=== PATIENT | female | born 1940 | race Caucasian/White ===

== ENCOUNTER → 2021-12-08 12:06 | Outpatient (CLI) | payer MEDICARE, SELFPAY ==
--- NOTE | ~2021-12-08 | MM_ITS ---
EXAMINATION: MM screening jorge BI w nathan HISTORY: Screening mammogram TECHNIQUE: Craniocaudal and mediolateral oblique 3-D tomosynthesis images were obtained and synthetic 2-D images were generated. CAD analysis was submitted and interpreted. COMPARISON: 03/08/2010 bilateral screening mammogram BREAST PARENCHYMAL COMPOSITION: The breasts are almost entirely fatty. FINDINGS: There is no evidence of suspicious mass, calcification, or architectural distortion to sugg est malignancy in either breast. There has been no suspicious interval change. IMPRESSION: 1. No mammographic evidence of malignancy. 2. Recommend routine screening mammography in one year. BI-RADS Category 1: Negative Reviewed, dictated and finalized at location A.
== END ==
PROVIDERS: PCP Emergency Medicine; Visit Provider Emergency Medicine
DX: Z12.31 Encounter for screening mammogram for malignant neoplasm of breast (principal)
CPT/HCPCS: 77063; 77067

== ENCOUNTER 2022-01-04 10:39 | Outpatient (CLI) | payer MEDICARE, SELFPAY ==
--- NOTE | ~2022-01-04 | XR_ITS ---
EXAM: XR ankle RT 2V DATE: 01/04/2022 10:59 HISTORY: S99.911A - Unspecified injury of right ankle, initial enc... . COMPARISON: None available. FINDINGS: Slightly decreased mineralization. No acute fracture or dislocation. Old avulsion fracture fragment at the tip of the lateral malleolus. No lytic or blastic lesion. Joint spaces are maintaine d. No erosion or periosteal change. Soft tissue swelling over the medial malleolus. IMPRESSION: No acute osseous finding in the right ankle. Reviewed, dictated and finalized at location K.
== END 2022-01-04 10:40 | disposition home or self-care (01) ==
PROVIDERS: PCP Emergency Medicine; Visit Provider Emergency Medicine
DX: S99.911A Unspecified injury of right ankle, initial encounter (principal); S99.921A Unspecified injury of right foot, initial encounter; X58.XXXA Exposure to other specified factors, initial encounter
CPT/HCPCS: 73600

== ENCOUNTER 2022-01-13 08:16 | Outpatient (CLI) | payer MEDICARE, SELFPAY ==
--- NOTE | ~2022-01-13 | US_ITS ---
EXAMINATION: US art doppler w press LE BI DATE: 01/13/2022 09:03 INDICATION: Peripheral vascular disease, unspecified. TECHNIQUE: Segmental pressures and plethysmographic and Doppler waveforms of the brachial and lower e xtremity arteries were obtained. COMPARISON: CT abdomen and pelvis 09/15/2015, 06/30/2013 FINDINGS: Right and left brachial artery pressures of 133 mm Hg and 132 mm Hg, respectively, are concordant (no rmal difference <= 30 mmHg). The right high-thigh pressure index is 1.20 (normal > 1.2). The right ankle-brachial index (DALTON) is 0 .98 (normal >= 0.9-1.0). The right great toe-brachial index (TBI) is 0.77 (normal >= 0.65). Arterial Doppler waveforms are biphasic from common femoral artery to the ankle. The left high-thigh pressure index is 1.28. The left DALTON is 0.98. The left TBI is 1.08. Arterial Dopp ler waveforms are biphasic from common femoral artery to the ankle. IMPRESSION: 1. No significant arterial occlusive disease. Reviewed, dictated and finalized at location A.
== END 2022-01-13 08:17 | disposition home or self-care (01) ==
PROVIDERS: PCP Emergency Medicine; Visit Provider Emergency Medicine
DX: I73.9 Peripheral vascular disease, unspecified (principal)
CPT/HCPCS: 93923

== ENCOUNTER 2022-03-08 13:43 | Emergency (ER) | payer MEDICARE, SELFPAY ==
[2022-03-08 13:55] VITALS: BP 146/91; PULSE 97; RESP 16; TEMP 36.3; O2SAT 93
--- NOTE | 2022-03-08 14:06 | ED.URI ---
HPI - URI/Sore Throat General Chief Complaint: Shortness of Breath/Dyspnea Stated Complaint: SOB Time Seen by Provider: 03/08/22 14:07 Source: patient and RN notes reviewed Mode of arrival: ambulatory Limitations: no limitations History of Present Illness HPI Narrative: 82-year-old female presents to the [facility] with complaints of shortness of breath that started on Monday as, 4 days ago. States it has gradually been getting worse. Patient states that whenever she goes to the ER which she does not want to do they admit her. Has not used her albuterol since yesterday. Smokes at least a pack a day. MD elicited complaint: cough and sinus pain Pertinent past history: pneumonia and COPD Onset (ago): day(s) (4) Consistency: constant and progressively worsening Related Data Home Medications Medication Instructions Recorded Confirmed mecobalamin (vitamin B12) 1,000 1,000 mcg PO DAILY 05/18/20 03/08/22 mcg chewable tablet Allergies Allergy/AdvReac Type Severity Reaction Status Date / Time Penicillins Allergy Unknown unknown Verified 03/08/22 13:49 Review of Systems Review of Systems: All systems reviewed & are unremarkable except as noted in HPI and below Constitutional: Constitutional: Reports no additional constitutional complaints, Denies chills and Denies fever(s) Eyes: Eyes: Reports no additional eye complaints ENT: Reports system reviewed and no additional complaints, except as documented Cardiovascular: Cardiovascular: Reports no additional cardiovascular complaints Respiratory: Respiratory: Reports as per HPI, Reports cough, Reports dyspnea and Reports wheezing Gastrointestinal: Gastrointestinal: Reports no additional gastrointestinal complaints Musculoskeletal: Musculoskeletal: Reports no additional musculoskeletal complaints Integumentary/Breasts: Skin/Breast: Reports system reviewed and no additional complaints, except as docu Neurologic: Reports system reviewed and no additional complaints, except as documented Psychiatric: Psychiatric: Reports no additional psychiatric complaints Allergic/Immunologic: Allergic/Immunologic: Reports no additional allergic/immunologic complaints [facility] Past Medical History Medical History (Updated 03/08/22 @ 14:28 by Anabel Powell APRN) COPD (chronic obstructive pulmonary disease) Depression HLD (hyperlipidemia) Family History Family History Mother Patient's mother is , Onset Age: 92 Social History Social History (Reviewed 03/08/22 @ 14:23 by JUAN Rubalcava Smoking status: Heavy tobacco smoker Alcohol intake: current Comments At the time of my signature, I reviewed and agree with the nursing past medical, surgical, social, and family history. There is no relevant family history pertinent to the patient complaint. Exam Const: General: healthy appearing, no acute distress, alert and well nourished Nutritional Appearance: well nourished Orientation/consciousness: patient oriented x3 Limitations: no limitations HENMT: Head: normal to inspection Ears: external ears normal Face/Nose/Sinus: Normal external nose present Face and sinus: normal facial exam Eyes: General: appearance normal, both eyes and all related structures Pupils: Equal, round and reactive pupils present Neck: Neck: normal visual inspection, no lymphadenopathy and no meningeal signs Chest: Chest palpation & inspection: normal inspection of the chest Resp: Effort & Inspection: labored and uses accessory muscles Auscultation: crackles bilateral throughout, no rales, no rhonchi and wheezes scattered wheezes and throughout Cardio: Rate: regular rate Rhythm: regular rhythm Skin: General skin exam: normal color Rashes: no rashes Wounds: no wounds Neuro: General: patient oriented x3, moves all extremities, no meningeal signs and no focal motor deficits Cranial nerves: Yes Equal, round and r
== END 2022-03-08 14:13 | disposition short-term general hospital (02) ==
PROVIDERS: Emergency Provider Nurse Practitioner; PCP Emergency Medicine
DX: R06.02 Shortness of breath (principal); J44.9 Chronic obstructive pulmonary disease, unspecified; E78.5 Hyperlipidemia, unspecified; F32.A Depression, unspecified
CPT/HCPCS: 99212; G0463

== ENCOUNTER 2022-03-08 15:02 | Emergency (ER) | payer MEDICARE, SELFPAY ==
[2022-03-08] VITALS (10 sets, daily range): BP systolic 108–148; BP diastolic 85–103; PULSE 89–109; RESP 16–26; O2SAT 91–99
--- NOTE | ~2022-03-08 | XR_ITS ---
XR chest 2V 03/08/2022 16:14 Indication: Shortness of breath with wheezing Procedure: 2 view chest Comparison: 05/18/2014 Findings: Cardiomegaly. Focal eventration of the right diaphragm anteriorly. There are interstitial i nfiltrates of the mid and lower lungs, likely mild edema. No significant effusion. No pneumothorax. Impression: 1: Cardiomegaly with probable mild interstitial edema. Reviewed, dictated and finalized at location B. Impression: 1: Cardiomegaly with probable mild interstitial edema.
--- NOTE | 2022-03-08 15:14 | ECG_ITS ---
Measurements Intervals [place] Rate: 99 P: 74 MD: 179 QRS: -8 QRSD: 102 T: 63 QT: 355 QTc: 456 Interpretive Statements SINUS RHYTHM POSSIBLE LEFT ATRIAL ENLARGEMENT [-0.1mV P WAVE IN V1/V2] POSSIBLE ANTERIOR MYOCARDIAL INFARCTION , PROBABLY OLD [30 ms Q WAVE IN V3/V4, OR R < 0.2 mV IN V4] NO PREVIOUS ECG AVAILABLE FOR COMPARISON Electronically Signed On 03-08-2022 16:28:07 CDT by Romulo Shaikh M.D.
[2022-03-08 15:31] LABS: Basophils Percent Auto 0.4 % (0.2-1.2); Eosinophils Absolute Auto 0.1 K/mm3 (0-0.3); Eosinophils Percent Auto 1.7 % (0-4.4); Hematocrit 45.4 % (37.0-47.0); Hemoglobin 15.3 g/dL (12.0-15.0); Immature Granulocyte Absolute 0.06 K/mm3 (0.00-0.031); Immature Granulocyte Percent A 0.9 % (0-0.5); Lymphocytes Absolute Auto 1.83 K/mm3 (0.9-3.2); Lymphocytes Percent Auto 26.1 % (18.3-44.2); Mean Corpuscular HGB Conc 33.7 g/dl (32-36); Mean Corpuscular Hemoglobin 31.4 pg (26-34); Mean Corpuscular Volume 93.2 fl (80-100); Mean Platelet Volume 9.9 fl (7.4-10.4); Monocytes Absolute Auto 0.8 K/mm3 (0.1-0.6); Monocytes Percent Auto 10.7 % (2.6-8.5); Neutrophils Absolute Auto 4.2 K/mm3 (1.3-6.7); Neutrophils Percent Auto 60.2 % (45.5-73.1); Platelet Count Result 187 k/mm3 (150-375); Red Blood Count 4.87 M/mm3 (4.2-5.4); Red Cell Distribution Width 13.4 % (11.5-14.5)
[2022-03-08 15:44] LABS: Alanine Aminotransferase 48 U/L (6-35); Albumin Level 4.4 g/dL (3.5-5.1); Alkaline Phosphatase 91 U/L (38-126); Anion Gap 14 mmol/L (8-16); Aspartate Amino Transferase 46 U/L (14-36); Bilirubin,Total 0.5 mg/dL (0.2-1.3); Blood Urea Nitrogen 15 mg/dL (7-17); Calcium 8.7 mg/dL (8.4-10.2); Carbon Dioxide 26 mmol/L (22-30); Chloride 95 mmol/L (98-107); Estimated CRCL calculation 48 ml/min; Estimated Glomerular Filt Rate > 60; Glucose 106 mg/dL (65-110); Potassium 3.6 mmol/L (3.4-5.0); Sodium 135 mmol/L (137-145)
[2022-03-08] MEDS: ALBUTEROL SULFATE NEB 2.5 MG/3 ML INH 5 MG INHALATION ×2 (15:49→18:48)
--- NOTE | 2022-03-08 15:51 | ED.GENADULT ---
HPI - General Adult General Chief complaint: Shortness of Breath/Dyspnea Stated complaint: sob Time Seen by Provider: 03/08/22 15:09 History of Present Illness HPI narrative: 82-year-old female with history of asthma presented emerged department for evaluation of worsening cough congestion and shortness of breath. Patient states she began having symptoms on during which she started developing cough and felt increasingly achy. Patient states over the course of the last few days her symptoms have continued to worsen. Patient is still a smoker. Patient was vaccinated against flu and COVID. Related Data Home Medications Medication Instructions Recorded Confirmed mecobalamin (vitamin B12) 1,000 1,000 mcg PO DAILY 05/18/20 03/08/22 mcg chewable tablet Allergies Allergy/AdvReac Type Severity Reaction Status Date / Time Penicillins Allergy Unknown unknown Verified 03/08/22 13:49 Review of Systems Review of Systems: CONSTITUTIONAL: Denies fever, chills, or sweats. EYES: Denies visual changes, redness, or discharge. ENT: Denies rhinorrhea, congestion, sore throat, or otalgia. CARDIOVASCULAR: Denies chest pain, palpitations, or edema. RESPIRATORY: Increasing wheeze and cough GASTROINTESTINAL: Denies abdominal pain, nausea, vomiting, or diarrhea. GENITOURINARY: Denies dysuria or hematuria. SKIN: Denies rash or itching. MUSCULOSKELETAL: Denies back pain, joint pain, or myalgia. NEUROLOGIC: Denies headache, numbness, or weakness. [facility] Past Medical History Medical History (Updated 03/09/22 @ 00:01 by Mau Andre) COPD (chronic obstructive pulmonary disease) Depression HLD (hyperlipidemia) Family History Family History Mother Patient's mother is , Onset Age: 92 Social History Social History Smoking status: Heavy tobacco smoker Alcohol intake: current Exam Narrative: APPEARANCE: Well appearing, no pain, no distress, well-nourished. HEAD: normocephalic, atraumatic. EYES: PERRLA/EOMI, conjunctivae clear. NOSE: Normal no drainage NECK: Supple. No adenopathy, no masses. RESPIRATORY: Airway patent, respirations nonlabored. Expiratory wheeze CARDIOVASCULAR: Regular rate and rhythm without murmurs rubs or gallops. ABDOMINAL: Soft, nontender, nondistended, normal bowel sounds MUSCULOSKELETAL: Moves all extremities. Strength/ROM intact, No edema, No calf tenderness. NEURO: Alert. Cranial nerves II through XII intact. Grossly intact SKIN: Warm, dry. Normal Color Course Course Emergency Course: Patient's flu and COVID were negative. Chest x-ray showed no focal pneumonia. Did show some interstitial edema. Patient's BNP is not elevated. Patient has no significant lower extremity swelling. On reexamination patient still has audible expiratory wheeze. Patient states she feels improved and is requesting discharge to home. Patient was educated on reasons to return to the emergency department. All question concerns were addressed. Vital Signs Vital signs: Vital Signs Pulse Rate 103 H 03/08/22 15:08 Respiratory Rate 20 03/08/22 15:08 Blood Pressure 138/103 H 03/08/22 15:08 Pulse Oximetry 94 03/08/22 15:08 Oxygen Delivery Room Air 03/08/22 15:08 Pulse Rate 109 H 03/08/22 19:17 Respiratory Rate 20 03/08/22 19:17 Blood Pressure 148/85 H 03/08/22 19:17 Pulse Oximetry 92 03/08/22 19:17 Oxygen Delivery Nasal Cannula 03/08/22 15:22 Oxygen Flow Rate 2 03/08/22 15:22 Medical Decision Making Vital Signs Vital Signs: Vital Signs Pulse Rate 103 H 03/08/22 15:08 Respiratory Rate 20 03/08/22 15:08 Blood Pressure 138/103 H 03/08/22 15:08 Pulse Oximetry 94 03/08/22 15:08 Oxygen Delivery Room Air 03/08/22 15:08 Pulse Rate 109 H 03/08/22 19:17 Respiratory Rate 20 03/08/22 19:17 Blood Pressure 148/85 H 03/08/22 19:
[2022-03-08 16:18] LABS: Influenza A QL RT-PCR Negative (Negative); Influenza B QL RT-PCR Negative (Negative); SARS-CoV-2 RNA PCR Negative
[2022-03-08 18:03] LABS: NT Pro B Type Natriuretic Pept 470 pg/mL (5-100)
[2022-03-08] MEDS: methylPREDNISolone SOD SUCC 125 MG VIAL IV PUSH (18:40)
[2022-03-08] MEDS: AZITHROMYCIN 250 MG TABLET 500 MG PO (19:13)
== END 2022-03-08 19:17 | disposition home or self-care (01) ==
PROVIDERS: Emergency Provider Emergency Medicine; PCP Emergency Medicine
DX: J44.9 Chronic obstructive pulmonary disease, unspecified (principal); E78.5 Hyperlipidemia, unspecified; F17.200 Nicotine dependence, unspecified, uncomplicated; Z20.822 Contact with and (suspected) exposure to COVID-19; I51.7 Cardiomegaly; R94.31 Abnormal electrocardiogram [ECG] [EKG]
CPT/HCPCS: 36415; 71046; 80053; 83880; 85025; 87502; 93005; 94640; 96374; 99284; A9270; J2930; U0003; U0005

== ENCOUNTER 2022-07-06 08:20 | Outpatient (CLI) | payer MEDICARE, SELFPAY ==
[2022-07-06 09:56] LABS: Alanine Aminotransferase 36 U/L (6-35); Albumin Level 4.4 g/dL (3.5-5.1); Alkaline Phosphatase 81 U/L (38-126); Anion Gap 8 mmol/L (8-16); Aspartate Amino Transferase 29 U/L (14-36); Bilirubin,Total 0.6 mg/dL (0.2-1.3); Blood Urea Nitrogen 14 mg/dL (7-17); Calcium 9.3 mg/dL (8.4-10.2); Carbon Dioxide 29 mmol/L (22-30); Chloride 102 mmol/L (98-107); Cholesterol 202 mg/dL (0-200); Estimated Glomerular Filt Rate > 60; Glucose 91 mg/dL (65-110); HDL Direct 48 mg/dL; Potassium 4.1 mmol/L (3.4-5.0); Sodium 139 mmol/L (137-145); Triglycerides 101 mg/dL (<150)
[2022-07-06 10:07] LABS: LDL Cholesterol Direct 124 mg/dL
== END 2022-07-06 08:21 | disposition home or self-care (01) ==
PROVIDERS: PCP Emergency Medicine; Visit Provider Emergency Medicine
DX: E78.2 Mixed hyperlipidemia (principal)
CPT/HCPCS: 36415; 80053; 80061

== ENCOUNTER → 2023-02-23 12:07 | Outpatient (CLI) | payer MEDICARE, SELFPAY ==
--- NOTE | ~2023-02-23 | DEXA_ITS ---
Bone Density Report Name: JODEE TORRES Age: 83 Sex: Female Ethnicity: White Date of : 1940 Indication: osteopenia; height loss; prior fracture; asthma or emphysema; postmenopausal Referring Provider: IVETTE CERNA Study: Bone densitometry was performed. Exam Date: February 23, 2023 Accession number: [id number] Bone Density: Region BMD T-score Z-score Classification AP Spine (L1, L2) 0.820 -1.4 1.1 Osteopenia Femoral Neck (Left) 0.500 -3.1 -0.8 Osteoporosis Total Hip (Left) 0.696 -2.0 0.2 Osteopenia Femoral Neck (Right) 0.500 -3.1 -0.8 Osteoporosis Total Hip (Right) 0.699 -2.0 0.2 Osteopenia Total Hip Mean 0.698 -2.0 0.2 Osteopenia World Health Organization criteria for BMD impression classify patients as: Normal (T-score at or above -1.0), Osteopenia (T-score between -1.0 and -2.5), or Osteoporosis (T-score at or below -2.5). 10-year Fracture Risk: FRAX not reported because: Some T-score for Spine Total or Hip Total or Femoral Neck at or below -2.5 Previous Exams: Region Exam Age BMD T-score BMD Change BMD Change Date g/cm2 vs Baseline vs Previous AP Spine(L1, L2) 02/23/2023 83 0.820 -1.4 0.012 0.012 09/11/2003 63 0.807 -1.6 Total Hip(Left) 02/23/2023 83 0.696 -2.0 -0.087 -0.087 09/11/2003 63 0.783 -1.3 Total Hip(Right) 02/23/2023 83 0.699 -2.0 -0.070 -0.070 09/11/2003 63 0.768 -1.4 *Denotes significance at 95% confidence level, LSC for AP Spine = 0.022 g/cm2, LSC for Total Hip = 0.027 g/cm2 Clinical Information Provided by Patient: Has had a low trauma fracture Smokes Has the following medical conditions: Asthma or Emphysema Patient maximum height was 64 Menopause Age: 46 No regular weight bearing exercise Does not regularly consume dairy products Drinks caffeinated beverages Onset of menses at age 15 Number of children 2 Impression: The patient has established osteoporosis, based on the Left Femoral Neck T-score and the existence of a prior fracture. The patient has risk factors, including: smoking, previous fracture. No significant bone loss was observed. Discussion: HIGH RISK OF FRACTURE. BONE DENSITY IS UNDESIRABLY LOW AT ONE OR MORE SKELETAL SITES, CONSISTENT WITH POSTMENOPAUSAL OSTEOPOROSIS. This patient's lowest T-score, in a patient who has previously fractured, meets the World Health Organization's (WHO) criteria for severe osteoporosis. In untreate
== END ==
PROVIDERS: PCP Emergency Medicine; Visit Provider Emergency Medicine
DX: Z78.0 Asymptomatic menopausal state (principal); M85.88 Other specified disorders of bone density and structure, other site; M81.0 Age-related osteoporosis without current pathological fracture; M85.852 Other specified disorders of bone density and structure, left thigh; M85.851 Other specified disorders of bone density and structure, right thigh
CPT/HCPCS: 77080

== ENCOUNTER 2023-11-19 09:58 | Inpatient (IN) | payer MEDICARE, SELFPAY ==
[2023-11-19] VITALS (16 sets, daily range): BP systolic 120–160; BP diastolic 62–94; PULSE 98–121; RESP 18–28; TEMP 36.2–36.8; O2SAT 83–99; BMI 28.2
--- NOTE | ~2023-11-19 | CT_ITS ---
EXAMINATION:CT diagnostic chest wo con DATE: 11/19/2023 12:00 INDICATION: Pulmonary nodules. Abnormal chest radiograph. TECHNIQUE: Computed tomography (CT) of the chest was performed without intravenous contrast. Automate d exposure control and iterative reconstruction technique were employed. The dose-length product (DLP ) was 119.03 mGy-cm. COMPARISON: CT abdomen and pelvis 09/15/2015, chest 2 views 11/19/2023 FINDINGS: There are tree-in-bud opacities and centrilobular nodules involving all lobes with a lower lung predominance. Calcified right lung nodules and calcified right hilar lymph nodes are consistent with old granulomatous disease. There are mild airspace opacities in right lower lobe and lingula. No pleural effusion. The heart size is normal. There are coronary artery calcifications. No pericardial effusion. There is mild thoracic spondylosis. IMPRESSION: 1. Diffuse lung disease with a lower lung predominance, consistent with pneumonia. Reviewed, dictated and finalized at location E. IMPRESSION: 1. Diffuse lung disease with a lower lung predominance, consistent with pneumon ia.
--- NOTE | ~2023-11-19 | XR_ITS ---
EXAMINATION: XR chest 2V DATE: 11/19/2023 11:08 INDICATION: Shortness of breath. Cough. TECHNIQUE: Frontal and lateral views of the chest were obtained. COMPARISON: Chest 2 views 03/08/2022 FINDINGS: There is a diffuse interstitial pattern in the lungs. There are nodules in the lower lung z ones. No pleural effusion or pneumothorax. The heart size is normal. IMPRESSION: 1. Mild pulmonary edema. 2. Nodules in the lower lung zones, which may be atelectasis, pneumonia, or metastatic disease. Consi yumiko CT. Reviewed, dictated and finalized at location E. IMPRESSION: 1. Mild pulmonary edema. 2. Nodules in the lower lung zones, which may be atelectasis, pneumonia, or met astatic disease. Consider CT.
--- NOTE | 2023-11-19 10:17 | ECG_ITS ---
Test Date: 2023-11-19 10:21:36 Measurements Intervals [place] Rate: 115 P: 78 DC: 156 QRS: 41 QRSD: 89 T: 60 QT: 328 QTc: 455 Interpretive Statements SINUS TACHYCARDIA POSSIBLE LEFT ATRIAL ENLARGEMENT BASELINE ARTIFACT- II, III, AVR, AVL, AVF, V2 ABNORMAL ECG No previous ECG available for comparison Electronically Signed On 11-19-2023 12:28:12 CDT by Sancho Siddiqui D.O.
--- NOTE | 2023-11-19 10:23 | ED.GENADULT ---
HPI - General Adult General Chief complaint: Upper Respiratory Infection Stated complaint: UPPER RESP INFECTION Time Seen by Provider: 11/19/23 10:12 History of Present Illness HPI narrative: Patient is an 83-year-old female who presents ER with shortness of breath and cough. Ongoing over last week. Subjective fevers and chills. Cough is nonproductive. Dyspnea is worse with exertion. Patient has history of smoking and COPD. No chest pain or chest pressure. She has no abdominal symptoms. No known sick contacts. Related Data Home Medications Medication Instructions Recorded Confirmed mecobalamin (vitamin B12) 1,000 1,000 mcg PO DAILY 05/18/20 11/19/23 mcg chewable tablet Allergies Allergy/AdvReac Type Severity Reaction Status Date / Time Penicillins Allergy Unknown unknown Verified 11/19/23 14:02 venlafaxine [From Effexor] AdvReac Intermediate [place] Verified 11/19/23 14:02 Review of Systems Review of Systems: All systems reviewed & are unremarkable except as noted in HPI and below Constitutional: Constitutional: Reports chills, Reports fatigue and Reports fever(s) ENT: Reports nasal congestion and Reports sore throat Cardiovascular: Cardiovascular: Reports no additional cardiovascular complaints Respiratory: Respiratory: Reports cough, Reports dyspnea and Reports wheezing Gastrointestinal: Gastrointestinal: Reports no additional gastrointestinal complaints Genitourinary: Genitourinary: Reports no additional female genitourinary complaints Integumentary/Breasts: Skin/Breast: Reports system reviewed and no additional complaints, except as docu PMFSH Past Medical History Medical History Benign essential hypertension COPD (chronic obstructive pulmonary disease) Depression History of small bowel obstruction HLD (hyperlipidemia) Incisional hernia, without obstruction or gangrene Intermittent claudication Postmenopausal Tobacco abuse Vitamin D deficiency Surgical History Surgical History History of partial colectomy Family History Family History Mother Patient's mother is , Onset Age: 92 Social History Social History Smoking status: Current every day smoker Tobacco type: cigarettes Second hand tobacco smoke exposure: Yes Alcohol intake: never Substance use: never Other substance usage details: uses CBD gummies Do You Feel Safe in your Home?: Yes Lack of Transportation: No Lack of Food: Never True Current Housing: I Have Housing Concerned About Future Housing: No Difficulty Paying Gas/Electric Bills: No Difficulty Paying for Meds: No Currently Unemployed: No Education: Decline to Answer Difficulty w/ Childcare or Family Care: No Spiritual care concerns: No Exam Narrative: GENERAL: Ill-appearing, well-nourished, and in no acute distress. HEAD: Normocephalic, atraumatic. ENT: Mucous membranes moist. CHEST: Diminished lung sounds bilaterally, faint wheezing, increased respiratory rate. HEART: Tachycardic and regular. Normal peripheral pulses. ABDOMEN: Soft, nontender, nondistended. EXTREMITIES: Normal range of motion. No edema. SKIN: Warm, dry, no rash. NEURO: Alert and oriented x3. PSYCH: Normal mood and affect. Course Course Emergency Course: Patient resting comfortably with oxygen. Informed of results. Discussed admission with IV antibiotics and verbalized understanding. Vital Signs Vital signs: Vital Signs Pulse Rate 121 H 11/19/23 10:19 Respiratory Rate 22 H 11/19/23 10:19 Blood Pressure 160/86 H 11/19/23 10:19 Pulse Oximetry 94 11/19/23 10:19 Temperature 98.3 F 11/19/23 14:09 Pulse Rate 98 11/19/23 14:09 Respiratory Rate 18 11/19/23 14:09 Blood Pressure 120/6
[2023-11-19] MEDS: IPRATROPIUM 0.5 MG/ALBUTEROL SULFATE 2.5 MG AMPUL.NEB 3 ML INHALATION ×3 (10:29→19:33)
[2023-11-19 10:46] LABS: Basophils Absolute Auto 0.1 K/mm3 (0.0-0.1); Basophils Percent Auto 0.5 % (0.2-1.2); Eosinophils Percent Auto 0.1 % (0-4.4); Hematocrit 48.1 % (37.0-47.0); Hemoglobin 15.6 g/dL (12.0-15.0); Immature Granulocyte Absolute 0.15 K/mm3 (0.00-0.031); Immature Granulocyte Percent A 0.8 % (0-0.5); Lymphocytes Percent Auto 4.8 % (18.3-44.2); Mean Corpuscular HGB Conc 32.4 g/dl (32-36); Mean Corpuscular Hemoglobin 30.8 pg (26-34); Mean Corpuscular Volume 94.9 fl (80-100); Monocytes Absolute Auto 1.3 K/mm3 (0.1-0.6); Monocytes Percent Auto 6.7 % (2.6-8.5); Neutrophils Absolute Auto 16.4 K/mm3 (1.3-6.7); Neutrophils Percent Auto 87.1 % (45.5-73.1); Platelet Count Result 306 k/mm3 (150-375); Red Blood Count 5.07 M/mm3 (4.2-5.4); Red Cell Distribution Width 13.3 % (11.5-14.5); White Blood Count 18.9 K/mm3 (4.5-10.0)
[2023-11-19 10:56] LABS: Lactic Acid Reflex 1.5 mmol/L (0.7-2.0)
[2023-11-19 10:57] LABS: Alanine Aminotransferase 20 U/L (6-35); Albumin Level 4.4 g/dL (3.5-5.1); Alkaline Phosphatase 119 U/L (38-126); Anion Gap 12 mmol/L (4-12); Aspartate Amino Transferase 20 U/L (14-36); Bilirubin,Total 0.8 mg/dL (0.2-1.3); Blood Urea Nitrogen 17 mg/dL (7-17); Calcium 9.5 mg/dL (8.4-10.2); Carbon Dioxide 27 mmol/L (22-30); Chloride 99 mmol/L (98-107); Estimated CRCL calculation 53 ml/min; Estimated Glomerular Filt Rate > 60; Glucose 119 mg/dL (65-110); Potassium 3.8 mmol/L (3.4-5.0); Sodium 138 mmol/L (137-145)
[2023-11-19 10:59] LABS: Influenza A QL RT-PCR Negative (Negative); Influenza B QL RT-PCR Negative (Negative); RSV RNA, RT-PCR Negative (Negative); SARS-CoV-2 RNA PCR Negative (Negative)
[2023-11-19 11:53] LABS: NT Pro B Type Natriuretic Pept 1010 pg/mL (19.9-100)
[2023-11-19] MEDS: FUROSEMIDE INJ 40 MG/4 ML VIAL IV PUSH (12:10)
[2023-11-19] MEDS: AZITHROMYCIN 500 MG/NS 250 ML 500 MG/250 ML BAG 250 MG IVPB (12:14)
--- NOTE | 2023-11-19 12:25 | PM.IMHP ---
H&P: HPI History of Present Illness Date/Time: 11/19/23 12:25 Chief Complaint: Cough, Congestion, Fatigue Narrative: 83 y/o F presents here with cough, congestion, and fatigue with PMH of COPD, depression, smoker, and HLD. The patient presents here with cough, congestion, fatigue, chills, body aches, and sore throat. Patient reports onset of symptoms 4 days ago on 11/15. Initially started with shortness of breath. Body aches started shortly after that. Symptoms constituted to progress and developed the cough (productive, green, copious). Endorses congestion and post-nasal drip with subsequent nausea and vomiting without abdominal pain. Fever of 100.2F yesterday afternoon. Endorsing increased sputum production. Denies chest pain, palpitations, syncope, or dizziness. Denying LE swelling or orthopnea. Initial VS at presentation: 97.6? F, HR 115, R 24, 160/86, and 83% on RA. 97% on 2L NC. ED workup showed: WBC 18.9, hemoglobin 15.6, no significant electrolyte derangements, creatinine 0.7 and GFR >60, lactic 1.5, and BNP 1010. Viral PCR negative. CXR showed mild pulmonary edema and lower lung zones. Chest CT showed diffuse lung disease with lower lung predominance consistent with pneumonia. Review of Systems Review of Systems: All systems reviewed & are unremarkable except as noted in HPI and below PMFSH Past Medical History Medical History (Updated 11/19/23 @ 18:11 by Laurie Monzon APRN) COPD (chronic obstructive pulmonary disease) Depression History of small bowel obstruction HLD (hyperlipidemia) HTN (hypertension) Incisional hernia, without obstruction or gangrene Intermittent claudication Postmenopausal Tobacco abuse Vitamin D deficiency Surgical History Surgical History History of partial colectomy Family History Family History Mother Patient's mother is , Onset Age: 92 Social History Social History Smoking status: Current every day smoker Tobacco type: cigarettes Second hand tobacco smoke exposure: Yes Alcohol intake: never Substance use: never Other substance usage details: uses CBD gummies Do You Feel Safe in your Home?: Yes Lack of Transportation: No Lack of Food: Never True Current Housing: I Have Housing Concerned About Future Housing: No Difficulty Paying Gas/Electric Bills: No Difficulty Paying for Meds: No Currently Unemployed: No Education: Decline to Answer Difficulty w/ Childcare or Family Care: No Spiritual care concerns: No Meds Home Medications and Allergies Home Medications Medication Instructions Recorded Confirmed Type mecobalamin (vitamin B12) 1,000 1,000 mcg PO DAILY 05/18/20 11/19/23 History mcg chewable tablet omega-3 fatty acids-fish oil 360 1 cap PO DAILY #90 caps 05/18/20 11/19/23 Rx mg-1,200 mg capsule (Fish Oil) cholecalciferol (vitamin D3) 50 See Rx Instructions .Route 10/12/21 11/19/23 Rx mcg (2,000 unit) tablet .COMPLEX #90 tabs hydroxyzine HCl 10 mg tablet See Rx Instructions .Route 03/16/22 11/19/23 Rx .COMPLEX #90 tabs escitalopram oxalate 20 mg tablet See Rx Instructions .Route 03/15/23 11/19/23 Rx .COMPLEX #90 tabs montelukast 10 mg tablet See Rx Instructions .Route 03/23/23 11/19/23 Rx .COMPLEX #90 tabs albuterol sulfate 90 mcg/actuation See Rx Instructions .Route 06/20/23 11/19/23 Rx aerosol inhaler .COMPLEX #8.5 ea lisinopril 10 See Rx Instructions .Route 06/20/23 11/19/23 Rx mg-hydrochlorothiazide 12.5 mg .COMPLEX #45 tabs tablet fluticasone 250 mcg-salmeterol 50 1 inh inhalation BID #60 ea 08/17/23 11/19/23 Rx mcg/dose blistr powdr for inhalation (Advair Diskus) Allergies Allergy/AdvReac Type Severity Reaction Status Date / Time Penicillins Allergy Unknown unknown Verified 11/19/23 14:02
--- NOTE | 2023-11-19 13:42 | ADMGEN ---
This patient, Mitzy Amos, was admitted to 3 [facility] Surg Room 323-01. Patient/family oriented to hospital policies and general routines including ID bracelet, bed and alarms, visiting hours, pain management, procedures, bathroom and other care routines, personal items, smoking policy, room service/diet, and visiting hours. Information on how to activate the Rapid Response Team has been discussed. Patient/Family are encouraged to report perceived risks to care and to ask questions if they do not understand what they are told or what they should do.
[2023-11-19 15:21] LABS: Appearance Urine Cloudy (Clear); Bacteria Urine None Seen /hpf; Bilirubin Urine Negative (Negative); Blood Urine Negative (Negative); Color Urine Yellow (Yellow); Glucose Urine UA Negative (Negative); Ketones Urine Negative (Negative); Leukocyte Esterase Ur Negative LEU/UL (Negative); Need Manual Microscopic Reviewed; Nitrate Urine Negative (Negative); Protein Urine Negative (Negative); RBC Urine 0-2 /hpf (0-2); Specific Grav Ur 1.009 (1.001-1.035); Squamous Epithelial Cell Urine None Seen /hpf (Few); Urobilinogen Urine 0.2 mg/dL (<2.0); WBC Urine 0-5 /hpf (0-3); pH Urine 5.5 (5.0-9.0)
[2023-11-19 15:22] LABS: Add Urine Microscopic? YES
[2023-11-19] MEDS: guaiFENesin 12 HR 600 MG TABCR PO (20:20)
[2023-11-19] MEDS: SODIUM CHLORIDE 0.9% IV 1,000 ML 100 ML IV CONT (20:21)
[2023-11-20] VITALS (13 sets, daily range): BP systolic 112–149; BP diastolic 62–78; PULSE 86–108; RESP 18–22; TEMP 36.3–36.7; O2SAT 90–95
--- NOTE | 2023-11-20 | ECHO_ITS ---
Patient Info Name: Mitzy Amos Age: 83 years : 1940 Gender: Female Ht: 64 in Wt: 164 lbs BSA: 1.85 m2 HR: 80 bpm BP: 108 / 63 mmHg Heart Rhythm: Sinus Rhythm Technical Quality: Fair Exam Date: 11/20/2023 9:22 AM Exam Location: Echo Lab Patient Status: Inpatient Admit Date: 11/20/2023 Staff Ordering Physician: Laurie Monzon APRN [place]: Olamide Hanley RDCS Attending Provider: Eliseo Pham MD Referring Physician: Na HANKINS; Exam Type: CA echo doppler color flow Study Info Indications - afib Complete two-dimensional, color flow and Doppler transthoracic echocardiogram is performed. Summary 1. Complete two-dimensional, color flow and Doppler transthoracic echocardiogram is performed. 2. Left ventricular chamber dimension is normal. 3. Left ventricular systolic function is hyperdynamic, estimated at >70%. 4. There is mildly increased left ventricular wall thickness. 5. The left ventricular diastolic function is grade I diastolic dysfunction. 6. There is mild mitral valve regurgitation. 7. The mitral valve annulus is mildly calcified. 8. There is mild tricuspid valve regurgitation. 9. Mild pulmonary hypertension, estimated pulmonary arterial systolic pressure is 43 mmHg. Left Ventricle Left ventricular chamber dimension is normal. Left ventricular systolic function is hyperdynamic, estimated at >70%. There is mildly increased left ventricular wall thickness. The left ventricular diastolic function is grade I diastolic dysfunction. Right Ventricle Right ventricular chamber dimension is normal. Right ventricular systolic function is normal. Left Atria Left atrial chamber dimension is normal. Right Atria Right atrial chamber dimension is normal. Atrial Septum Intact interatrial septum visualized by color flow imaging. Aortic Valve The aortic valve is trileaflet. There is mild aortic valve sclerosis. There is no aortic valve stenosis. There is trace aortic valve regurgitation. Pulmonic Valve The pulmonic valve is normal. There is no pulmonic valve stenosis. There is trace pulmonic regurgitation. Mitral Valve There is no mitral valve stenosis. There is mild mitral valve regurgitation. The mitral valve annulus is mildly calcified. Tricuspid Valve The tricuspid valve leaflets are normal. There is no significant tricuspid valve stenosis. There is mild tricuspid valve regurgitation. Mild pulmonary hypertension, estimated pulmonary arterial systolic pressure is 43 mmHg. Pericardium/Pleural The pericardium appears increased echogenicity of the pericardium. There is trivial pericardial effusion. Inferior Vena Cava Normal inferior vena cava with >50% collapse upon inspiration consistent with normal right atrial pressure, 10 mmHg. Aorta The aortic root size at the sinus of Valsalva is normal. Left Ventricular Outflow Tract Name Value Normal LVOT 2D LVOT Diameter 2.0 cm LVOT Doppler LVOT Peak Gradient 9 mmHg LVOT Mean Gradient 5 mmHg LVOT VTI 26 cm LVOT VTI/AV VTI Ratio 0.7 LVOT Stroke Volume 79 ml
[2023-11-20] MEDS: IPRATROPIUM 0.5 MG/ALBUTEROL SULFATE 2.5 MG AMPUL.NEB 3 ML INHALATION ×4 (02:11→20:00)
[2023-11-20] MEDS: guaiFENesin 12 HR 600 MG TABCR PO ×2 (08:25→20:43)
[2023-11-20] MEDS: ESCITALOPRAM OXALATE 10 MG TABLET 20 MG PO (08:25)
[2023-11-20] MEDS: predniSONE 20 MG TABLET 40 MG PO (08:25)
[2023-11-20] MEDS: OMEGA 3 POLYUNSAT FATTY ACIDS 1 GM CAP PO (08:25)
[2023-11-20] MEDS: MONTELUKAST SODIUM 10 MG TABLET PO (08:25)
[2023-11-20] MEDS: CHOLECALCIFEROL 1,000 UNITS TABLET 2000 UNITS PO (08:25)
[2023-11-20] MEDS: lisinopriL 5 MG TABLET PO (08:26)
[2023-11-20] MEDS: hydroCHLOROthiazide 6.25 MG TABLET PO (08:32)
[2023-11-20] MEDS: FLUTICASONE/SALMETEROL 115-21 MCG INHALER 1 PUFF 2 PUFF INHALATION ×2 (08:37→20:01)
--- NOTE | 2023-11-20 08:43 | PM.IMPN ---
Progress Note: A&P Assessment and Plan (1) COPD (chronic obstructive pulmonary disease): Code(s): J44.9 - Chronic obstructive pulmonary disease, unspecified Status: Acute (2) Pneumonia: Code(s): J18.9 - Pneumonia, unspecified organism Status: Acute (3) Sepsis: Qualifiers: Sepsis type: sepsis due to unspecified organism Sepsis acute organ dysfunction status: with acute organ dysfunction Severe sepsis acute organ dysfunction type: acute respiratory failure Acute respiratory failure type: with hypoxia Severe sepsis shock status: without septic shock Qualified Code(s): A41.9 - Sepsis, unspecified organism; R65.20 - Severe sepsis without septic shock; J96.01 - Acute respiratory failure with hypoxia Code(s): A41.9 - Sepsis, unspecified organism Status: Acute Plan # sepsis secondary pneumonia # COPD exacerbation # community-acquired pneumonia - patient cough with increased sputum production, CT scan concerning for tree-in-bud opacities in lower lungs concerning for pneumonia -antibiotics: Rocephin, azithromycin 11/18- - sputum cultures, blood cultures pending - wean O2 as tolerated, goal saturation greater 90%, on 2 L oxygen by nasal cannula, no home oxygen therapy - nebs: Continue DuoNebs q.i.d. - steroids: Continues prednisone 40 mg q.day for 5 day course - trending leukocytosis 18.9 on presentation however elevated hemoglobin may be hemoconcentrated. BNP a 1000, other labs within normal limits, UA neg, COVID neg, RSV neg, flu neg - for COPD at home on Advair, Singulair, albuterol # elevated BNP - BNP elevated at 1000 - echocardiogram shows hyperdynamic LV greater than 70% EF, grade 1 diastolic dysfunction - no clinical signs or symptoms of heart failure. # chronic conditions - essential hypertension: Lisinopril, hydrochlorothiazide - depression: Escitalopram - hyperlipidemia: Fish oil - vitamin b12 Diet: heart healthy DVT prophylaxis: Code status: Full code Disposition: Likely home in 2-3 days Time Spent With Patient Time: 35 minutes Subjective Date/time seen: 11/20/23 08:43 Interval history: Patient seen and examined. She is admitted yesterday for COPD exacerbation from bibasilar pneumonia, T-max 100.2?. she endorses cough, dyspnea. She denies fever, chills, chest pain, abdominal pain. She is on 2 L of oxygen which is new. Review of Systems Review of Systems: 10 point ROS complete, negative other than what is specified in HPI. Exam Narrative: - GENERAL: pleasant older woman in no acute distress. - EYES: EOMI. Anicteric. - HENT: Moist mucous membranes. - LUNGS: diminished lung bases, breathing comfortably on 2 L oxygen by nasal cannula, minimal scattered wheezing, no rales - CARDIOVASCULAR: Regular rate and rhythm. - ABDOMEN: Soft, non-tender and non-distended. No palpable masses. - EXTREMITIES: No edema. Peripheral pulses 2+. Non-tender. - NEUROLOGIC: No focal neurological deficits. CN II-XII grossly intact. - PSYCHIATRIC: Awake, Alert and oriented x 3. Appropriate mood and affect. - SKIN: No rashes or lesions. Warm. - LYMPH: No cervical lymphadenopathy. Objective Data Vital Signs Vital Signs: Vital Signs - 24 hr 11/19/23 10:32 11/19/23 10:39 11/19/23 10:41 Temperature 36.4 C Pulse Rate 115 H 115 H 119 H Respiratory Rate 24 H 25 H 26 H Blood Pressure 160/86 H Pulse Oximetry 83 L Oxygen Delivery Room Air Oxygen Flow Rate Fraction of Inspired Oxygen 11/19/23 10:44 11/19/23 10:19 11/19/23 11:13 Temperature 36.6 C Pulse Rate 121 H 114 H Respiratory Rate 22 H 28 H Blood Pressure 160/86 H 151/94 H Pulse Oximetry 97 94 95 Oxygen Delivery Nasal Cannula Oxygen Flow Rate 2 Fraction of Inspired Oxygen 11/19/23 13:00 11/19/23 13:20 11/19/23 13:27 Temperature 36.6 C Pulse Rate 100 105 H 106 H Respiratory Rate 26 H 20 20 Blood Pressure 140/90 Pulse Oximetry 99 Oxygen Delivery Oxy
[2023-11-20] MEDS: AZITHROMYCIN 500 MG/NS 250 ML 500 MG/250 ML BAG 250 MG IVPB (09:11)
[2023-11-21] VITALS (12 sets, daily range): BP systolic 118–140; BP diastolic 76–95; PULSE 81–102; RESP 16–22; TEMP 36.3–36.4; O2SAT 93–95
[2023-11-21 00:08] LABS: Glucose Point of Care 123 mg/dl (65-105)
[2023-11-21] MEDS: IPRATROPIUM 0.5 MG/ALBUTEROL SULFATE 2.5 MG AMPUL.NEB 3 ML INHALATION ×4 (02:39→19:59)
[2023-11-21 06:15] LABS: Basophils Percent Auto 0.3 % (0.2-1.2); Eosinophils Absolute Auto 0.1 K/mm3 (0-0.3); Eosinophils Percent Auto 0.7 % (0-4.4); Hematocrit 42.3 % (37.0-47.0); Hemoglobin 13.5 g/dL (12.0-15.0); Immature Granulocyte Absolute 0.32 K/mm3 (0.00-0.031); Immature Granulocyte Percent A 2.9 % (0-0.5); Lymphocytes Absolute Auto 2.05 K/mm3 (0.9-3.2); Lymphocytes Percent Auto 18.9 % (18.3-44.2); Mean Corpuscular HGB Conc 31.9 g/dl (32-36); Mean Corpuscular Hemoglobin 30.8 pg (26-34); Mean Corpuscular Volume 96.4 fl (80-100); Mean Platelet Volume 9.8 fl (7.4-10.4); Monocytes Absolute Auto 1.2 K/mm3 (0.1-0.6); Monocytes Percent Auto 11.2 % (2.6-8.5); Neutrophils Absolute Auto 7.2 K/mm3 (1.3-6.7); Platelet Count Result 277 k/mm3 (150-375); Red Blood Count 4.39 M/mm3 (4.2-5.4); Red Cell Distribution Width 13.1 % (11.5-14.5); White Blood Count 10.9 K/mm3 (4.5-10.0)
[2023-11-21 06:32] LABS: Anion Gap 6 mmol/L (4-12); Blood Urea Nitrogen 21 mg/dL (7-17); Calcium 9.1 mg/dL (8.4-10.2); Carbon Dioxide 31 mmol/L (22-30); Chloride 99 mmol/L (98-107); Estimated CRCL calculation 53 ml/min; Estimated Glomerular Filt Rate > 60; Glucose 95 mg/dL (65-110); Potassium 3.1 mmol/L (3.4-5.0); Sodium 136 mmol/L (137-145)
[2023-11-21] MEDS: CHOLECALCIFEROL 1,000 UNITS TABLET 2000 UNITS PO (08:30)
[2023-11-21] MEDS: MONTELUKAST SODIUM 10 MG TABLET PO (08:30)
[2023-11-21] MEDS: lisinopriL 5 MG TABLET PO (08:31)
[2023-11-21] MEDS: guaiFENesin 12 HR 600 MG TABCR PO ×2 (08:31→20:14)
[2023-11-21] MEDS: OMEGA 3 POLYUNSAT FATTY ACIDS 1 GM CAP PO (08:31)
[2023-11-21] MEDS: ESCITALOPRAM OXALATE 10 MG TABLET 20 MG PO (08:31)
[2023-11-21] MEDS: predniSONE 20 MG TABLET 40 MG PO (08:31)
[2023-11-21] MEDS: POTASSIUM CHLORIDE 20 MEQ ER TABLET 40 MEQ PO (08:40)
[2023-11-21] MEDS: FLUTICASONE/SALMETEROL 115-21 MCG INHALER 1 PUFF 2 PUFF INHALATION ×2 (08:45→19:59)
[2023-11-21] MEDS: hydroCHLOROthiazide 6.25 MG TABLET PO (08:50)
[2023-11-21] MEDS: AZITHROMYCIN 500 MG/NS 250 ML 500 MG/250 ML BAG 250 MG IVPB (09:48)
--- NOTE | 2023-11-21 12:10 | PM.IMPN ---
Progress Note: A&P Assessment and Plan (1) COPD (chronic obstructive pulmonary disease): Code(s): J44.9 - Chronic obstructive pulmonary disease, unspecified Status: Acute (2) Pneumonia: Qualifiers: Pneumonia type: due to unspecified organism Laterality: bilateral Lung location: unspecified part of lung Qualified Code(s): J18.9 - Pneumonia, unspecified organism Code(s): J18.9 - Pneumonia, unspecified organism Status: Acute (3) Sepsis: Qualifiers: Sepsis type: sepsis due to unspecified organism Sepsis acute organ dysfunction status: with acute organ dysfunction Severe sepsis acute organ dysfunction type: acute respiratory failure Acute respiratory failure type: with hypoxia Severe sepsis shock status: without septic shock Qualified Code(s): A41.9 - Sepsis, unspecified organism; R65.20 - Severe sepsis without septic shock; J96.01 - Acute respiratory failure with hypoxia Code(s): A41.9 - Sepsis, unspecified organism Status: Acute Plan # sepsis secondary pneumonia # COPD exacerbation # community-acquired pneumonia - patient cough with increased sputum production, CT scan concerning for tree-in-bud opacities in lower lungs concerning for pneumonia -antibiotics: Rocephin, azithromycin 11/18-, will transition to p.o. tomorrow - sputum cultures, blood cultures pending - wean O2 as tolerated, goal saturation greater 90%, on 2 L oxygen by nasal cannula, no home oxygen therapy - nebs: Continue DuoNebs q.i.d. - steroids: Continues prednisone 40 mg q.day for 5 day course - leukocytosis is improving. BNP a 1000, other labs within normal limits, UA neg, COVID neg, RSV neg, flu neg - for COPD at home on Advair, Singulair, albuterol # elevated BNP - BNP elevated at 1000 - echocardiogram shows hyperdynamic LV greater than 70% EF, grade 1 diastolic dysfunction - no clinical signs or symptoms of heart failure. # chronic conditions - essential hypertension: Lisinopril, hydrochlorothiazide - depression: Escitalopram - hyperlipidemia: Fish oil - vitamin b12 Diet: heart healthy DVT prophylaxis: Lovenox Code status: Full code Disposition: Plan for home tomorrow Time Spent With Patient Time: 35 minutes Subjective Date/time seen: 11/21/23 12:10 Interval history: Patient is doing much better today. Leukocytosis improved significantly. We are having difficulty weaning off oxygen. Potassium is 3.1 repleting. Plan for discharge tomorrow. Patient denies fever, chills, nausea vomiting and diarrhea. She denies any sputum production. Review of Systems Review of Systems: 10 point ROS complete, negative other than what is specified in HPI. Exam Narrative: - GENERAL: pleasant older woman in no acute distress. - EYES: EOMI. Anicteric. - HENT: Moist mucous membranes. - LUNGS: Clear to auscultation in all lung lopez, no wheezing rhonchi, diminished lung base - CARDIOVASCULAR: Regular rate and rhythm. - ABDOMEN: Soft, non-tender and non-distended. No palpable masses. - EXTREMITIES: No edema. Peripheral pulses 2+. Non-tender. - NEUROLOGIC: No focal neurological deficits. CN II-XII grossly intact. - PSYCHIATRIC: Awake, Alert and oriented x 3. Appropriate mood and affect. - SKIN: No rashes or lesions. Warm. - LYMPH: No cervical lymphadenopathy. Objective Data Vital Signs Vital Signs: Vital Signs - 24 hr 11/20/23 14:14 11/20/23 14:21 11/20/23 14:00 Temperature 36.7 C Pulse Rate 93 91 86 Respiratory Rate 20 20 19 Blood Pressure 112/62 Pulse Oximetry 95 Oxygen Delivery Oxygen Flow Rate 11/20/23 20:02 11/20/23 20:04 11/20/23 20:55 Temperature 36.3 C L Pulse Rate 90 90 108 H Respiratory Rate 20 20 Blood Pressure 149/78 H Pulse Oximetry 94 94 Oxygen Delivery Nasal Cannula Oxygen Flow Rate 2 11/21/23 00:12 11/21/23 02:41 11/20/23 20:15 Temperature 36.4 C L Pulse Rate 90 92 Respiratory Rate 20 20 Blood Pressure
[2023-11-21] MEDS: BENZONATATE 100 MG CAPSULE PO (20:18)
[2023-11-22] VITALS (13 sets, daily range): BP systolic 147–161; BP diastolic 89–91; PULSE 67–91; RESP 16–24; TEMP 35.9–36.4; O2SAT 91–95
[2023-11-22] MEDS: IPRATROPIUM 0.5 MG/ALBUTEROL SULFATE 2.5 MG AMPUL.NEB 3 ML INHALATION ×3 (02:55→13:27)
[2023-11-22 07:08] LABS: Anion Gap 9 mmol/L (4-12); Blood Urea Nitrogen 19 mg/dL (7-17); Calcium 9.6 mg/dL (8.4-10.2); Carbon Dioxide 32 mmol/L (22-30); Chloride 98 mmol/L (98-107); Estimated CRCL calculation 47 ml/min; Estimated Glomerular Filt Rate > 60; Glucose 87 mg/dL (65-110); Potassium 3.5 mmol/L (3.4-5.0); Sodium 139 mmol/L (137-145)
[2023-11-22 07:17] LABS: Hematocrit 47.4 % (37.0-47.0); Hemoglobin 15.2 g/dL (12.0-15.0); Mean Corpuscular HGB Conc 32.1 g/dl (32-36); Mean Corpuscular Hemoglobin 30.6 pg (26-34); Mean Corpuscular Volume 95.4 fl (80-100); Platelet Count Result 352 k/mm3 (150-375); Red Blood Count 4.97 M/mm3 (4.2-5.4); Red Cell Distribution Width 13.1 % (11.5-14.5); White Blood Count 13.6 K/mm3 (4.5-10.0)
[2023-11-22] MEDS: FLUTICASONE/SALMETEROL 115-21 MCG INHALER 1 PUFF 2 PUFF INHALATION (07:37)
[2023-11-22] MEDS: guaiFENesin 12 HR 600 MG TABCR PO (08:20)
[2023-11-22] MEDS: ESCITALOPRAM OXALATE 10 MG TABLET 20 MG PO (08:20)
[2023-11-22] MEDS: predniSONE 20 MG TABLET 40 MG PO (08:20)
[2023-11-22] MEDS: CHOLECALCIFEROL 1,000 UNITS TABLET 2000 UNITS PO (08:20)
[2023-11-22] MEDS: lisinopriL 5 MG TABLET PO (08:20)
[2023-11-22] MEDS: MONTELUKAST SODIUM 10 MG TABLET PO (08:20)
[2023-11-22] MEDS: OMEGA 3 POLYUNSAT FATTY ACIDS 1 GM CAP PO (08:20)
[2023-11-22] MEDS: hydroCHLOROthiazide 6.25 MG TABLET PO (08:24)
[2023-11-22] MEDS: ENOXAPARIN 40 MG/0.4 ML SYRINGE SUB-Q (08:24)
[2023-11-22] MEDS: AZITHROMYCIN 500 MG/NS 250 ML 500 MG/250 ML BAG 250 MG IVPB (09:09)
--- NOTE | 2023-11-22 13:31 | PM.DS ---
DS: Admitting Diagnosis Discharge Date 11/22/2023 Admitting Diagnosis PNA with a COPD exacerbation DS: Discharge Diagnosis Discharge Diagnosis (1) COPD (chronic obstructive pulmonary disease): Code(s): J44.9 - Chronic obstructive pulmonary disease, unspecified Status: Acute (2) Pneumonia: Qualifiers: Laterality: bilateral Lung location: unspecified part of lung Pneumonia type: due to unspecified organism Qualified Code(s): J18.9 - Pneumonia, unspecified organism Code(s): J18.9 - Pneumonia, unspecified organism Status: Acute (3) Sepsis: Qualifiers: Acute respiratory failure type: with hypoxia Sepsis acute organ dysfunction status: with acute organ dysfunction Sepsis type: sepsis due to unspecified organism Severe sepsis acute organ dysfunction type: acute respiratory failure Severe sepsis shock status: without septic shock Qualified Code(s): A41.9 - Sepsis, unspecified organism; R65.20 - Severe sepsis without septic shock; J96.01 - Acute respiratory failure with hypoxia Code(s): A41.9 - Sepsis, unspecified organism Status: Acute Plan # sepsis secondary pneumonia # COPD exacerbation # community-acquired pneumonia - patient cough with increased sputum production, CT scan concerning for tree-in-bud opacities in lower lungs concerning for pneumonia -antibiotics: Rocephin, azithromycin 11/18- - sputum cultures, blood cultures pending - wean O2 as tolerated, goal saturation greater 90%, on 2 L oxygen by nasal cannula, no home oxygen therapy - nebs: Continue DuoNebs q.i.d. - steroids: Continues prednisone 40 mg q.day for 5 day course - trending leukocytosis 18.9 on presentation however elevated hemoglobin may be hemoconcentrated. BNP a 1000, other labs within normal limits, UA neg, COVID neg, RSV neg, flu neg - for COPD at home on Advair, Singulair, albuterol # elevated BNP - BNP elevated at 1000 - echocardiogram shows hyperdynamic LV greater than 70% EF, grade 1 diastolic dysfunction - no clinical signs or symptoms of heart failure. # chronic conditions - essential hypertension: Lisinopril, hydrochlorothiazide - depression: Escitalopram - hyperlipidemia: Fish oil - vitamin b12 Diet: heart healthy DVT prophylaxis: Code status: Full code Disposition: Likely home in 2-3 days DS: Summary Hospital Course Hospital Course: Patient 83-year-old female with a past medical history COPD, hyperlipidemia, hypertension, tobacco abuse who presented to the ED with complaints of cough, congestion and fatigue. Patient stated that all of her systems started on 11/15. She did have a productive green cough. She also endorsed sputum changes and quantity. She also noted to have a fever 100.2. White count upon arrival was 18.9 BNP was 1010. Viral panel negative. Chest x-ray showed pulmonary edema. Chest CT showed lung disease with lower lung predominance consistent with pneumonia. Echo was performed showed an EF greater than 70% with grade 1 diastolic dysfunction. Currently patient is doing well. She has been weaned to room air. Home O2 eval was performed. Currently he denies any chest pain, shortness a breath, nausea, vomiting, diarrhea constipation. She denies any current urinary dysfunction. White count is 13.6 today most likely related to the steroid use. She was also given IV steroids which is been converted to p.o. steroids. Urine was unremarkable. At this time patient is stable for discharge per labs and vital signs. Will have patient follow-up with Pulmonary explain her to ask for a Pulmonary consult by her primary care provider. Patient did verbalize understanding. Status at Discharge Functional status at discharge: independent ambulation Overall status at discharge: patient is progressing back to baseline Time Spent with Patient Time attestation: Total time spent providing and/or coordinating discharge services: 41 minutes Time spent: Greater than 30 minut
--- NOTE | 2023-11-22 14:23 | PCRCNOTE ---
HOME O2 EVAL COMPLETE. PATIENT DOES NOT REQUIRE HOME O2 AT THIS TIME.. RN NOTIFIED.
== END 2023-11-22 14:50 | disposition home or self-care (01) | DRG 871 ==
LOC: ANHED 10:45 → ANH3MEDSUR 13:34
PROVIDERS: Student in an Organized Health Care Education/Training Program; Admitting Provider Internal Medicine; Emergency Provider Emergency Medicine; PCP Emergency Medicine; Visit Provider Nurse Practitioner
DX: A41.9 Sepsis, unspecified organism (principal); J18.9 Pneumonia, unspecified organism; J96.01 Acute respiratory failure with hypoxia; J44.0 Chronic obstructive pulmonary disease with (acute) lower respiratory infection; J44.1 Chronic obstructive pulmonary disease with (acute) exacerbation; R65.20 Severe sepsis without septic shock; E87.6 Hypokalemia; I10 Essential (primary) hypertension; I73.9 Peripheral vascular disease, unspecified; E78.5 Hyperlipidemia, unspecified; E55.9 Vitamin D deficiency, unspecified; F32.A Depression, unspecified; Z20.822 Contact with and (suspected) exposure to COVID-19; Z72.0 Tobacco use
CPT/HCPCS: 36415; 71046; 71250; 80048; 80053; 81001; 82948; 83605; 83735; 83880; 85025; 85027; 87040; 87637; 93005; 93306; 94618; 94640; 96365; 96366; 96367; 96375; 99285; A9270; G0378; J0456; J0696; J1650; J1940; J7030; J7512

== ENCOUNTER 2024-11-29 09:38 | Outpatient (CLI) | payer MEDICARE, SELFPAY ==
--- NOTE | ~2024-11-29 | XR_ITS ---
Lumbosacral Spine: AP and lateral views Clinical History: Pain Findings: There is levoscoliosis. There is 7 mm anterolisthesis of L4 over L5. There is advanced dege nerative disc narrowing at L5-S1. There is severe facet arthropathy throughout the lumbar spine. Ther e is moderate degenerative disc change at L2-L3, L3-L4, L4-L5. The sacroiliac joints are normally out lined. Impression: Moderate to advanced degenerative spondylosis. 7 mm anterolisthesis of L4 over L5. Reviewed, dictated and finalized at location M. Impression: Moderate to advanced degenerative spondylosis. 7 mm anterolisthesis of L4 over L5.
--- NOTE | ~2024-11-29 | XR_ITS ---
AP view of the pelvis and AP and lateral views of the bilateral hips Clinical history: Pain Findings: No acute fracture or dislocation is seen. Osseous alignment is anatomic. Bilateral hip and SI joint spaces are preserved. Soft tissues are unremarkable. Impression: No significant abnormality is seen. Reviewed, dictated and finalized at location . Impression: No significant abnormality is seen.
== END 2024-11-29 09:39 | disposition home or self-care (01) ==
PROVIDERS: PCP Emergency Medicine; Visit Provider Emergency Medicine
DX: M25.559 Pain in unspecified hip (principal); M54.50 Low back pain, unspecified; M43.06 Spondylolysis, lumbar region
CPT/HCPCS: 72100; 73521

== ENCOUNTER 2024-12-03 12:31 | Outpatient (CLI) | payer MEDICARE, SELFPAY ==
--- NOTE | ~2024-12-03 | XR_ITS ---
XR lumbar spine 6V w bending 12/03/2024 13:04 Indication: Low back pain. Spondylolisthesis. Procedure: 7 views lumbar spine Comparison: 11/29/2024 Findings: Levoscoliosis. There is grade 2 spondylolisthesis at L4-5. There is disc narrowing at all l umbar levels. There is multilevel facet hypertrophy. There is grade 1 spondylolisthesis at L5-S1. No acute fracture or traumatic malalignment. Sacral foramen are symmetric. Impression: 1: Severe lumbar spondylosis with levoscoliosis and spondylolisthesis at L4-5 and L5-S1 secondary to facet hypertrophy. Reviewed, dictated and finalized at location A. Impression: 1: Severe lumbar spondylosis with levoscoliosis and spondylolisthesis at L4-5 a nd L5-S1 secondary to facet hypertrophy.
== END 2024-12-03 12:32 | disposition home or self-care (01) ==
PROVIDERS: PCP Emergency Medicine; Visit Provider Anesthesiology Pain Medicine
DX: M47.816 Spondylosis without myelopathy or radiculopathy, lumbar region (principal); M41.86 Other forms of scoliosis, lumbar region; M43.17 Spondylolisthesis, lumbosacral region
CPT/HCPCS: 72114

== ENCOUNTER 2024-12-30 12:37 | Outpatient (CLI) | payer MEDICARE, SELFPAY ==
--- NOTE | ~2024-12-30 | MR_ITS ---
MRI of the lumbar spine Clinical History: Radiculopathy Technique: Axial T2-weighted images, and sagittal T1-weighted, T2-weighted, and T2 fat-sat images wer e acquired. Findings: No fracture identified. There is 7 mm anterolisthesis of L4 over L5. There are extensive re active marrow signal changes about the L2-L3 disc space, and to a lesser extent about the L3-L4 and L 4-L5 disc spaces, compatible with Modic changes. Possible very early developing Schmorl's node in the L3 vertebral body. At L1-L2, there is minimal disc bulge and mild facet arthropathy. No central canal stenosis. There is mild bilateral neural foraminal narrowing. At L2-L3, there is severe degenerative disc narrowing. Diffuse disc bulge and severe facet arthropath y result in severe spinal canal stenosis/thecal sac compression. There is severe right neural foramin al narrowing, and moderate left neural foraminal narrowing. At L3-L4, there is advanced degenerative distended. There is diffuse disc bulge with superimposed sma ll central disc extrusion. There is severe facet arthropathy. There is severe central canal stenosis/ thecal sac compression, and severe bilateral neural foraminal compromise, right worse than left. At L4-L5, there is diffuse disc bulge with severe facet arthropathy result in severe spinal canal devora nosis/thecal sac compression. There is moderate to severe bilateral neural foraminal narrowing. At L5-S1, there is advanced degenerative disc narrowing. There is minimal disc bulge with mild facet arthropathy. No central canal stenosis or definite neural foraminal narrowing. Paravertebral soft tissues are unremarkable. Impression: Severe degenerative spondylitic changes at L2-L3, L3-L4, L4-L5, as detailed above. 7 mm anterolisthesis of L4 over L5. Reviewed, dictated and finalized at location . Impression: Severe degenerative spondylitic changes at L2-L3, L3-L4, L4-L5, as detailed abo ve. 7 mm anterolisthesis of L4 over L5.
== END 2024-12-30 12:38 | disposition home or self-care (01) ==
LOC: MICIMG 12:38
PROVIDERS: PCP Emergency Medicine; Visit Provider Anesthesiology Pain Medicine
DX: M47.27 Other spondylosis with radiculopathy, lumbosacral region (principal); M43.16 Spondylolisthesis, lumbar region
CPT/HCPCS: 72148

== ENCOUNTER 2025-01-27 08:30 | Day surgery (SDC) | payer MEDICARE, SELFPAY ==
--- NOTE | ~2025-01-27 | XR_ITS ---
XR fluoroscopy no charge Indication: Bilateral L3-4 transforaminal epidural steroid injection TECHNIQUE: Fluoroscopy used during Bilateral L3-4 transforaminal epidural steroid injection performed by [Lyle Cee MD] on 01/27/2025. 40 seconds of fluoroscopy with 60 fluoroscopic images captured. FINDINGS: Correlate with procedure note. IMPRESSION: Fluoroscopy used during Bilateral L3-4 transforaminal epidural steroid injection . Reviewed, dictated and finalized at location O. IMPRESSION: Fluoroscopy used during Bilateral L3-4 transforaminal epidural ster oid injection .
--- NOTE | 2025-01-27 08:55 | WPDHPUPDATE1 ---
History and Physical Update Update Date/Time: 01/27/25 08:55 History and Physical has been reviewed, including an updated exam of the patient. There are NO changes in the patient's condition. Risks, benefits, and alternatives have been discussed and questions answered. Patient agrees to proceed with procedure.
--- NOTE | 2025-01-27 08:56 | P.OP_ITS ---
Procedure Note - Detailed Date of Procedure 01/27/25 Pre-op Diagnosis Lumbosacral radiculopathy, lumbar spinal stenosis Post-op Diagnosis Same Procedure Performed Bilateral Lumbar Transforaminal Epidural Steroid Injection under Fluoroscopic Guidance and with Contrast Control at L3-4. Surgeon Lyle Cee MD Anesthesia Local Description of Procedure INFORMED CONSENT: Risks, benefits and alternatives to the procedure were discussed in detail with the patient who expressed explicit understanding and consent to proceed. Patient was informed verbally and in written form regarding the risks associated with the procedure including the low risk of serious infection, bleeding/bruising, allergic reaction, nerve or organ injury, paralysis, procedural site pain or discomfort, worsening pain and/or mobility, failure to treat and/or disfigurement. The patient expressed explicit understanding and consent to proceed. All materials required for the procedure were available prior to procedure start. Site and side was marked prior to procedure and confirmed in the presence of the patient. PROCEDURE IN DETAIL: The patient was brought to the procedural suite and placed in the prone position. Patient was made comfortable with use of pillows under the head/chest, hips and ankles. Skin overlying the injection site was prepared broadly with ChloraPrep applicator and draped in a sterile manner. Aseptic technique was employed throughout. The endplates of the vertebral body at the site of interest were aligned in the AP view. Ipsilateral oblique angulation was utilized to better visualize the neuroforamen of interest. Local anesthesia was established by infiltration with approximately 5 mL of 0.5% PF lidocaine via a 1-1/2 inch 27-gauge needle. A 22-gauge 3.5 inch Tequila (pencil point) spinal needle was advanced until the needle approached the 6 o'clock position on the pedicle just superior to the exiting nerve root. on the right at L3-4. Lateral view was utilized to confirm appropriate position of the needle tip within the superior and posterior portion of the respective foramen. In an AP view, 1 mL of Omnipaque 300 contrast medium was injected after negative aspiration for CSF, blood or other bodily fluid, showing appropriate neurogram without evidence of intravascular or intrathecal spread of contrast. Digital subtraction imaging was used with an additional 1ml of the same contrast medium to confirm absence of intravascular contrast spread. A 1mL solution containing 5 mg of dexamethasone was injected after negative repeat aspiration. Appropriate spread of the injectate was confirmed with washout of previously injected contrast. No parasthesias were elicited. Needle was removed completely intact without difficulty. The same exact procedure was repeated for all remaining levels on the contralateral side, left L3-4 neuroforamen, modified as necessary to accommodate for the new target location with identical findings and results and no evidence of complication. Images were saved and documented in the patient chart. Patient's skin was cleane d and sterile bandage applied. The patient tolerated the procedure well. The patient was transported to the recovery area in stable condition where they were observed for an appropriate amount of time prior to discharge, without evidence of complication. The patient was instructed to avoid excessive activity for the next 48 hours, including climbing and frequent use of stairs. Showers only for 48 hours. They were instructed not to drive or operate heavy machinery for 24 hours. They are to monitor for severe headaches, fevers, chills, night sweats, erythema/swelling at the site or any other signs of infection, bleeding/bruising, bowel or bladder changes as well as new pain, weakness or numbness in the upper or lower extremity. Should they notice these changes, they are instructed to call our office immediately or report directly to the nearest Emergency Department if no answer or if after posted office hours. COMPLICATIONS: None COMMENTS: None CONTRAST WASTED: 26 mL Omnipaque 300. STEROID WASTED: 0 mg of dexamethasone. Complications No immediate complications Condition Stable Disposition Same day [facility] Billing Surgery - Charge Forward: Surgery Billing
[2025-01-27 08:57] VITALS: BP 183/90; PULSE 99; RESP 20; TEMP 36.6; O2SAT 93
[2025-01-27 09:08] VITALS: BP 145/83; PULSE 100; RESP 21; O2SAT 93
[2025-01-27] MEDS: LIDOCAINE 2% PF LOCAL INJ 5 ML VIAL INFILTRATE (09:10)
[2025-01-27] MEDS: LIDOCAINE 1% PF INJ 5 ML VIAL INFILTRATE (09:10)
[2025-01-27] MEDS: dexAMETHasone SOD PHOS INJ 10 MG/ML 1 ML VIAL IM (09:10)
[2025-01-27 09:17] VITALS: BP 134/84; PULSE 91; RESP 16; O2SAT 94
== END 2025-01-27 09:31 | disposition home or self-care (01) ==
PROVIDERS: PCP Emergency Medicine; Visit Provider Anesthesiology Pain Medicine
PROC: (CPT 64483; principal; 2025-01-27 09:30)
DX: M47.817 Spondylosis without myelopathy or radiculopathy, lumbosacral region (principal); M43.16 Spondylolisthesis, lumbar region; G89.29 Other chronic pain
CPT/HCPCS: 64483 ×2; 99199; J1100

== ENCOUNTER 2025-03-19 09:41 | Inpatient (IN) | payer MEDICARE, SELFPAY ==
[2025-03-19] VITALS (11 sets, daily range): BP systolic 100–150; BP diastolic 75–105; PULSE 89–117; RESP 13–19; TEMP 35.8–36.8; O2SAT 94–100; BMI 29.2
--- NOTE | ~2025-03-19 | CT_ITS ---
EXAMINATION: CT lumbar spine wo con DATE: 03/19/2025 10:31 INDICATION: Fall TECHNIQUE: Computed tomography (CT) of the lumbar spine was performed without intravenous contrast. Automated exposure control and iterative reconstruction technique were employed. The dose-length product was 1028.09 mGy-cm. COMPARISON: None FINDINGS: 14 degree thoracolumbar dextrocurvature measured between T10 and L2 and T12. 3 levoscoliosis measured between L2 and L5. 3 mm anterolisthesis L4 on L5. Anterior fusion across the L5-S1 disc space. Vertebral body heights are normal. No fracture. Mild to moderate right-sided prominent disc height loss and vacuum phenomena at L2-L3 and L3-L4. Mild disc height loss at T11-T12 and L4-L5 with additional vacuum phenomena at the lateral. Bilateral low density adrenal nodules consistent with adenomas the largest on the left measuring 2 x 1.5 cm. 1.7 cm right renal cyst. Calcified degenerative fibroids at the visualized portion of the uterine fundus. Suggestion of a suture line along the sigmoid colon. There are few scattered sigmoid diverticula without adjacent inflammatory stranding to suggest diverticulitis. The following disc levels are specifically discussed: T11-T12: Disc is bulging. There is mild right and moderate left facet joint osteoarthritis. There is mild right and moderate left neural foraminal stenosis. There is mild central canal stenosis. T12-L1: The disc does not extend beyond the endplate margin. There is mild bilateral facet joint osteoarthritis. There is no neural foraminal stenosis. There is no central canal stenosis. L1-L2: Disc is mildly bulging. There is mild bilateral facet joint osteoarthritis. There is no neural foraminal stenosis. There is no central canal stenosis. L2-L3: Disc is bulging. There is moderate bilateral facet joint osteoarthritis. There is moderate right neural foraminal stenosis. There is mild central canal stenosis. L3-L4: Disc is bulging. There is severe bilateral facet joint osteoarthritis. There is moderate bilateral neural foraminal stenosis. There is moderate to severe central canal stenosis. L4-L5: Disc is bulging. There is severe bilateral facet joint osteoarthritis. There is moderate to severe bilateral neural foraminal stenosis. There is moderate to severe central canal stenosis. L5-S1: Disc is bulging. There is moderate bilateral facet joint osteoarthritis. There is mild bilateral neural foraminal stenosis. There is no central canal stenosis. IMPRESSION: 1. Mild S-shaped scoliosis of the lumbar and lower thoracic spine with mild to moderate spondylosis. No acute osseous abnormality. Reviewed, dictated and finalized at location A. OR RESEARCH PROJECT MANAGER
--- NOTE | ~2025-03-19 | XR_ITS ---
EXAM/PROCEDURE: XR chest 1V portable HISTORY: SIB, PRE OP COMPARISON: March 19 TECHNIQUE: Portable technique FINDINGS: The lungs remain clear and heart size within normal limits. No gross interval change from yesterday's portable chest x-ray. IMPRESSION: No acute findings. Reviewed, dictated and finalized at location A. CTOR OF OPERATIONS SUPPORT IMPRESSION: No acute findings.
--- NOTE | ~2025-03-19 | XR_ITS ---
Examination: XR chest 1V Clinical History: hip fx Comparison: 11/19/2023 Technique: Portable AP Findings: Heart size normal. Lungs clear. Eventration right hemidiaphragm. No acute bony abnormality. IMPRESSION: 1. No acute cardiopulmonary findings given portable technique. Reviewed, dictated and finalized at location R. /HOSTESS RESTAURANT
--- NOTE | ~2025-03-19 | XR_ITS ---
EXAM/PROCEDURE: XR surgery orthopedic HISTORY: LT IT NAIL COMPARISON: None available. TECHNIQUE: Orthopedic fixation FINDINGS: Intraoperative fluoroscopic spot images demonstrate placement of intramedullary nail in the femur with dynamic compression screws about left hip fracture. Fluoroscopy time: 57.5 seconds Dose: 14.14 mGy IMPRESSION: As above. See also operative/surgical notes for complete details. Reviewed, dictated and finalized at location A. UNT MANAGER RELIEF
--- NOTE | ~2025-03-19 | XR_ITS ---
EXAMINATION: XR hip LT 2V w AP pelvis, 03/19/2025 10:37 CHARGE GANG WEIGHER HISTORY: fall, deformity COMPARISON: No comparisons available. Findings: Displaced comminuted left intertrochanteric fracture. No significant degenerative changes. Soft tissues unremarkable. Impression: Fractures detailed above Reviewed, dictated and finalized at location P. GE GANG WEIGHER Impression: Fractures detailed above
--- NOTE | ~2025-03-19 | CT_ITS ---
CT CERVICAL SPINE WITHOUT CONTRAST CLINICAL HISTORY: fall Technique: Axial images thoracic inlet to skull base Sagittal and coronal reformats. No contrast CT images acquired with automatic exposure control for dose reduction DLP: 381 mGy-cm Comparison: None Findings: No acute fracture. Grade 1 anterolisthesis of C2 on 3, C4 on 5. Vertebral bodies normal height. Moderate degenerative changes. Disc disease C5-7. Prevertebral soft tissues within normal limits. Visualized lung apices: Clear. Visualized thyroid: Unremarkable. No enlarged cervical nodes. IMPRESSION: 1. No acute findings. Reviewed, dictated and finalized at location R. ER SHOP SUPERVISOR IMPRESSION: 1. No acute findings.
--- NOTE | ~2025-03-19 | CT_ITS ---
CT brain without contrast HISTORY: Injury COMPARISON: None. TECHNIQUE: Multiplanar images were obtained of the head without intravenous contrast. FINDINGS: ICH: No acute intracranial hemorrhage, mass effect or midline shift. No extra- axial fluid collections. Mass(es): There is no mass or mass effect seen. CVA: No evidence of acute infarct is seen. 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 CSF Spaces: There is no evidence of hydrocephalus. The CSF spaces are appear normal. Skull: The calvarium is intact. Sinuses/Mastoids: There is a sessile mucous retention cyst versus focal mucosal thickening versus less likely polyp in the inferior right maxillary sinus. The mastoid air cells are clear. Orbits: There has been bilateral cataract removal. IMPRESSION: No acute brain findings. No significant abnormality is seen. All CT scans at this facility are performed using low dose modulation techniques as appropriate to perform exam including the following: automated exposure control; use of iterative reconstruction technique; adjustment of the mA and/or kV according to patient size (this includes techniques or standardized protocols for targeted exams where dose is matched to indication/reason for exam). Reviewed, dictated and finalized at location A. CIPAL SERVICES MANAGER IMPRESSION: No acute brain findings. No significant abnormality is seen. All CT scans at this facility are performed using low dose modulation techniqu es as appropriate to perform exam including the following: automated exposure c ontrol; use of iterative reconstruction technique; adjustment of the mA and/or kV according to patient size (this includes techniques or standardized protocol s for targeted exams where dose is matched to indication/reason for exam).
--- NOTE | 2025-03-19 09:46 | ECG_ITS ---
Test Date: 2025-03-19 10:03:17 Measurements Intervals [place] Rate: 90 P: 77 NM: 187 QRS: -15 QRSD: 101 T: 67 QT: 378 QTc: 464 Interpretive Statements SINUS RHYTHM NONSPECIFIC ST ABNORMALITY ABNORMAL ECG Compared to ECG 11/19/2023 10:21:36 Sinus tachycardia no longer present Electronically Signed On 03-19-2025 14:41:34 PROJECT FINANCE ANALYST by Charles Cleveland M.D.
--- NOTE | 2025-03-19 09:54 | ED.FALL ---
HPI - Fall General Chief Complaint: Fall <Cammy Richards PA-C - Last Filed: 03/20/25 11:17> Stated Complaint: fall <Cammy Richards PA-C - Last Filed: 03/20/25 11:17> Time Seen by Provider: 03/19/25 09:43 <Cammy Richards PA-C - Last Filed: 03/20/25 11:17> Source: patient <Cammy Richards PA-C - Last Filed: 03/20/25 11:17> Mode of arrival: EMS <Cammy Richards PA-C - Last Filed: 03/20/25 11:17> Limitations: no limitations <ADRIÁN Terry Last Filed: 03/20/25 11:17> History of Present Illness HPI Narrative: This is a 85 year old female that presents to the ER for a fall today with left hip pain. Reports she missed a step. Fell backwards. Reports pain to the left hip. Unable to get up. Unsure if she hit her head. She did not lose consciousness. Also reports low back pain. Denies vision changes, vomiting, numbness, weakness. <Cammy Richards PA-C - Last Filed: 03/20/25 11:17> Related Data Home Medications: Home Medications ?Medication ?Instructions ?Recorded ?Confirmed ?Last Taken ?Type cholecalciferol (vitamin D3) 25 25 mcg PO DAILY 01/21/25 03/19/25 01/26/25 History mcg (1,000 unit) capsule (Vitamin D3) ibuprofen 200 mg tablet (Advil) 400 mg PO Q6H PRN pain 01/21/25 03/19/25 01/19/25 History benzonatate 100 mg capsule 100 mg PO TID PRN cough 03/19/25 03/19/25 Unknown History escitalopram oxalate 20 mg tablet 20 mg PO DAILY 03/19/25 03/19/25 Unknown History fluticasone 250 mcg-salmeterol 50 1 inh inhalation Q12H 03/19/25 03/19/25 Unknown History mcg/dose blistr powdr for inhalation guaifenesin 600 mg tablet, 600 mg PO Q12H PRN cough 03/19/25 03/19/25 Unknown History extended release 12 hr (Mucinex) lisinopril 10 0.5 tablet PO DAILY 03/19/25 03/19/25 Unknown History mg-hydrochlorothiazide 12.5 mg tablet vitamin B complex 1 cap PO DAILY 03/19/25 03/19/25 Unknown History <Cammy Richards PA-C - Last Filed: 03/20/25 11:17> Allergies/Adverse Reactions: Allergies Allergy/AdvReac Type Severity Reaction Status Date / Time Penicillins Allergy Severe Difficulty Verified 03/20/25 09:57 Breathing venlafaxine (From Effexor) AdvReac Intermediate Flushing Verified 03/20/25 09:57 <Cammy Richards PA-C - Last Filed: 03/20/25 11:17> Review of Systems Review of Systems: All systems reviewed & are unremarkable except as noted in HPI and below <Cammy Richards PA-C - Last Filed: 03/20/25 11:17> PMFSH Past Medical History Medical History: Medical History Spinal stenosis Incisional hernia History of diverticulitis Asthma Sepsis HTN (hypertension) Incisional hernia, without obstruction or gangrene History of small bowel obstruction Vitamin D deficiency Tobacco abuse Postmenopausal Intermittent claudication Depression HLD (hyperlipidemia) COPD (chronic obstructive pulmonary disease) <Cammy Richards PA-C - Last Filed: 03/20/25 11:17> Surgical History Surgical History: Surgical History History of tubal ligation History of partial colectomy (~2013) <Cammy Richards PA-C - Last Filed: 03/20/25 11:17> Family History Family History: Family History Mother Patient's mother is , Onset Age: 92 <Cammy Richards PA-C - Last Filed: 03/20/25 11:17> Social History Social History: Social History Smoking packs per day: 0.5 Smoking cigarettes per day: 10.0 Years smoked: 60 Smoking pack-years: 30.00 Smoking status: Current every day smoker Tobacco type: cigarettes Second hand tobacco smoke exposure: Yes Alcohol intake: current Drinks per week: 5 Substance use: never Substance use type: does not use Do You Feel Safe in your Home?: Yes Lack of Transportation: No Lack of Food: Never True Current Housing: I Have Housing Concerned About Future Housing: No Difficulty Paying Gas/Electric Bills: No Difficulty Paying for Meds: No Currently Unemployed: No Education: Master's Degree or Higher Difficulty w/ Childcare or Family Care: No Living arrangements: alone Spiritual care concerns: No <Cammy Richards PA-C - Last Filed: 03/20/25 11:17> Exam Narrative: GENERAL: Well-appearing, well-nourished, and in no acute distress. HEAD: Normocephalic, atraumatic. EYES: PERRLA and EOMI. ENT: Nares clear, no rhinorrhea or epistaxis. Mucous membranes moist. Oropharynx without tonsillar hypertrophy exudate or other lesions. Bilateral TMs pearly morrison non-bulging NECK: Supple. No adenopathy or masses. CHEST: Clear to auscultation. No respiratory distress. No wheezes rales or rhonchi HEART: Regular rate and rhythm. No murmur heard. Normal peripheral pulses. ABDOMEN: Soft, nontender, nondistended, normal active bowel sounds. EXTREMITIES: Normal range of motion, except decreased ROM in the left hip with obvious deformity. No edema. Normal DP pulses SKIN: Warm, dry, no rash. NEURO: No focal deficits. Alert and oriented x3. CN II-XII grossly intact PSYCH: Normal mood and affect <Cammy Richards PA-C - Last Filed: 03/20/25 11:17> Course MANAGER FRAUD/PA Physician Supervision I am aware that this patient was admitted due to hip fracture. I was available for consultation while she was in the emergency department but did not personally examine her and was not directly in her care. Chart reviewed asynchronously. <Anastasia Delgadillo MD - Last Filed: 03/20/25 20:56> Consultations Consultation #1: Spoke with Dr. Velez about patient and workup who accepts admission <Cammy Richards PA-C - Last Filed: 03/20/25 11:17> Date: 03/19/25 <Cammy Richards PA-C - Last Filed: 03/20/25 11:17> Vital Signs Vital signs: Vital Signs Temperature 98.2 F 03/19/25 09:41 Pulse Rate 89 03/19/25 09:41 Respiratory Rate 16 03/19/25 09:41 Blood Pressure 150/105 H 03/19/25 09:41 Pulse Oximetry 100 03/19/25 09:41 Temperature 98.3 F 03/20/25 16:32 Pulse Rate 89 03/20/25 16:32 Respiratory Rate 18 03/20/25 16:32 Blood Pressure 130/79 03/20/25 16:32 Pulse Oximetry 100 03/20/25 16:32 Oxygen Delivery Nasal Cannula 03/20/25 14:40 Oxygen Flow Rate 3 03/20/25 14:40 <Cammy Richards PA-C - Last Filed: 03/20/25 11:17> Vital Signs Temperature 98.2 F 03/19/25 09:41 Pulse Rate 89 03/19/25 09:41 Respiratory Rate 16 03/19/25 09:41 Blood Pressure 150/105 H 03/19/25 09:41 Pulse Oximetry 100 03/19/25 09:41 Temperature 98.3 F 03/20/25 16:32 Pulse Rate 89 03/20/25 16:32 Respiratory Rate 18 03/20/25 16:32 Blood Pressure 130/79 03/20/25 16:32 Pulse Oximetry 100 03/20/25 16:32 Oxygen Delivery Nasal Cannula 03/20/25 14:40 Oxygen Flow Rate 3 03/20/25 14:40 <Anastasia Delgadillo MD - Last Filed: 03/20/25 20:56> MDM - Fall MDM Narrative Medical decision making narrative: Patient presents to the emergency department after a fall today with back pain, left hip pain. She is neurovascularly intact. CT brain, cervical spine, lumbar spine without acute findings. Chest x-ray without acute cardiopulmonary abnormality. Left hip x-ray showing displaced, comminuted intratrochanteric hip fracture. No concerning findings on blood workup. Patient will be admitted to the hospitalist for further management. Spoke with orthopedics who will consult <Cammy Richards PA-C - Last Filed: 03/20/25 11:17> Differential Diagnosis Differential diagnosis: Likely concussion without loss of consciousness and other (compression fracture, hip fracture) <Cammy Richards PA-C - Last Filed: 03/20/25 11:17> Lab Data Attestation: I reviewed the patient's lab results. <Cammy Richards PA-C - Last Filed: 03/20/25 11:17> Result diagrams: 03/20/25 05:42 03/20/25 05:42 <Cammy Richards PA-C - Last Filed: 03/20/25 11:17> Labs: Lab Results 03/19/25 Range/Units 10:14 WBC 16.7 H (4.5-10.0) K/mm3 RBC 4.68 (4.2-5.4) M/mm3 Hgb 14.4 (12.0-15.0) g/dL Hct 44.0 (37.0-47.0) % MCV 94.0 (80-100) fl MCH 30.8 (26-34) pg MCHC 32.7 (32-36) g/dl RDW 13.5 (11.5-14.5) % Plt Count 266 (150-375) k/mm3 MPV 10.1 (7.4-10.4) fl Immature Gran % (Auto) 0.7 H (0-0.5) % Neut % (Auto) 79.2 H (45.5-73.1) % Lymph % (Auto) 12.6 L (18.3-44.2) % Gregory % (Auto) 5.8 (2.6-8.5) % Eos % (Auto) 1.3 (0-4.4) % Baso % (Auto) 0.4 (0.2-1.2) % Lymph # (Auto) 2.10 (0.9-3.2) K/mm3 Gregory # (Auto) 1.0 H (0.1-0.6) K/mm3 Eos # (Auto) 0.2 (0-0.3) K/mm3 Baso # (Auto) 0.1 (0.0-0.1) K/mm3 Abs Immat Gran (auto) 0.12 H (0.00-0.031) K/mm3 Absolute Neuts (auto) 13.2 H (1.3-6.7) K/mm3 Absolute Nucleated RBC 0.000 (0.0-0.012) K/mm3 Nucleated RBC % 0.0 (0.0-0.2) % PT 13.0 (11.1-14.7) Seconds INR 1.0 APTT 35.5 (22.3-36.8) Seconds Sodium 135 L (137-145) mmol/L Potassium 4.2 (3.4-5.0) mmol/L Chloride 101 (98-107) mmol/L Carbon Dioxide 26 (22-30) mmol/L Anion Gap 8 (4-12) mmol/L BUN 16 (7-17) mg/dL Creatinine 0.76 (0.7-1.0) mg/dL Estim Creat Clear Calc 47 ml/min Estimated GFR > 60 (59 - ) Glucose 101 (65-110) mg/dL Calcium 9.8 (8.4-10.2) mg/dL Total Bilirubin 0.7 (0.2-1.3) mg/dL AST 25 (14-36) U/L ALT 20 (6-35) U/L Alkaline Phosphatase 80 (38-126) U/L Total Protein 7.1 (6.3-8.2) g/dL Albumin 4.2 (3.5-5.1) g/dL Blood Type O Positive Antibody Screen Negative <Cammy Richards PA-C - Last Filed: 03/20/25 11:17> Lab Results 03/19/25 Range/Units 10:14 WBC 16.7 H (4.5-10.0) K/mm3 RBC 4.68 (4.2-5.4) M/mm3 Hgb 14.4 (12.0-15.0) g/dL Hct 44.0 (37.0-47.0) % MCV 94.0 (80-100) fl MCH 30.8 (26-34) pg MCHC 32.7 (32-36) g/dl RDW 13.5 (11.5-14.5) % Plt Count 266 (150-375) k/mm3 MPV 10.1 (7.4-10.4) fl Immature Gran % (Auto) 0.7 H (0-0.5) % Neut % (Auto) 79.2 H (45.5-73.1) % Lymph % (Auto) 12.6 L (18.3-44.2) % Gregory % (Auto) 5.8 (2.6-8.5) % Eos % (Auto) 1.3 (0-4.4) % Baso % (Auto) 0.4 (0.2-1.2) % Lymph # (Auto) 2.10 (0.9-3.2) K/mm3 Gregory # (Auto) 1.0 H (0.1-0.6) K/mm3 Eos # (Auto) 0.2 (0-0.3) K/mm3 Baso # (Auto) 0.1 (0.0-0.1) K/mm3 Abs Immat Gran (auto) 0.12 H (0.00-0.031) K/mm3 Absolute Neuts (auto) 13.2 H (1.3-6.7) K/mm3 Absolute Nucleated RBC 0.000 (0.0-0.012) K/mm3 Nucleated RBC % 0.0 (0.0-0.2) % PT 13.0 (11.1-14.7) Seconds INR 1.0 APTT 35.5 (22.3-36.8) Seconds Sodium 135 L (137-145) mmol/L Potassium 4.2 (3.4-5.0) mmol/L Chloride 101 (98-107) mmol/L Carbon Dioxide 26 (22-30) mmol/L Anion Gap 8 (4-12) mmol/L BUN 16 (7-17) mg/dL Creatinine 0.76 (0.7-1.0) mg/dL Estim Creat Clear Calc 47 ml/min Estimated GFR > 60 (59 - ) Glucose 101 (65-110) mg/dL Calcium 9.8 (8.4-10.2) mg/dL Total Bilirubin 0.7 (0.2-1.3) mg/dL AST 25 (14-36) U/L ALT 20 (6-35) U/L Alkaline Phosphatase 80 (38-126) U/L Total Protein 7.1 (6.3-8.2) g/dL Albumin 4.2 (3.5-5.1) g/dL Blood Type O Positive Antibody Screen Negative <Anastasia Delgadillo MD - Last Filed: 03/20/25 20:56> Imaging Data Radiologist's impression: ITS Impressions Head CT 03/19/25 10:34 IMPRESSION: No acute brain findings. No significant abnormality is seen. All CT scans at this facility are performed using low dose modulation techniques as appropriate to perform exam including the following: automated exposure control; use of iterative reconstruction technique; adjustment of the mA and/or kV according to patient size (this includes techniques or standardized protocols for targeted exams where dose is matched to indication/reason for exam). Cervical Spine CT 03/19/25 10:38 IMPRESSION: 1. No acute findings. Hip/Pelvis X-Ray 03/19/25 10:44 Impression: Fractures detailed above Chest X-Ray 03/19/25 10:48 IMPRESSION: 1. No acute cardiopulmonary findings given portable technique. Lumbar Spine CT 03/19/25 10:50 IMPRESSION: 1. Mild S-shaped scoliosis of the lumbar and lower thoracic spine with mild to moderate spondylosis. No acute osseous abnormality. <Cammy Richards PA-C - Last Filed: 03/20/25 11:17> ECG Data EKG #1: ECG completion date: 03/19/25 <Cammy Richards PA-C - Last Filed: 03/20/25 11:17> EKG Interpretation: normal rate, sinus rhythm, no ST changes and normal QT <Cammy Richards PA-C - Last Filed: 03/20/25 11:17> Critical Care Time Critical Care Time Critical Care Time: No <Cammy Richards PA-C - Last Filed: 03/20/25 11:17> Discharge Plan Discharge Clinical Impression: Closed intertrochanteric fracture of left hip Qualifiers: Encounter type: initial encounter Fracture alignment: displaced Qualified Code(s): S72.142A - Displaced intertrochanteric fracture of left femur, initial encounter for closed fracture Fall Qualifiers: Encounter type: initial encounter Qualified Code(s): W19.XXXA - Unspecified fall, initial encounter <Cammy Richards PA-C - Last Filed: 03/20/25 11:17> Patient Disposition: Still a Patient <Cammy Richards PA-C - Last Filed: 03/20/25 11:17> Condition: Stable <Cammy Richards PA-C - Last Filed: 03/20/25 11:17>
[2025-03-19] MEDS: ONDANSETRON INJ 4 MG/2 ML VIAL IV PUSH ×2 (09:56→23:33)
[2025-03-19] MEDS: MORPHINE SULFATE (*CRX) 4 MG/ML INJ IV PUSH (09:57)
[2025-03-19 10:21] LABS: Hematocrit 44.0 % (37.0-47.0); Hemoglobin 14.4 g/dL (12.0-15.0); Immature Granulocyte Percent A 0.7 % (0-0.5); Lymphocytes Absolute Auto 2.10 K/mm3 (0.9-3.2); Mean Corpuscular HGB Conc 32.7 g/dl (32-36); Mean Corpuscular Hemoglobin 30.8 pg (26-34); Mean Corpuscular Volume 94.0 fl (80-100); Nucleated Red Blood Cells Absolute Auto 0.000 K/mm3 (0.0-0.012); Nucleated Red Blood Cells Perc 0.0 % (0.0-0.2); Platelet Count Result 266 k/mm3 (150-375); Red Blood Count 4.68 M/mm3 (4.2-5.4); White Blood Count 16.7 K/mm3 (4.5-10.0)
[2025-03-19 10:31] LABS: Alanine Aminotransferase 20 U/L (6-35); Albumin Level 4.2 g/dL (3.5-5.1); Alkaline Phosphatase 80 U/L (38-126); Anion Gap 8 mmol/L (4-12); Aspartate Amino Transferase 25 U/L (14-36); Bilirubin,Total 0.7 mg/dL (0.2-1.3); Blood Urea Nitrogen 16 mg/dL (7-17); Calcium 9.8 mg/dL (8.4-10.2); Carbon Dioxide 26 mmol/L (22-30); Chloride 101 mmol/L (98-107); Estimated CRCL calculation 47 ml/min; Estimated Glomerular Filt Rate > 60; Glucose 101 mg/dL (65-110); Potassium 4.2 mmol/L (3.4-5.0); Sodium 135 mmol/L (137-145); Total Protein 7.1 g/dL (6.3-8.2)
[2025-03-19 10:33] LABS: INR 1.0; Prothrombin Time 13.0 Seconds (11.1-14.7)
[2025-03-19 10:34] LABS: Partial Thromboplastin Time 35.5 Seconds (22.3-36.8)
[2025-03-19] MEDS: HYDROmorphone HCL INJ (*CRX) 1 MG/ML SYR 0.5 MG IV PUSH ×2 (11:32→12:40)
--- NOTE | 2025-03-19 13:18 | PC.NURSE ---
pt was given 0.5mg of Dilaudid IV at 1240 during down time per verbal order by ARACELIS Richards
--- NOTE | 2025-03-19 13:25 | PM.IMHP ---
H&P: HPI History of Present Illness Date/Time: 03/19/25 13:25 Chief Complaint: Fall Narrative: 85 y/o F with PMH of hypertension, SBO, asthma, vitamin-D deficiency, hyperlipidemia, depression, and COPD presents here with left hip pain due to a ground level fall. The patient presents here from home via EMS for left hip pain following a ground level fall. The patient reports a mechanical fall he after she was going down the steps and missed the last step causing her to fall backwards onto her buttocks. She denies head strike or loss of consciousness. After the fall she had pain to her left hip and low back. She was unable to ambulate. Upon arrival to the ER she was noted have a shortened and rotated left lower extremity. She denies any other injury or neck pain. She is not currently on anticoagulation. At baseline it she intermittently uses an assistive device. Will use a cane when she is leaving the house for long periods or she has to go long distances. Initial VS at presentation: 98.2? F, HR 89, RR 16, 150/105, and 100% on 2 L nasal cannula. ED workup showed: WBC 16.7, no anemia, normal coags, sodium 135, creatinine 0.76 and GFR >60. Head CT showed no acute findings and no significant abnormality seen. C-spine CT showed no acute findings. Hip/pelvic XR showed a displaced comminuted left intertrochanteric fracture. CXR showed no acute cardiopulmonary findings. L-spine CT showed mild S shaped scoliosis in the lumbar and lower thoracic spine with [id number] spondylosis, no acute osseous abnormality. EKG showed sinus rhythm, rate 90. Review of Systems Review of Systems: All systems reviewed & are unremarkable except as noted in HPI and below [facility] Past Medical History Medical History Spinal stenosis Incisional hernia History of diverticulitis Asthma Sepsis HTN (hypertension) Incisional hernia, without obstruction or gangrene History of small bowel obstruction Vitamin D deficiency Tobacco abuse Postmenopausal Intermittent claudication Depression HLD (hyperlipidemia) COPD (chronic obstructive pulmonary disease) Surgical History Surgical History History of tubal ligation History of partial colectomy (~2013) Family History Family History Mother Patient's mother is , Onset Age: 92 Social History Social History Smoking packs per day: 0.5 Smoking cigarettes per day: 10.0 Years smoked: 60 Smoking pack-years: 30.00 Smoking status: Current every day smoker Tobacco type: cigarettes Second hand tobacco smoke exposure: Yes Alcohol intake: current Drinks per week: 5 Substance use: never Substance use type: does not use Do You Feel Safe in your Home?: Yes Lack of Transportation: No Lack of Food: Never True Current Housing: I Have Housing Concerned About Future Housing: No Difficulty Paying Gas/Electric Bills: No Difficulty Paying for Meds: No Currently Unemployed: No Education: Master's Degree or Higher Difficulty w/ Childcare or Family Care: No Living arrangements: alone Spiritual care concerns: No Meds Home Medications and Allergies Home Medications ?Medication ?Instructions ?Recorded ?Confirmed ?Type omega-3 fatty acids-fish oil 360 1 cap PO DAILY #90 caps 05/18/20 03/19/25 Rx mg-1,200 mg capsule (Fish Oil) albuterol sulfate 90 mcg/actuation See Rx Instructions .Route 06/20/23 03/19/25 Rx aerosol inhaler .COMPLEX #8.5 ea montelukast 10 mg tablet See Rx Instructions .Route 09/16/24 03/19/25 Rx .COMPLEX #90 tabs cholecalciferol (vitamin D3) 25 25 mcg PO DAILY 01/21/25 03/19/25 History mcg (1,000 unit) capsule (Vitamin D3) ibuprofen 200 mg tablet (Advil) 400 mg PO Q6H PRN pain 01/21/25 03/19/25 History escitalopram oxalate 20 mg tablet 20 mg PO DAILY 03/19/25 03/19/25 History fluticasone 250 mcg-salmeterol 50 1 inh inhalation Q12H 03/19/25 03/19/25 History mcg/dose blistr powdr for inhalation lisinopril 10 0.5 tablet PO DAILY 03/19/25 03/19/25 History mg-hydrochlorothiazide 12.5 mg tablet vitamin B complex 1 cap PO DAILY 03/19/25 03/19/25 History Allergies Allergy/AdvReac Type Severity Reaction Status Date / Time Penicillins Allergy Severe Difficulty Verified 03/19/25 15:05 Breathing venlafaxine (From Effexor) AdvReac Intermediate Flushing Verified 03/19/25 15:05 Vital Signs Vital Signs - 24 hr 03/19/25 09:41 03/19/25 10:01 03/19/25 10:14 Temperature 98.2 F Pulse Rate 89 97 98 Respiratory Rate 16 16 13 Blood Pressure 150/105 H 148/84 H 148/84 H Pulse Oximetry 100 95 96 Oxygen Delivery Oxygen Flow Rate 03/19/25 10:16 03/19/25 11:16 03/19/25 13:21 Temperature Pulse Rate 99 103 H Respiratory Rate 14 19 Blood Pressure 116/91 H 118/90 Pulse Oximetry 95 94 98 Oxygen Delivery Nasal Cannula Oxygen Flow Rate 2 03/19/25 13:22 Temperature Pulse Rate 117 H Respiratory Rate 16 Blood Pressure 104/80 Pulse Oximetry 97 Oxygen Delivery Oxygen Flow Rate Exam Const: General: no acute distress Other: , female, elderly, uncomfortable secondary to hip pain HENMT: Face/Nose/Sinus: Normal nares present Mouth: Yes moist mucous membranes Eyes: General: appearance normal, both eyes and all related structures Sclera: sclerae normal Pupils: Equal, round and reactive pupils present EOM: EOMs intact bilaterally Resp: Effort & Inspection: normal respiratory effort Auscultation: clear to auscultation bilaterally Cardio: Rate: regular rate Rhythm: regular rhythm Other: S1-S2 present without murmur, rub, ectopy GI: Other: Abdomen soft. Hernia noted to the right mid quadrant, chronic for patient. Normoactive bowel sounds in all quadrants. No tenderness on exam. Skin: General skin exam: normal color and no rashes or lesions noted Wounds: no wounds Neuro: Speech: normal speech Motor exam (neuro): 5/5 motor strength present throughout Sensory Exam: normal sensation Other: A&O x4 Extrem: Other: No peripheral edema. Extremities warm and dry. DP 2+ in the right lower extremity and 1+ in the left lower extremity. Psych: Mental Status: mental status grossly normal Affect: normal affect Other: Good insight and judgment, pleasant H&P: Results Labs Labs: Short CBC 03/19/25 Range/Units 10:14 WBC 16.7 H (4.5-10.0) K/mm3 Hgb 14.4 (12.0-15.0) g/dL Hct 44.0 (37.0-47.0) % Plt Count 266 (150-375) k/mm3 BMP 03/19/25 10:14 Sodium 135 L Potassium 4.2 Chloride 101 Carbon Dioxide 26 BUN 16 Creatinine 0.76 Glucose 101 Calcium 9.8 Liver Function 03/19/25 Range/Units 10:14 Total Bilirubin 0.7 (0.2-1.3) mg/dL AST 25 (14-36) U/L ALT 20 (6-35) U/L Alkaline Phosphatase 80 (38-126) U/L Albumin 4.2 (3.5-5.1) g/dL Assessment and Plan Assessment and plan (1) Displaced intertrochanteric fracture of left femur: Qualifiers: Encounter type: initial encounter Fracture type: closed Qualified Code(s): S72.142A - Displaced intertrochanteric fracture of left femur, initial encounter for closed fracture Code(s): S72.142A - Displaced intertrochanteric fracture of left femur, initial encounter for closed fracture Status: Acute Assessment and Plan: Patient sustained a mechanical ground level fall due to a missed that point. Reported left hip pain and low back pain post fall. Unable to ambulate. Trauma workup included a head CT, C-spine CT, hip/pelvic XR, CXR, and lumbar spine CT. Imaging significant for a displaced comminuted left intertrochanteric fracture, no other acute findings. Patient admitted for surgical management of her intratrochanteric fracture. - orthopedics consulted >> see note, plan for left hip trochanteric nail - NPO midnight in case of OR availability tomorrow, 03/20 - analgesics p.r.n.: Tylenol, [place], morphine - bowel regimen p.r.n.: Doculax p.r.n., MiraLax p.r.n. - antiemetic p.r.n. - check UA, monitor CBC and BMP preop - SCDs - encourage IS - will need PT/OT postop (2) HTN (hypertension): Qualifiers: Hypertension type: primary hypertension Qualified Code(s): I10 - Essential (primary) hypertension Code(s): I10 - Essential (primary) hypertension Status: Chronic Assessment and Plan: - chronic, currently 104/80, stable - hold home medication(s) due to impending surgery, hydralazine p.r.n. ordered for BP greater than 180/90 - monitor (3) COPD (chronic obstructive pulmonary disease): Qualifiers: COPD type: unspecified COPD Qualified Code(s): J44.9 - Chronic obstructive pulmonary disease, unspecified Code(s): J44.9 - Chronic obstructive pulmonary disease, unspecified Status: Chronic Assessment and Plan: No current evidence of exacerbation on exam. - continue albuterol p.r.n. and fluticasone-salmeterol b.i.d. Plan Diet: Heart healthy, NPO midnight GI Prophylaxis: N/a DVT Prophylaxis: SCDs IV fluids: None Lines/Tubes: Peripheral IV Code Status: Full code Quality VTE Prophylaxis VTE prophylaxis: mechanical ordered Hospitalist MIPS Advance Care Plan I have confirmed that the patient's Advanced Care Plan is present, code status is documented, or surrogate decision maker is listed in patient medical record.: Yes Medication Reconciliation I have utilized all available resources to obtain, update and review the patients current medications (includes all prescriptions, OTC, herbals, cannabis, and nutritional supplements).: Yes
--- NOTE | 2025-03-19 13:55 | PC.NURSE ---
This patient, Mitzy Amos, was admitted to [facility] Surg Room 316-02 at 1355. Patient/family oriented to hospital policies and general routines including ID bracelet, bed and alarms, visiting hours, pain management, procedures, bathroom and other care routines, personal items, smoking policy, room service/diet, and visiting hours. Information on how to activate the Rapid Response Team has been discussed. Patient/Family are encouraged to report perceived risks to care and to ask questions if they do not understand what they are told or what they should do.
--- NOTE | 2025-03-19 14:12 | PM.CNOR ---
Assessment and Plan Assessment and plan (1) Displaced intertrochanteric fracture of left femur: Qualifiers: Encounter type: initial encounter Fracture type: closed Qualified Code(s): S72.142A - Displaced intertrochanteric fracture of left femur, initial encounter for closed fracture Code(s): S72.142A - Displaced intertrochanteric fracture of left femur, initial encounter for closed fracture Status: Acute Assessment and Plan: New patient evaluation for chief complaint fall with left hip injury. History, physical exam and radiographs reviewed with the patient. Left hip fracture. Discussed the condition, nature, etiology and course of natural history with the patient. Treatment options including surgical and nonoperative treatment were reviewed. Risks and benefits of each as well as alternatives reviewed. The patient's questions were answered. Conservative treatment ice, Pain control, SCDs. patient desires operative treatment Plan Discussed nonoperative and operative treatment options with the patient. Risks and benefits of each as well as alternatives were reviewed. All of the patient's questions were answered. The risks of surgery reviewed including but not limited to: Neurovascular damage, wound complication, infection, blood clot, pulmonary embolus, stroke, myocardial infarction, and anesthetic risks up to and including . Continued pain and possible dysfunction were explained. Specific risks of the procedure including later recurrence of deformity. No guarantees were offered. If hardware used, discussed risk of failure/ breakage and possible need for removal. If complications occur, the patient understands the need for further treatment, possible further surgery. Patient verbalizes understanding and wishes to proceed. PLAN: left hip trochanteric nail History of Present Illness HPI Consult date: 03/20/25 Requesting physician: Cammy Richards PA-C Chief complaint: Left Intertrochanteric Hip Fracture Narrative: 85-year-old womanLives alone at home, lost her balance and fell injuring her left hip. Left hip fracture, admitted through the emergency room. Complains of left hip and leg pain. Denies loss of consciousness. Previous ambulator, independent. has a cane to use for ambulation but rarely uses it. Has not had any History of falls or injury prior. Review of Systems Constitutional: Constitutional: Denies fever(s) Eyes: Eyes: Denies blurry vision ENT: Reports Normal hearing present Cardiovascular: Cardiovascular: Denies chest pain and Denies dyspnea Respiratory: Respiratory: Denies dyspnea and Denies wheezing Gastrointestinal: Gastrointestinal: Denies abdominal pain Genitourinary: Genitourinary: Denies urinary urgency Musculoskeletal: Musculoskeletal: Reports as per HPI and Denies numbness Integumentary/Breasts: Skin/Breast: Denies changing lesions and Denies sores Neurologic: Reports Normal hearing present, Denies behavioral changes, Denies confusion, Denies numbness and Denies convulsions Psychiatric: Psychiatric: Denies behavioral changes, Denies confusion and Denies hallucinations Endocrine: Endocrine: Denies heat intolerance Hematologic/Lymphatic: Hematologic/Lymphatic: Denies easy bleeding Allergic/Immunologic: Allergic/Immunologic: Denies wheezing PMFSH Past Medical History Medical History Spinal stenosis Incisional hernia History of diverticulitis Asthma Sepsis HTN (hypertension) Incisional hernia, without obstruction or gangrene History of small bowel obstruction Vitamin D deficiency Tobacco abuse Postmenopausal Intermittent claudication Depression HLD (hyperlipidemia) COPD (chronic obstructive pulmonary disease) Surgical History Surgical History History of tubal ligation History of partial colectomy (~2013) Family History Family History Mother Patient's mother is , Onset Age: 92 Social History Social History Smoking packs per day: 0.5 Smoking cigarettes per day: 10.0 Years smoked: 60 Smoking pack-years: 30.00 Smoking status: Current every day smoker Tobacco type: cigarettes Second hand tobacco smoke exposure: Yes Alcohol intake: current Drinks per week: 5 Substance use: never Substance use type: does not use Do You Feel Safe in your Home?: Yes Lack of Transportation: No Lack of Food: Never True Current Housing: I Have Housing Concerned About Future Housing: No Difficulty Paying Gas/Electric Bills: No Difficulty Paying for Meds: No Currently Unemployed: No Education: Master's Degree or Higher Difficulty w/ Childcare or Family Care: No Living arrangements: alone Spiritual care concerns: No Meds Home Medications and Allergies Home Medications ?Medication ?Instructions ?Recorded ?Confirmed ?Type omega-3 fatty acids-fish oil 360 1 cap PO DAILY #90 caps 05/18/20 03/19/25 Rx mg-1,200 mg capsule (Fish Oil) albuterol sulfate 90 mcg/actuation See Rx Instructions .Route 06/20/23 03/19/25 Rx aerosol inhaler .COMPLEX #8.5 ea montelukast 10 mg tablet See Rx Instructions .Route 09/16/24 03/19/25 Rx .COMPLEX #90 tabs cholecalciferol (vitamin D3) 25 25 mcg PO DAILY 01/21/25 03/19/25 History mcg (1,000 unit) capsule (Vitamin D3) ibuprofen 200 mg tablet (Advil) 400 mg PO Q6H PRN pain 01/21/25 03/19/25 History benzonatate 100 mg capsule 100 mg PO TID PRN cough 03/19/25 03/19/25 History escitalopram oxalate 20 mg tablet 20 mg PO DAILY 03/19/25 03/19/25 History fluticasone 250 mcg-salmeterol 50 1 inh inhalation Q12H 03/19/25 03/19/25 History mcg/dose blistr powdr for inhalation guaifenesin 600 mg tablet, 600 mg PO Q12H PRN cough 03/19/25 03/19/25 History extended release 12 hr (Mucinex) lisinopril 10 0.5 tablet PO DAILY 03/19/25 03/19/25 History mg-hydrochlorothiazide 12.5 mg tablet vitamin B complex 1 cap PO DAILY 03/19/25 03/19/25 History Allergies Allergy/AdvReac Type Severity Reaction Status Date / Time Penicillins Allergy Severe Difficulty Verified 03/20/25 09:57 Breathing venlafaxine (From Effexor) AdvReac Intermediate Flushing Verified 03/20/25 09:57 Vital Signs Vital Signs - 24 hr 03/19/25 09:41 03/19/25 10:01 03/19/25 10:14 Temperature 98.2 F Pulse Rate 89 97 98 Respiratory Rate 16 16 13 Blood Pressure 150/105 H 148/84 H 148/84 H Pulse Oximetry 100 95 96 Oxygen Delivery Oxygen Flow Rate 03/19/25 10:16 03/19/25 11:16 03/19/25 13:21 Temperature Pulse Rate 99 103 H Respiratory Rate 14 19 Blood Pressure 116/91 H 118/90 Pulse Oximetry 95 94 98 Oxygen Delivery Nasal Cannula Oxygen Flow Rate 2 03/19/25 13:22 Temperature Pulse Rate 117 H Respiratory Rate 16 Blood Pressure 104/80 Pulse Oximetry 97 Oxygen Delivery Oxygen Flow Rate Exam Const: General: No confusion Orientation/consciousness: No confusion HENMT: Head: normal to inspection, normocephalic and atraumatic Eyes: Conjunctivae: conjunctivae normal Sclera: sclerae normal Neck: Neck: supple and nontender Chest: Chest palpation & inspection: normal inspection of the chest Resp: Effort & Inspection: normal respiratory effort and no audible wheezes Cardio: Rate: regular rate Rhythm: regular rhythm : General: Yes deferred Skin: General skin exam: no rashes or lesions noted Neuro: General: No confusion Extrem: General: capillary refill normal Right upper extremity: normal to inspection Left upper extremity: normal to inspection Right lower extremity: normal to inspection, hip/thigh Details: normal to inspection and normal ROM; no tenderness and no swelling, knee Details: no tenderness and no swelling, ankle Details: normal ROM (Able to flex and extend the ankle) and foot Details: vascular exam Details: dorsalis pedis pulse present and normal capillary refill, tendon exam (Moves all toes) and motor-sensory exam Details: light-touch normal Location: in all toes Left lower extremity: hip/thigh Details: tenderness Location: of the hip Location: laterally and anteriorly, swelling Location: of the hip and abnormal ROM Details: pain with passive ROM (Full motion deferred secondary to fracture) Details: with flexion, with internal rotation and with external rotation, ankle (no calf tenderness) Details: normal ROM (Able to flex/ extend ankle) and foot Details: toes with normal ROM (Moves all toes), vascular exam Details: dorsalis pedis pulse present and normal capillary refill and motor-sensory exam light-touch normal in all toes; no tenderness Psych: Affect: normal affect Results Labs 03/20/25 05:42 03/20/25 05:42 Labs: Abnormal lab results 03/19/25 Range/Units 10:14 WBC 16.7 H (4.5-10.0) K/mm3 Immature Gran % (Auto) 0.7 H (0-0.5) % Neut % (Auto) 79.2 H (45.5-73.1) % Lymph % (Auto) 12.6 L (18.3-44.2) % [place] # (Auto) 1.0 H (0.1-0.6) K/mm3 Abs Immat Gran (auto) 0.12 H (0.00-0.031) K/mm3 Absolute Neuts (auto) 13.2 H (1.3-6.7) K/mm3 Sodium 135 L (137-145) mmol/L H & H 03/19/25 Range/Units 10:14 Hgb 14.4 (12.0-15.0) g/dL Hct 44.0 (37.0-47.0) % Coagulation 03/19/25 Range/Units 10:14 INR 1.0 All other labs normal. Diagnostic results Hip x-ray: image reviewed ( Left hip radiographs show comminuted angulated intertrochanteric fracture)
[2025-03-19] MEDS: MORPHINE SULFATE (*CRX) 4 MG/ML INJ 2 MG IV PUSH ×2 (14:54→19:56)
[2025-03-19] MEDS: HYDROcodone/acetaminophen (*CRX) 5-325 MG TABLET 1 TAB PO (22:08)
[2025-03-20] VITALS (16 sets, daily range): BP systolic 112–155; BP diastolic 66–83; PULSE 72–112; RESP 14–22; TEMP 35.8–37.1; O2SAT 93–100
[2025-03-20] MEDS: SODIUM CHLORIDE 0.9% IV 1,000 ML 50 ML IV CONT (00:27)
[2025-03-20] MEDS: MORPHINE SULFATE (*CRX) 4 MG/ML INJ 2 MG IV PUSH ×2 (01:37→05:08)
[2025-03-20] MEDS: ONDANSETRON INJ 4 MG/2 ML VIAL IV PUSH (04:48)
[2025-03-20 06:01] LABS: Hematocrit 39.2 % (37.0-47.0); Hemoglobin 12.7 g/dL (12.0-15.0); Immature Granulocyte Percent A 0.8 % (0-0.5); Lymphocytes Absolute Auto 1.14 K/mm3 (0.9-3.2); Mean Corpuscular HGB Conc 32.4 g/dl (32-36); Mean Corpuscular Hemoglobin 30.9 pg (26-34); Mean Corpuscular Volume 95.4 fl (80-100); Nucleated Red Blood Cells Absolute Auto 0.000 K/mm3 (0.0-0.012); Nucleated Red Blood Cells Perc 0.0 % (0.0-0.2); Platelet Count Result 259 k/mm3 (150-375); Red Blood Count 4.11 M/mm3 (4.2-5.4); White Blood Count 11.3 K/mm3 (4.5-10.0)
[2025-03-20 06:29] LABS: Anion Gap 9 mmol/L (4-12); Blood Urea Nitrogen 34 mg/dL (7-17); Calcium 9.3 mg/dL (8.4-10.2); Carbon Dioxide 25 mmol/L (22-30); Chloride 97 mmol/L (98-107); Estimated CRCL calculation 25 ml/min; Estimated Glomerular Filt Rate 33; Glucose 126 mg/dL (65-110); Potassium 4.7 mmol/L (3.4-5.0); Sodium 131 mmol/L (137-145)
--- NOTE | 2025-03-20 07:51 | P.PNIM_ITS ---
Progress Note: A&P Assessment and Plan (1) Displaced intertrochanteric fracture of left femur: Qualifiers: Encounter type: initial encounter Fracture type: closed Qualified Code(s): S72.142A - Displaced intertrochanteric fracture of left femur, initial encounter for closed fracture Code(s): S72.142A - Displaced intertrochanteric fracture of left femur, initial encounter for closed fracture Status: Acute Assessment and Plan: Patient sustained a mechanical ground level fall due to a missed that point. Reported left hip pain and low back pain post fall. Unable to ambulate. Trauma workup included a head CT, C-spine CT, hip/pelvic XR, CXR, and lumbar spine CT. Imaging significant for a displaced comminuted left intertrochanteric fracture, no other acute findings. Patient admitted for surgical management of her intratrochanteric fracture. * analgesics p.r.n.: Tylenol, [place], morphine * bowel regimen p.r.n.: Doculax p.r.n., MiraLax p.r.n. * antiemetic p.r.n. * check UA, monitor CBC and BMP preop * SCDs * encourage IS * will need PT/OT postop * orthopedics consulted >> see note, plan for left hip trochanteric nail * NPO * L Hip Intertrochanteric Nail @ 1030 today * PT/OT evals to follow (2) HTN (hypertension): Qualifiers: Hypertension type: primary hypertension Qualified Code(s): I10 - Essential (primary) hypertension Code(s): I10 - Essential (primary) hypertension Status: Chronic Assessment and Plan: * chronic, currently 104/80, stable * hold home medication(s) due to impending surgery, hydralazine p.r.n. ordered for BP greater than 180/90 * monitor (3) COPD (chronic obstructive pulmonary disease): Qualifiers: COPD type: unspecified COPD Qualified Code(s): J44.9 - Chronic obstructive pulmonary disease, unspecified Code(s): J44.9 - Chronic obstructive pulmonary disease, unspecified Status: Chronic Assessment and Plan: No current evidence of exacerbation on exam. * continue albuterol p.r.n. and fluticasone-salmeterol b.i.d. (4) ANDRES (acute kidney injury): Code(s): N17.9 - Acute kidney failure, unspecified Status: Acute Assessment and Plan: * Creatinine: 0.76 -> 1.49 , BUN: 16 -> 34 * IV Fluids: NS @ 100 mls/hr * Trend renal function * Trend electrolytes, correct as needed Plan Diet: Heart healthy, NPO midnight GI Prophylaxis: N/a DVT Prophylaxis: SCDs IV fluids: NS @ 100 mls/hr Lines/Tubes: Peripheral IV Code Status: Full code Subjective Date/time seen: 03/20/25 07:51 Interval history: 85 y/o F with PMH of hypertension, SBO, asthma, vitamin-D deficiency, hyperlipidemia, depression, and COPD presents here with left hip pain due to a ground level fall. 03/20/2025 Patient resting uncomfortably in bed at time of exam. Endorsing continued hip pain. Denies any CP, SOB, n/v or abd pain. Plan is for L hip intertrochanteric nail fixation today @ 1030. Plan for PT/OT evals after procedure. Kidney function worsened, Cr increased from 0.76 -> 1.49. Will give fluids upon return from procedure and will monitor kidney function in the coming days. Review of Systems Review of Systems: All systems reviewed & are unremarkable except as noted in HPI and below Exam Const: General: no acute distress Other: , female, elderly, uncomfortable secondary to hip pain HENMT: Face/Nose/Sinus: Normal nares present Mouth: Yes moist mucous membranes Eyes: General: appearance normal, both eyes and all related structures Sclera: sclerae normal Pupils: Equal, round and reactive pupils present EOM: EOMs intact bilaterally Resp: Effort & Inspection: normal respiratory effort Auscultation: clear to auscultation bilaterally Cardio: Rate: regular rate Rhythm: regular rhythm Other: S1-S2 present without murmur, rub, ectopy GI: Other: Abdomen soft. Hernia noted to the right mid quadrant, chronic for patient. Normoactive bowel sounds in all quadrants. No tenderness on exam. Skin: General skin exam: normal color and no rashes or lesions noted Wounds: no wounds Neuro: Cranial nerves: Yes Equal, round and reactive pupils present Speech: normal speech Motor exam (neuro): 5/5 motor strength present throughout Sensory Exam: normal sensation Other: A&O x4 Extrem: Other: No peripheral edema. Extremities warm and dry. DP 2+ in the right lower extremity and 1+ in the left lower extremity. Psych: Mental Status: mental status grossly normal Affect: normal affect Other: Good insight and judgment, pleasant Objective Data Vital Signs Vital Signs: Vital Signs - 24 hr 03/19/25 09:41 03/19/25 10:01 03/19/25 10:14 Temperature 98.2 F Pulse Rate 89 97 98 Respiratory Rate 16 16 13 Blood Pressure 150/105 H 148/84 H 148/84 H Pulse Oximetry 100 95 96 Oxygen Delivery Oxygen Flow Rate 03/19/25 10:16 03/19/25 11:16 03/19/25 13:21 Temperature Pulse Rate 99 103 H Respiratory Rate 14 19 Blood Pressure 116/91 H 118/90 Pulse Oximetry 95 94 98 Oxygen Delivery Nasal Cannula Oxygen Flow Rate 2 03/19/25 13:22 03/19/25 14:00 03/19/25 14:00 Temperature 96.4 F L Pulse Rate 117 H 106 H Respiratory Rate 16 18 Blood Pressure 104/80 106/75 Pulse Oximetry 97 94 94 Oxygen Delivery Nasal Cannula Oxygen Flow Rate 2 03/19/25 17:05 03/19/25 22:00 03/19/25 23:00 Temperature 98.1 F Pulse Rate 110 H 106 H Respiratory Rate 18 Blood Pressure 100/87 Pulse Oximetry 94 96 95 Oxygen Delivery Nasal Cannula Nasal Cannula Oxygen Flow Rate 2 2 03/20/25 06:00 Temperature 97.1 F L Pulse Rate 91 Respiratory Rate 20 Blood Pressure 128/78 Pulse Oximetry 93 Oxygen Delivery Oxygen Flow Rate Intake/Output Intake/Output: Intake & Output 03/17/25 03/18/25 03/19/25 03/20/25 23:59 23:59 23:59 23:59 Intake Total 240 0 Output Total 0 Balance 240 0 Meds/Results Medications: Active Medications Generic Name Dose Route Start Last Admin Trade Name Freq PRN Reason Stop Dose Admin Acetaminophen 650 mg 03/19/25 13:31 Acetaminophen 325 Mg Tablet PO Q4H PRN Mild Pain (1-3) or Fever Hydrocodone Bitart/Acetaminophen 1 tab 03/19/25 13:31 03/19/25 22:08 Hydrocodone/Acetaminophen (*Crx) 5-325 Mg Tablet PO 1 tab Q4H PRN Administration Moderate Pain (4-6) Bisacodyl 5 mg 03/19/25 13:31 Bisacodyl 5 Mg Tablet Ec PO DAILY PRN Constipation Hydralazine HCl 10 mg 03/19/25 13:50 Hydralazine Hcl 20 Mg/Ml Vial IV PUSH Q8H PRN Blood Pressure - High, >180/90 Sodium Chloride 1,000 mls @ 50 mls/hr 03/20/25 00:25 03/20/25 00:27 Normal Saline Iv IV CONT 50 mls/hr .Q20H FANG Administration Morphine Sulfate 2 mg 03/19/25 13:31 03/20/25 05:08 Morphine Sulfate (*Crx) 4 Mg/Ml Inj IV PUSH 2 mg Q4H PRN Administration Pain Rated 7-10 Ondansetron HCl 4 mg 03/19/25 13:31 03/20/25 04:48 Ondansetron Inj 4 Mg/2 Ml Vial IV PUSH 4 mg Q6H PRN Administration Nausea And Vomiting Polyethylene Glycol 17 gm 03/19/25 13:31 Polyethylene Glycol 3350 17 Gm Powd.Pack PO QAM PRN Constipation Radiology Results: ITS Impressions Head CT 03/19/25 10:34 IMPRESSION: No acute brain findings. No significant abnormality is seen. All CT scans at this facility are performed using low dose modulation techniques as appropriate to perform exam including the following: automated exposure control; use of iterative reconstruction technique; adjustment of the mA and/or kV according to patient size (this includes techniques or standardized protocols for targeted exams where dose is matched to indication/reason for exam). Cervical Spine CT 03/19/25 10:38 IMPRESSION: 1. No acute findings. Hip/Pelvis X-Ray 03/19/25 10:44 Impression: Fractures detailed above Chest X-Ray 03/19/25 10:48 IMPRESSION: 1. No acute cardiopulmonary findings given portable technique. Lumbar Spine CT 03/19/25 10:50 IMPRESSION: 1. Mild S-shaped scoliosis of the lumbar and lower thoracic spine with mild to moderate spondylosis. No acute osseous abnormality. Labs Labs: Laboratory Results - last 24 hr 03/19/25 03/20/25 10:14 05:42 WBC 16.7 H 11.3 H RBC 4.68 4.11 L Hgb 14.4 12.7 Hct 44.0 39.2 MCV 94.0 95.4 MCH 30.8 30.9 MCHC 32.7 32.4 RDW 13.5 13.6 Plt Count 266 259 MPV 10.1 10.3 Immature Gran % (Auto) 0.7 H 0.8 H Neut % (Auto) 79.2 H 77.9 H Lymph % (Auto) 12.6 L 10.1 L [place] % (Auto) 5.8 10.9 H Eos % (Auto) 1.3 0.0 Baso % (Auto) 0.4 0.3 Lymph # (Auto) 2.10 1.14 [place] # (Auto) 1.0 H 1.2 H Eos # (Auto) 0.2 0.0 Baso # (Auto) 0.1 0.0 Abs Immat Gran (auto) 0.12 H 0.09 H Absolute Neuts (auto) 13.2 H 8.8 H Absolute Nucleated RBC 0.000 0.000 Nucleated RBC % 0.0 0.0 PT 13.0 INR 1.0 APTT 35.5 Sodium 135 L 131 L Potassium 4.2 4.7 Chloride 101 97 L Carbon Dioxide 26 25 Anion Gap 8 9 BUN 16 34 H D Creatinine 0.76 1.49 H Estim Creat Clear Calc 47 25 Estimated GFR > 60 33 L Glucose 101 126 H Calcium 9.8 9.3 Total Bilirubin 0.7 AST 25 ALT 20 Alkaline Phosphatase 80 Total Protein 7.1 Albumin 4.2 Blood Type O Positive Antibody Screen Negative Quality VTE Prophylaxis VTE prophylaxis: mechanical ordered
[2025-03-20] MEDS: LACTATED RINGERS 1,000 ML 30 ML IV CONT (09:30)
[2025-03-20] MEDS: KETOROLAC 15 MG/ML VIAL (*BKC) IV PUSH (09:57)
[2025-03-20] MEDS: ACETAMINOPHEN 500 MG TABLET 1000 MG PO (09:57)
[2025-03-20] MEDS: TRANEXAMIC ACID 1,000MG/ISO100 1,000 MG/100 ML BAG 200 MG IVPB (09:58)
--- NOTE | 2025-03-20 10:25 | WPDHPUPDATE1 ---
History and Physical Update Update Date/Time: 03/20/25 10:25 History and Physical has been reviewed, including an updated exam of the patient. There are NO changes in the patient's condition. Risks, benefits, and alternatives have been discussed and questions answered. Patient agrees to proceed with procedure.
--- NOTE | 2025-03-20 11:23 | WPDANESEPPF ---
Anes - Initial Pre Proc Eval Procedure: Operation Date: 03/20/25 10:30 Proposed Procedures p Left Hip Intertrochanteric Nail - Adryan Velez MD Date/Time: 03/20/25 11:23 Surgeon: Jessica Mckeon MD Pre Op Diagnosis: Left Intertrochanteric Hip Fracture Patient Data Age: 85 Gender: F Height: 1.6 m Weight: 75 kg Last Vital Signs Temp 36.7 C 03/20/25 10:01 Pulse 91 03/20/25 10:01 Resp 16 03/20/25 10:01 BP 132/71 03/20/25 10:01 Pulse Ox 94 03/20/25 10:01 O2 Del Method Room Air 03/20/25 10:01 O2 Flow Rate 2 03/19/25 23:00 Allergies Allergy/AdvReac Type Severity Reaction Status Date / Time Penicillins Allergy Severe Difficulty Verified 03/20/25 09:57 Breathing venlafaxine (From Effexor) AdvReac Intermediate [place] Verified 03/20/25 09:57 Home Medications ?Medication ?Instructions ?Recorded ?Confirmed ?Type omega-3 fatty acids-fish oil 360 1 cap PO DAILY #90 caps 05/18/20 03/19/25 Rx mg-1,200 mg capsule (Fish Oil) albuterol sulfate 90 mcg/actuation See Rx Instructions .Route 06/20/23 03/19/25 Rx aerosol inhaler .COMPLEX #8.5 ea montelukast 10 mg tablet See Rx Instructions .Route 09/16/24 03/19/25 Rx .COMPLEX #90 tabs cholecalciferol (vitamin D3) 25 25 mcg PO DAILY 01/21/25 03/19/25 History mcg (1,000 unit) capsule (Vitamin D3) ibuprofen 200 mg tablet (Advil) 400 mg PO Q6H PRN pain 01/21/25 03/19/25 History benzonatate 100 mg capsule 100 mg PO TID PRN cough 03/19/25 03/19/25 History escitalopram oxalate 20 mg tablet 20 mg PO DAILY 03/19/25 03/19/25 History fluticasone 250 mcg-salmeterol 50 1 inh inhalation Q12H 03/19/25 03/19/25 History mcg/dose blistr powdr for inhalation guaifenesin 600 mg tablet, 600 mg PO Q12H PRN cough 03/19/25 03/19/25 History extended release 12 hr (Mucinex) lisinopril 10 0.5 tablet PO DAILY 03/19/25 03/19/25 History mg-hydrochlorothiazide 12.5 mg tablet vitamin B complex 1 cap PO DAILY 03/19/25 03/19/25 History Laboratory Tests 03/20/25 05:42 WBC 11.3 H K/mm3 (4.5-10.0) RBC 4.11 L M/mm3 (4.2-5.4) Hgb 12.7 g/dL (12.0-15.0) Hct 39.2 % (37.0-47.0) MCV 95.4 fl (80-100) MCH 30.9 pg (26-34) MCHC 32.4 g/dl (32-36) RDW 13.6 % (11.5-14.5) Plt Count 259 k/mm3 (150-375) MPV 10.3 fl (7.4-10.4) Immature Gran % (Auto) 0.8 H % (0-0.5) Neut % (Auto) 77.9 H % (45.5-73.1) Lymph % (Auto) 10.1 L % (18.3-44.2) [place] % (Auto) 10.9 H % (2.6-8.5) Eos % (Auto) 0.0 % (0-4.4) Baso % (Auto) 0.3 % (0.2-1.2) Lymph # (Auto) 1.14 K/mm3 (0.9-3.2) [place] # (Auto) 1.2 H K/mm3 (0.1-0.6) Eos # (Auto) 0.0 K/mm3 (0-0.3) Baso # (Auto) 0.0 K/mm3 (0.0-0.1) Abs Immat Gran (auto) 0.09 H K/mm3 (0.00-0.031) Absolute Neuts (auto) 8.8 H K/mm3 (1.3-6.7) Absolute Nucleated RBC 0.000 K/mm3 (0.0-0.012) Nucleated RBC % 0.0 % (0.0-0.2) Sodium 131 L mmol/L (137-145) Potassium 4.7 mmol/L (3.4-5.0) Chloride 97 L mmol/L (98-107) Carbon Dioxide 25 mmol/L (22-30) Anion Gap 9 mmol/L (4-12) BUN 34 H D mg/dL (7-17) Creatinine 1.49 H mg/dL (0.7-1.0) Estim Creat Clear Calc 25 ml/min Estimated GFR 33 L (59 - ) Glucose 126 H mg/dL (65-110) Calcium 9.3 mg/dL (8.4-10.2) Patient hx anesthesia problems: none Family hx anesthesia problems: none Results Review: All pre-operative results and documents have been reviewed as part of the pre-operative evaluation. COUNTS INCLUDE 234 BEDS AT THE [facility] Past Medical History Medical History Spinal stenosis Incisional hernia History of diverticulitis Asthma Sepsis HTN (hypertension) Incisional hernia, without obstruction or gangrene History of small bowel obstruction Vitamin D deficiency Tobacco abuse Postmenopausal Intermittent claudication Depression HLD (hyperlipidemia) COPD (chronic obstructive pulmonary disease) Surgical History Surgical History History of tubal ligation History of partial colectomy (~2013) Family History Family History Mother Patient's mother is , Onset Age: 92 Social History Social History Smoking packs per day: 0.5 Smoking cigarettes per day: 10.0 Years smoked: 60 Smoking pack-years: 30.00 Smoking status: Current every day smoker Tobacco type: cigarettes Second hand tobacco smoke exposure: Yes Alcohol intake: current Drinks per week: 5 Substance use: never Substance use type: does not use Do You Feel Safe in your Home?: Yes Lack of Transportation: No Lack of Food: Never True Current Housing: I Have Housing Concerned About Future Housing: No Difficulty Paying Gas/Electric Bills: No Difficulty Paying for Meds: No Currently Unemployed: No Education: Master's Degree or Higher Difficulty w/ Childcare or Family Care: No Living arrangements: alone Spiritual care concerns: No Anes - Eval Final PreProcedure Day of Procedure 03/20/25 11:23 Patient weight: overweight Heart: regular rate and rhythm Lungs: normal air movement and decreased breath sounds Airway: Mallampati scale class 1 Neurological: alert and oriented Last oral intake: >/= 8 hours ASA classification: IV Emergent: no Anesthetic plan: proceed Anesthesia type and monitoring: general ETT and standard monitoring Results Review: All pre-operative results and documents have been reviewed as part of the pre-operative evaluation. Informed Consent: The patient's anesthetic plan and its attendant risks and benefits were discussed with the patient/family/POA. Questions were solicited and answers provided to the satisfaction of the patient/family/POA.
[2025-03-20] MEDS: IPRATROPIUM 0.5 MG/ALBUTEROL SULFATE 2.5 MG (BASE) AMPUL.NEB 3 ML INHALATION (12:10)
[2025-03-20] MEDS: BUPIVACAINE/EPINEPHRINE 0.5% 50 ML VIAL 30 ML INFILTRATE (12:16)
[2025-03-20] MEDS: ceFAZolin 2 GM in SODIUM CHLORIDE 0.9% IV 50 ML 100 ML IVPB ×2 (12:16→20:28)
--- NOTE | 2025-03-20 13:20 | P.OP_ITS ---
Procedure Note - Detailed Date of Procedure 03/20/25 Pre-op Diagnosis Left Intertrochanteric Hip Fracture Post-op Diagnosis Same Procedure Performed Left hip trochanteric intramedullary nail fixation Surgeon Adryan Velez MD Medical Attendant 1st assist Anesthesia General Indications 85-year-old woman who fell and sustained left hip intertrochanteric fracture with displacement. Desires operative treatment. Description of Procedure After informed consent the operative extremity was marked in the preoperative holding area. Patient received intravenous antibiotics. The patient was taken to the operative room, placed in the supine position, general anesthesia induced by the anesthesia team, and was placed on a fracture table with longitudinal traction applied to the left leg. The hip fracture was reduced to near anatomic position and verified with image intensification. The right lower extremity was extended out of the field, Supported and protected. A time-out was performed confirming the patient, site of the surgery and plan. The left lower extremity was prepped and draped sterilely from the knee to the iliac crest region using a ChloraPrep skin solution. Incision was made just proximal to greater trochanter down to the subcutaneous tissues. Hemostasis controlled with electrocautery. Blunt dissection through the fascia to the tip of the greater trochanter. A starter awl was placed at the tip of the greater trochanter into the medullary canal of the femur. This was checked with image intensification and was in good position. Intramedullary guide mei positioned. A one-step hand reaming done proximally. Intramedullary canal was reamed with a 12.5 millimeter flexible reamer. Measuring was then performed off of the guide mei. Neck angle selected off of preoperative radiographs temp plating. 125 degree 11 X 360mm Nail opened on the back table and assembled. This was then inserted over the guide mei to the correct depth. Guide mei removed. Lag screw was then placed with a stab incision over the l ateral femur using a 10 blade knife. Blunt dissection down to the lateral side of the bone. Soft tissue protectors placed. Guide pin placed in the center center position of the femoral head and measured. millimeter 100 x 10.5 millimeter lag screw placed to correct depth and verified with image intensification. Traction released from the leg and compression of the fracture performed with the external compression device. An anti rotation lag screw was felt necessary due to the unstable fracture pattern. The soft tissue protector was placed and the femoral neck was drilled and measured. 5 x 85 mm anti- rotational screw placed with good compression and fixation noted. Placement verified with image intensification. Distal locking of the nail necessary due to instability in the intramedullary canal and proximal femur. Stab incision made lateral distal thigh. Blunt dissection down lateral side of the femur. soft tissue protector placed and the femur was drilled and measured and the appropriate size screw placed. Image intensification confirmed the placement through the locking hole. Final image intensification confirm reduction of the fracture and placement of the hardware. Wounds then thoroughly irrigated with antibiotic solution. Fascia repaired with 0 Vicryl interrupted suture. Subcutaneous tissue repaired with 00 Vicryl interrupted suture and skin repaired with benjamin. Sterile dressings applied. Patient then awoke from anesthesia, extubated, taken to recovery room stable condition. All sponge, needle and instrument counts correct at the end the Implants Arthrex trochanteric nail 11 x 360 mm by 125 degree, 10.5 x 100 mm lag screw, 5 x 85 mm anti-rotational screw, 5 x 38 mm distal locking screw. Estimated Blood Loss 100 Drains No Packing No Pathology None sent Complications None Condition Stable Disposition PACU [facility] Billing Surgery - Charge Forward: Surgery Billing ([id number])
[2025-03-20] MEDS: fentaNYL CITRATE INJ (*CRX) 100 MCG/2 ML VIAL 25 MCG IV PUSH ×2 (14:08→14:18)
[2025-03-20 16:30] LABS: Add Urine Microscopic? YES; Appearance Urine Cloudy (Clear); Glucose Urine UA Negative (Negative); Leukocyte Esterase Ur 2+ LEU/UL (Negative); Need Manual Microscopic Reviewed; Nitrate Urine Negative (Negative); Non Pathogenic Casts >20; Specific Grav Ur 1.020 (1.001-1.035)
[2025-03-20] MEDS: HYDROcodone/acetaminophen (*CRX) 5-325 MG TABLET 1 TAB PO ×2 (18:39→22:48)
[2025-03-20] MEDS: RIVAROXABAN 10 MG TABLET PO (20:29)
[2025-03-21] VITALS (8 sets, daily range): BP systolic 118–126; BP diastolic 64–79; PULSE 78–106; RESP 14–16; TEMP 36.4–37; O2SAT 84–100
[2025-03-21] MEDS: ceFAZolin 2 GM in SODIUM CHLORIDE 0.9% IV 50 ML 100 ML IVPB ×3 (03:46→22:00)
[2025-03-21] MEDS: HYDROcodone/acetaminophen (*CRX) 5-325 MG TABLET 1 TAB PO ×3 (04:16→17:12)
[2025-03-21 06:34] LABS: Hematocrit 32.4 % (37.0-47.0); Hemoglobin 10.3 g/dL (12.0-15.0); Immature Granulocyte Percent A 0.8 % (0-0.5); Lymphocytes Absolute Auto 1.55 K/mm3 (0.9-3.2); Mean Corpuscular HGB Conc 31.8 g/dl (32-36); Mean Corpuscular Hemoglobin 30.6 pg (26-34); Mean Corpuscular Volume 96.1 fl (80-100); Nucleated Red Blood Cells Absolute Auto 0.000 K/mm3 (0.0-0.012); Nucleated Red Blood Cells Perc 0.0 % (0.0-0.2); Platelet Count Result 219 k/mm3 (150-375); Red Blood Count 3.37 M/mm3 (4.2-5.4); White Blood Count 12.0 K/mm3 (4.5-10.0)
[2025-03-21 06:57] LABS: Anion Gap 5 mmol/L (4-12); Blood Urea Nitrogen 44 mg/dL (7-17); Calcium 8.9 mg/dL (8.4-10.2); Carbon Dioxide 27 mmol/L (22-30); Chloride 96 mmol/L (98-107); Estimated CRCL calculation 22 ml/min; Estimated Glomerular Filt Rate 29; Glucose 94 mg/dL (65-110); Potassium 4.5 mmol/L (3.4-5.0); Sodium 128 mmol/L (137-145)
--- NOTE | 2025-03-21 07:23 | P.PNIM_ITS ---
Progress Note: A&P Assessment and Plan (1) Displaced intertrochanteric fracture of left femur: Qualifiers: Encounter type: initial encounter Fracture type: closed Qualified Code(s): S72.142A - Displaced intertrochanteric fracture of left femur, initial encounter for closed fracture Code(s): S72.142A - Displaced intertrochanteric fracture of left femur, initial encounter for closed fracture Status: Acute Assessment and Plan: Patient sustained a mechanical ground level fall due to a missed that point. Reported left hip pain and low back pain post fall. Unable to ambulate. Trauma workup included a head CT, C-spine CT, hip/pelvic XR, CXR, and lumbar spine CT. Imaging significant for a displaced comminuted left intertrochanteric fracture, no other acute findings. Patient admitted for surgical management of her intratrochanteric fracture. * analgesics p.r.n.: Tylenol, [place], morphine * bowel regimen p.r.n.: Doculax p.r.n., MiraLax p.r.n. * antiemetic p.r.n. * check UA, monitor CBC and BMP preop * SCDs * encourage IS * will need PT/OT postop * orthopedics consulted >> left hip trochanteric nail * Post op 03/20/2025 Left hip trochanteric intramedullary nail fixation * Per orthopedic recommendations * Continue weight-bearing as tolerated * Continue p.r.n. pain control * DVT prophylaxis with several toe * SCDs, encourage incentive spirometer * Regular dressing changes -transition to Mepilex silver tomorrow (2) HTN (hypertension): Qualifiers: Hypertension type: primary hypertension Qualified Code(s): I10 - Es sential (primary) hypertension Code(s): I10 - Essential (primary) hypertension Status: Chronic Assessment and Plan: * chronic, currently 104/80, stable * hold home medication(s) due to impending surgery, hydralazine p.r.n. ordered for BP greater than 180/90 * monitor (3) COPD (chronic obstructive pulmonary disease): Qualifiers: COPD type: unspecified COPD Qualified Code(s): J44.9 - Chronic obstructive pulmonary disease, unspecified Code(s): J44.9 - Chronic obstructive pulmonary disease, unspecified Status: Chronic Assessment and Plan: No current evidence of exacerbation on exam. * continue albuterol p.r.n. and fluticasone-salmeterol b.i.d. (4) ANDRES (acute kidney injury): Code(s): N17.9 - Acute kidney failure, unspecified Status: Acute Assessment and Plan: * Creatinine: 0.76 -> 1.49 , BUN: 16 -> 34 * IV Fluids: NS @ 100 mls/hr * Trend renal function * Trend electrolytes, correct as needed (5) UTI (urinary tract infection): Code(s): N39.0 - Urinary tract infection, site not specified Status: Acute Assessment and Plan: * States that she is feeling she urinary pressure that she feels any time she gets a UTI * UA: 1+ protein, trace ketones +bilirubin 2+ leukocyte esterase, 51-100 WBC * UC obtained on 03/20 * started on Cefazolin * Continue to monitor urine cultures, WBC Plan Diet: Heart healthy, NPO midnight GI Prophylaxis: N/a DVT Prophylaxis: SCDs IV fluids: NS @ 100 mls/hr Lines/Tubes: Peripheral IV Code Status: Full code Subjective Date/time seen: 03/21/25 07:23 Interval history: 85 y/o F with PMH of hypertension, SBO, asthma, vitamin-D deficiency, hyperlipidemia, depression, and COPD presents here with left hip pain due to a ground level fall. 03/21/2025 Patient resting comfortably in bed at time of examination. UA and culture obtained for suspected UTI. Will start on Rocephin. Continue to monitor dressing and pain levels. Postop 03/20 Left hip trochanteric intramedullary nail fixation. Continue weight-bearing as tolerated. Review of Systems Review of Systems: All systems reviewed & are unremarkable except as noted in HPI and below Exam Const: General: no acute distress Other: , female, elderly, uncomfortable secondary to hip pain HENMT: Face/Nose/Sinus: Normal nares present Mouth: Yes moist mucous membranes Eyes: General: appearance normal, both eyes and all related structures Sclera: sclerae normal Pupils: Equal, round and reactive pupils present EOM: EOMs intact bilaterally Resp: Effort & Inspection: normal respiratory effort Auscultation: clear to auscultation bilaterally Cardio: Rate: regular rate Rhythm: regular rhythm Other: S1-S2 present without murmur, rub, ectopy GI: Other: Abdomen soft. Hernia noted to the right mid quadrant, chronic for patient. Normoactive bowel sounds in all quadrants. No tenderness on exam. Skin: General skin exam: normal color and no rashes or lesions noted Wounds: no wounds Neuro: Cranial nerves: Yes Equal, round and reactive pupils present Speech: normal speech Motor exam (neuro): 5/5 motor strength present throughout Sensory Exam: normal sensation Other: A&O x4 Extrem: Other: No peripheral edema. Extremities warm and dry. DP 2+ in the right lower extremity and 1+ in the left lower extremity. Psych: Mental Status: mental status grossly normal Affect: normal affect Other: Good insight and judgment, pleasant Objective Data Vital Signs Vital Signs: Vital Signs - 24 hr 03/20/25 09:00 03/20/25 10:01 03/20/25 12:11 Temperature 98.0 F Pulse Rate 91 86 Respiratory Rate 16 20 Blood Pressure 132/71 Pulse Oximetry 93 94 Oxygen Delivery Nasal Cannula Room Air Oxygen Flow Rate 2 Fraction of Inspired Oxygen 03/20/25 13:29 03/20/25 13:40 03/20/25 13:55 Temperature 97.9 F Pulse Rate 107 H 108 H 104 H Respiratory Rate 15 15 22 H Blood Pressure 152/72 H 155/72 H 143/79 H Pulse Oximetry 100 100 99 Oxygen Delivery Simple Face Mask Simple Face Mask Simple Face Mask Oxygen Flow Rate 8 8 8 Fraction of Inspired Oxygen 03/20/25 14:10 03/20/25 14:25 03/20/25 14:40 Temperature Pulse Rate 104 H 104 H 106 H Respiratory Rate 17 14 15 Blood Pressure 118/66 143/77 H 121/72 Pulse Oximetry 93 95 94 Oxygen Delivery Nasal Cannula Nasal Cannula Nasal Cannula Oxygen Flow Rate 3 3 3 Fraction of Inspired Oxygen 03/20/25 14:47 03/20/25 15:02 03/20/25 15:32 Temperature 96.5 F L 97.6 F 98.7 F Pulse Rate 72 78 86 Respiratory Rate 16 16 16 Blood Pressure 138/73 138/82 123/79 Pulse Oximetry 94 99 99 Oxygen Delivery Oxygen Flow Rate Fraction of Inspired Oxygen 03/20/25 16:32 03/20/25 20:10 03/20/25 23:55 Temperature 98.3 F 98 F 97 F L Pulse Rate 89 112 H 105 H Respiratory Rate 18 18 20 Blood Pressure 130/79 112/83 113/76 Pulse Oximetry 100 93 98 Oxygen Delivery Oxygen Flow Rate Fraction of Inspired Oxygen 03/21/25 04:32 03/21/25 04:49 Temperature 97.6 F Pulse Rate 106 H Respiratory Rate 16 Blood Pressure 126/64 Pulse Oximetry 97 91 Oxygen Delivery Nasal Cannula Oxygen Flow Rate 3 Fraction of Inspired Oxygen 91 Intake/Output Intake/Output: Intake & Output 03/18/25 03/19/25 03/20/25 03/21/25 23:59 23:59 23:59 23:59 Intake Total 240 390 300 Output Total 0 Balance 240 390 300 Meds/Results Medications: Active Medications Generic Name Dose Route Start Last Admin Trade Name Freq PRN Reason Stop Dose Admin Acetaminophen 650 mg 03/19/25 13:31 Acetaminophen 325 Mg Tablet PO Q4H PRN Mild Pain (1-3) or Fever Hydrocodone Bitart/Acetaminophen 1 tab 03/19/25 13:31 03/21/25 04:16 Hydrocodone/Acetaminophen (*Crx) 5-325 Mg Tablet PO 1 tab Q4H PRN Administration Moderate Pain (4-6) Bisacodyl 5 mg 03/19/25 13:31 Bisacodyl 5 Mg Tablet Ec PO DAILY PRN Constipation Celecoxib 200 mg 03/21/25 08:00 Celecoxib 200 Mg Capsule PO DAILY@0800 [facility] Escitalopram Oxalate 20 mg 03/21/25 09:00 Escitalopram Oxalate 10 Mg Tablet PO DAILY [facility]ANG Hydralazine HCl 10 mg 03/19/25 13:50 Hydralazine Hcl 20 Mg/Ml Vial IV PUSH Q8H PRN Blood Pressure - High, >180/90 Hydrochlorothiazide 6.25 mg 03/21/25 09:00 Hydrochlorothiazide 6.25 Mg Tablet PO QAM [facility] Hydromorphone HCl 0.5 mg 03/20/25 14:47 Hydromorphone Hcl Inj (*Crx) 1 Mg/Ml Syr IV PUSH Q2H PRN Breakthrough Pain Rated 4-6 or NPO Hydroxyzine Pamoate 50 mg 03/20/25 14:47 Hydroxyzine Pamoate 25 Mg Capsule PO Q4H PRN Itching Cefazolin Sodium 2 gm/ Sodium 50 mls @ 100 mls/hr 03/20/25 20:00 03/21/25 03:46 Chloride IVPB 03/21/25 12:29 100 mls/hr Q8H FANG Administration Ibuprofen 800 mg in 200 mls @ 400 mls/hr 03/20/25 15:00 Caldolor 800 Mg/200 Ml IVPB Q6H PRN Breakthrough Pain Rated 1-3 or NPO Lisinopril 5 mg 03/21/25 09:00 Lisinopril 5 Mg Tablet PO QAM FANG Morphine Sulfate 2 mg 03/19/25 13:31 03/20/25 05:08 Morphine Sulfate (*Crx) 4 Mg/Ml Inj IV PUSH 2 mg Q4H PRN Administration Pain Rated 7-10 Naloxone HCl 0.1 mg 03/20/25 14:47 Naloxone Hcl 0.4 Mg/Ml Vial IV PUSH Q2M PRN Opiate Reversal Ondansetron HCl 4 mg 03/19/25 13:31 03/20/25 04:48 Ondansetron Inj 4 Mg/2 Ml Vial IV PUSH 4 mg Q6H PRN Administration Nausea And Vomiting Polyethylene Glycol 17 gm 03/19/25 13:31 Polyethylene Glycol 3350 17 Gm Powd.Pack PO QAM PRN Constipation Polyethylene Glycol 17 gm 03/21/25 09:00 Polyethylene Glycol 3350 17 Gm Powd.Pack PO QAM [facility]ANG Rivaroxaban 10 mg 03/20/25 21:00 03/20/25 20:29 Rivaroxaban 10 Mg Tablet PO 10 mg DAILY@17 [facility] Administration Vitamin D 25 mcg 03/21/25 09:00 Cholecalciferol (Vitamin D3) 25 Mcg (1,000 Units) Tablet PO DAILY [facility] Radiology Results: ITS Impressions Head CT 03/19/25 10:34 IMPRESSION: No acute brain findings. No significant abnormality is seen. All CT scans at this facility are performed using low dose modulation techniques as appropriate to perform exam including the following: automated exposure control; use of iterative reconstruction technique; adjustment of the mA and/or kV according to patient size (this includes techniques or standardized protocols for targeted exams where dose is matched to indication/reason for exam). Cervical Spine CT 03/19/25 10:38 IMPRESSION: 1. No acute findings. Hip/Pelvis X-Ray 03/19/25 10:44 Impression: Fractures detailed above Lumbar Spine CT 03/19/25 10:50 IMPRESSION: 1. Mild S-shaped scoliosis of the lumbar and lower thoracic spine with mild to moderate spondylosis. No acute osseous abnormality. Chest X-Ray 03/20/25 12:12 IMPRESSION: No acute findings. Intraoperative X-Ray 03/20/25 13:54 IMPRESSION: As above. See also operative/surgical notes for complete details. Labs Labs: Laboratory Results - last 24 hr 03/20/25 03/21/25 16:06 06:05 WBC 12.0 H RBC 3.37 L Hgb 10.3 L Hct 32.4 L MCV 96.1 MCH 30.6 MCHC 31.8 L RDW 13.6 Plt Count 219 MPV 10.4 Immature Gran % (Auto) 0.8 H Neut % (Auto) 71.6 Lymph % (Auto) 12.9 L [place] % (Auto) 14.1 H Eos % (Auto) 0.3 Baso % (Auto) 0.3 Lymph # (Auto) 1.55 [place] # (Auto) 1.7 H Eos # (Auto) 0.0 Baso # (Auto) 0.0 Abs Immat Gran (auto) 0.10 H Absolute Neuts (auto) 8.6 H Absolute Nucleated RBC 0.000 Nucleated RBC % 0.0 Sodium 128 L Potassium 4.5 Chloride 96 L Carbon Dioxide 27 Anion Gap 5 BUN 44 H D Creatinine 1.67 H Estim Creat Clear Calc 22 Estimated GFR 29 L Glucose 94 Calcium 8.9 Urine Color Dark yellow Urine Appearance Cloudy H Urine pH 5.0 Ur Specific [place] 1.020 Urine Protein 1+ H Urine Glucose (UA) Negative Urine Ketones Trace H Ur Blood (Man) Negative Urine Nitrate Negative Urine Bilirubin 1+ H Urine Urobilinogen 1.0 Add Ur Microanalysis Reviewed Leukocyte Esterase Rfl 2+ H Urine RBC 0-2 Urine WBC 51-100 H Ur Squamous Epith Cells Few Urine Bacteria Rare Urine Casts >20 Quality VTE Prophylaxis VTE prophylaxis: mechanical ordered
[2025-03-21] MEDS: CELECOXIB 200 MG CAPSULE PO (09:47)
[2025-03-21] MEDS: hydroCHLOROthiazide 6.25 MG TABLET PO (09:48)
[2025-03-21] MEDS: ESCITALOPRAM OXALATE 10 MG TABLET 20 MG PO (09:48)
[2025-03-21] MEDS: CHOLECALCIFEROL (VITAMIN D3) 25 MCG (1,000 UNITS) TABLET PO (09:48)
--- NOTE | 2025-03-21 09:49 | P.PNOP_ITS ---
Progress Note: A&P Assessment and Plan (1) Displaced intertrochanteric fracture of left femur: Qualifiers: Encounter type: initial encounter Fracture type: closed Qualified Code(s): S72.142A - Displaced intertrochanteric fracture of left femur, initial encounter for closed fracture Code(s): S72.142A - Displaced intertrochanteric fracture of left femur, initial encounter for closed fracture Status: Acute Assessment and Plan: POD #1: Left hip trochanteric intramedullary nail fixation Continue PT/OT. WBAT. Walker. HIGH FALL RISK. Continue pain control. Ice Hip. Protect skin. DVT prophylaxis with Xarelto. SCDs. Incentive Spirometry Use reviewed and encouraged. Monitor Dressing. Change tomorrow- transition to Mepilex Silver. Bowel Regimen. Dispo: CHRIS pending progress with PT/OT Plan Reviewed history, exam, radiographs and current labs with attending MD and covering surgeon, Dr. Velez, who agrees with current plan as indicated above. No further recommendations from Dr. Velez at this time. Subjective Subjective Date/Time Seen: 03/21/25 09:49 Post Op day: 1 Interval history: POD #1: Left hip trochanteric intramedullary nail fixation Patient doing well. Pain well controlled. Review of Systems Constitutional: Constitutional: Denies chills, Denies fatigue, Denies fever(s), Denies night sweats and Denies weakness Cardiovascular: Cardiovascular: Denies chest pain, Denies lightheadedness, Denies palpitations and Denies dyspnea Respiratory: Respiratory: Denies cough, Denies dyspnea and Denies wheezing Gastrointestinal: Gastrointestinal: Denies abdominal pain, Denies diarrhea, Denies nausea and Denies vomiting Musculoskeletal: Musculoskeletal: Reports arthralgias (left hip ), Reports joint swelling (left hip ) and Denies numbness Neurologic: Denies numbness and Denies weakness Endocrine: Endocrine: Denies fatigue and Denies palpitations Allergic/Immunologic: Allergic/Immunologic: Denies wheezing Exam Const: General: comfortable and no acute distress Orientation/consciousness: patient oriented x3 Limitations: no limitations Resp: Effort & Inspection: normal respiratory effort Cardio: Rate: regular rate Rhythm: regular rhythm GI: Inspection: non-distended Skin: General skin exam: normal color and wounds noted (incision left hip C/D/I ) Wounds: wounds noted (incision left hip C/D/I ) Neuro: General: patient oriented x3 Extrem: Left lower extremity: hip/thigh Details: tenderness Location: of the hip Location: laterally and anteriorly, swelling (thigh soft ) Location: of the hip (lateral. ), abnormal ROM (limitations with internal/external rotation and flexion/extension due to recent surgical intervention ) and other (incision lateral hip c/d/i. ), knee Details: normal to inspection and normal ROM; no tenderness and no swelling, lower leg (Negative Humberto's Sign ) Details: no edema, ankle (+ankle dorsiflexion/plantarflexion ) Details: normal to inspection, no edema and normal ROM; no tenderness, no swelling and no warmth and foot Details: normal capillary refill, toes with normal ROM, vascular exam Details: dorsalis pedis pulse present and motor-sensory exam light-touch normal in all toes; no tenderness, no ecchymosis and no crepitus Psych: Mental Status: mental status grossly normal Affect: normal affect Objective Data Vital Signs Vital Signs: Vital Signs - 24 hr 03/20/25 10:01 03/20/25 12:11 03/20/25 13:29 Temperature 36.7 C 36.6 C Pulse Rate 91 86 107 H Respiratory Rate 16 20 15 Blood Pressure 132/71 152/72 H Pulse Oximetry 94 100 Oxygen Delivery Room Air Simple Face Mask Oxygen Flow Rate 8 Fraction of Inspired Oxygen 03/20/25 13:40 03/20/25 13:55 03/20/25 14:10 Temperature Pulse Rate 108 H 104 H 104 H Respiratory Rate 15 22 H 17 Blood Pressure 155/72 H 143/79 H 118/66 Pulse Oximetry 100 99 93 Oxygen Delivery Simple Face Mask Simple Face Mask Nasal Cannula Oxygen Flow Rate 8 8 3 Fraction of Inspired Oxygen 03/20/25 14:25 03/20/25 14:40 03/20/25 14:47 Temperature 35.8 C L Pulse Rate 104 H 106 H 72 Respiratory Rate 14 15 16 Blood Pressure 143/77 H 121/72 138/73 Pulse Oximetry 95 94 94 Oxygen Delivery Nasal Cannula Nasal Cannula Oxygen Flow Rate 3 3 Fraction of Inspired Oxygen 03/20/25 15:02 03/20/25 15:32 03/20/25 16:32 Temperature 36.4 C 37.1 C 36.8 C Pulse Rate 78 86 89 Respiratory Rate 16 16 18 Blood Pressure 138/82 123/79 130/79 Pulse Oximetry 99 99 100 Oxygen Delivery Oxygen Flow Rate Fraction of Inspired Oxygen 03/20/25 20:10 03/20/25 23:55 03/21/25 04:32 Temperature 36.6 C 36.1 C L 36.4 C Pulse Rate 112 H 105 H 106 H Respiratory Rate 18 20 16 Blood Pressure 112/83 113/76 126/64 Pulse Oximetry 93 98 97 Oxygen Delivery Oxygen Flow Rate Fraction of Inspired Oxygen 03/21/25 04:49 03/21/25 08:32 03/21/25 08:47 Temperature 36.9 C Pulse Rate 79 Respiratory Rate 16 Blood Pressure 118/69 Pulse Oximetry 91 100 Oxygen Delivery Nasal Cannula Room Air Oxygen Flow Rate 3 Fraction of Inspired Oxygen 91 03/21/25 09:06 Temperature Pulse Rate Respiratory Rate Blood Pressure Pulse Oximetry Oxygen Delivery Nasal Cannula Oxygen Flow Rate 1 Fraction of Inspired Oxygen Intake/Output Intake/Output: Intake & Output 03/18/25 03/19/25 03/20/25 03/21/25 23:59 23:59 23:59 23:59 Intake Total 240 390 540 Output Total 0 Balance 240 390 540 Meds/Results Medications: Active Medications Generic Name Dose Route Start Last Admin Trade Name Freq PRN Reason Stop Dose Admin Acetaminophen 650 mg 03/19/25 13:31 Acetaminophen 325 Mg Tablet PO Q4H PRN Mild Pain (1-3) or Fever Hydrocodone Bitart/Acetaminophen 1 tab 03/19/25 13:31 03/21/25 04:16 Hydrocodone/Acetaminophen (*Crx) 5-325 Mg Tablet PO 1 tab Q4H PRN Administration Moderate Pain (4-6) Bisacodyl 5 mg 03/19/25 13:31 Bisacodyl 5 Mg Tablet Ec PO DAILY PRN Constipation Celecoxib 200 mg 03/21/25 08:00 03/21/25 09:47 Celecoxib 200 Mg Capsule PO 200 mg DAILY@0800 FANG Administration Escitalopram Oxalate 20 mg 03/21/25 09:00 03/21/25 09:48 Escitalopram Oxalate 10 Mg Tablet PO 20 mg DAILY [facility]ANG Administration Hydralazine HCl 10 mg 03/19/25 13:50 Hydralazine Hcl 20 Mg/Ml Vial IV PUSH Q8H PRN Blood Pressure - High, >180/90 Hydrochlorothiazide 6.25 mg 03/21/25 09:00 03/21/25 09:48 Hydrochlorothiazide 6.25 Mg Tablet PO 6.25 mg QAM FANG Administration Hydromorphone HCl 0.5 mg 03/20/25 14:47 Hydromorphone Hcl Inj (*Crx) 1 Mg/Ml Syr IV PUSH Q2H PRN Breakthrough Pain Rated 4-6 or NPO Hydroxyzine Pamoate 50 mg 03/20/25 14:47 Hydroxyzine Pamoate 25 Mg Capsule PO Q4H PRN Itching Cefazolin Sodium 2 gm/ Sodium 50 mls @ 100 mls/hr 03/20/25 20:00 03/21/25 03:46 Chloride IVPB 03/21/25 12:29 100 mls/hr Q8H FANG Administration Ibuprofen 800 mg in 200 mls @ 400 mls/hr 03/20/25 15:00 Caldolor 800 Mg/200 Ml IVPB Q6H PRN Breakthrough Pain Rated 1-3 or NPO Sodium Chloride 1,000 mls @ 100 mls/hr 03/21/25 07:30 Normal Saline Iv IV CONT .Q10H FANG Lisinopril 5 mg 03/21/25 09:00 03/21/25 09:48 Lisinopril 5 Mg Tablet PO 5 mg QAM FANG Administration Morphine Sulfate 2 mg 03/19/25 13:31 03/20/25 05:08 Morphine Sulfate (*Crx) 4 Mg/Ml Inj IV PUSH 2 mg Q4H PRN Administration Pain Rated 7-10 Naloxone HCl 0.1 mg 03/20/25 14:47 Naloxone Hcl 0.4 Mg/Ml Vial IV PUSH Q2M PRN Opiate Reversal Ondansetron HCl 4 mg 03/19/25 13:31 03/20/25 04:48 Ondansetron Inj 4 Mg/2 Ml Vial IV PUSH 4 mg Q6H PRN Administration Nausea And Vomiting Polyethylene Glycol 17 gm 03/19/25 13:31 Polyethylene Glycol 3350 17 Gm Powd.Pack PO QAM PRN Constipation Polyethylene Glycol 17 gm 03/21/25 09:00 03/21/25 09:47 Polyethylene Glycol 3350 17 Gm Powd.Pack PO 17 gm QAM FANG Administration Rivaroxaban 10 mg 03/20/25 21:00 03/20/25 20:29 Rivaroxaban 10 Mg Tablet PO 10 mg DAILY@17 FANG Administration Vitamin D 25 mcg 03/21/25 09:00 03/21/25 09:48 Cholecalciferol (Vitamin D3) 25 Mcg (1,000 Units) Tablet PO 25 mcg DAILY FANG Administration Radiology Results: ITS Impressions Head CT 03/19/25 10:34 IMPRESSION: No acute brain findings. No significant abnormality is seen. All CT scans at this facility are performed using low dose modulation techniques as appropriate to perform exam including the following: automated exposure control; use of iterative reconstruction technique; adjustment of the mA and/or kV according to patient size (this includes techniques or standardized protocols for targeted exams where dose is matched to indication/reason for exam). Cervical Spine CT 03/19/25 10:38 IMPRESSION: 1. No acute findings. Hip/Pelvis X-Ray 03/19/25 10:44 Impression: Fractures detailed above Lumbar Spine CT 03/19/25 10:50 IMPRESSION: 1. Mild S-shaped scoliosis of the lumbar and lower thoracic spine with mild to m oderate spondylosis. No acute osseous abnormality. Chest X-Ray 03/20/25 12:12 IMPRESSION: No acute findings. Intraoperative X-Ray 03/20/25 13:54 IMPRESSION: As above. See also operative/surgical notes for complete details. Labs Labs: Laboratory Results - last 24 hr 03/20/25 03/21/25 16:06 06:05 WBC 12.0 H RBC 3.37 L Hgb 10.3 L Hct 32.4 L MCV 96.1 MCH 30.6 MCHC 31.8 L RDW 13.6 Plt Count 219 MPV 10.4 Immature Gran % (Auto) 0.8 H Neut % (Auto) 71.6 Lymph % (Auto) 12.9 L [place] % (Auto) 14.1 H Eos % (Auto) 0.3 Baso % (Auto) 0.3 Lymph # (Auto) 1.55 [place] # (Auto) 1.7 H Eos # (Auto) 0.0 Baso # (Auto) 0.0 Abs Immat Gran (auto) 0.10 H Absolute Neuts (auto) 8.6 H Absolute Nucleated RBC 0.000 Nucleated RBC % 0.0 Sodium 128 L Potassium 4.5 Chloride 96 L Carbon Dioxide 27 Anion Gap 5 BUN 44 H D Creatinine 1.67 H Estim Creat Clear Calc 22 Estimated GFR 29 L Glucose 94 Calcium 8.9 Urine Color Dark yellow Urine Appearance Cloudy H Urine pH 5.0 Ur Specific [place] 1.020 Urine Protein 1+ H Urine Glucose (UA) Negative Urine Ketones Trace H Ur Blood (Man) Negative Urine Nitrate Negative Urine Bilirubin 1+ H Urine Urobilinogen 1.0 Add Ur Microanalysis Reviewed Leukocyte Esterase Rfl 2+ H Urine RBC 0-2 Urine WBC 51-100 H Ur Squamous Epith Cells Few Urine Bacteria Rare Urine Casts >20
[2025-03-21] MEDS: SODIUM CHLORIDE 0.9% IV 1,000 ML 100 ML IV CONT ×2 (10:10→20:40)
--- NOTE | 2025-03-21 14:11 | P.PNAN_ITS ---
Anes - Prog Note Post-Op Date/Time: 03/21/25 14:11 Cardiovascular status: normal Respiratory status: normal Airway patency: baseline Mental status: baseline Post-Op hydration status: normal Vital Signs: Last Vital Signs Temp 98.3 F 03/21/25 12:32 Pulse 78 03/21/25 12:32 Resp 14 03/21/25 12:32 BP 120/79 03/21/25 12:32 Pulse Ox 99 03/21/25 12:32 O2 Del Method Nasal Cannula 03/21/25 11:12 O2 Flow Rate 3 03/21/25 11:12 FiO2 91 03/21/25 04:49 Pain Score (VAS): 0/10 I/O: Intake & Output 03/20/25 03/21/25 03/21/25 23:59 07:59 15:59 Intake Total 290 350 480 Balance 290 350 480 Laboratory Tests 03/21/25 06:05 03/21/25 06:05 03/20/25 03/21/25 16:06 06:05 WBC 12.0 H RBC 3.37 L Hgb 10.3 L Hct 32.4 L MCV 96.1 MCH 30.6 MCHC 31.8 L RDW 13.6 Plt Count 219 MPV 10.4 Immature Gran % (Auto) 0.8 H Neut % (Auto) 71.6 Lymph % (Auto) 12.9 L [place] % (Auto) 14.1 H Eos % (Auto) 0.3 Baso % (Auto) 0.3 Lymph # (Auto) 1.55 [place] # (Auto) 1.7 H Eos # (Auto) 0.0 Baso # (Auto) 0.0 Abs Immat Gran (auto) 0.10 H Absolute Neuts (auto) 8.6 H Absolute Nucleated RBC 0.000 Nucleated RBC % 0.0 Sodium 128 L Potassium 4.5 Chloride 96 L Carbon Dioxide 27 Anion Gap 5 BUN 44 H D Creatinine 1.67 H Estim Creat Clear Calc 22 Estimated GFR 29 L Glucose 94 Calcium 8.9 Urine Color Dark yellow Urine Appearance Cloudy H Urine pH 5.0 Ur Specific [place] 1.020 Urine Protein 1+ H Urine Glucose (UA) Negative Urine Ketones Trace H Ur Blood (Man) Negative Urine Nitrate Negative Urine Bilirubin 1+ H Urine Urobilinogen 1.0 Add Ur Microanalysis Reviewed Leukocyte Esterase Rfl 2+ H Urine RBC 0-2 Urine WBC 51-100 H Ur Squamous Epith Cells Few Urine Bacteria Rare Urine Casts >20 Post-procedural complaints: none Patient Feedback: Patient satisfied with anesthetic care.
[2025-03-21] MEDS: RIVAROXABAN 10 MG TABLET PO (17:11)
[2025-03-22] MEDS: HYDROcodone/acetaminophen (*CRX) 5-325 MG TABLET 1 TAB PO ×4 (00:19→20:25)
[2025-03-22] MEDS: MORPHINE SULFATE (*CRX) 4 MG/ML INJ 2 MG IV PUSH (04:04)
[2025-03-22] MEDS: ceFAZolin 2 GM in SODIUM CHLORIDE 0.9% IV 50 ML 100 ML IVPB ×3 (05:08→21:38)
[2025-03-22 07:47] LABS: Hematocrit 31.1 % (37.0-47.0); Hemoglobin 10.0 g/dL (12.0-15.0); Immature Granulocyte Percent A 0.8 % (0-0.5); Lymphocytes Absolute Auto 1.01 K/mm3 (0.9-3.2); Mean Corpuscular HGB Conc 32.2 g/dl (32-36); Mean Corpuscular Hemoglobin 31.3 pg (26-34); Mean Corpuscular Volume 97.2 fl (80-100); Nucleated Red Blood Cells Absolute Auto 0.000 K/mm3 (0.0-0.012); Nucleated Red Blood Cells Perc 0.0 % (0.0-0.2); Platelet Count Result 206 k/mm3 (150-375); Red Blood Count 3.20 M/mm3 (4.2-5.4); White Blood Count 9.9 K/mm3 (4.5-10.0)
[2025-03-22 08:00] VITALS: O2SAT 94
[2025-03-22 08:06] LABS: Alanine Aminotransferase 8 U/L (6-35); Albumin Level 3.2 g/dL (3.5-5.1); Alkaline Phosphatase 59 U/L (38-126); Anion Gap 4 mmol/L (4-12); Aspartate Amino Transferase 34 U/L (14-36); Bilirubin,Total 0.3 mg/dL (0.2-1.3); Blood Urea Nitrogen 38 mg/dL (7-17); Calcium 9.0 mg/dL (8.4-10.2); Carbon Dioxide 26 mmol/L (22-30); Chloride 102 mmol/L (98-107); Estimated CRCL calculation 29 ml/min; Estimated Glomerular Filt Rate 40; Glucose 91 mg/dL (65-110); Potassium 4.5 mmol/L (3.4-5.0); Sodium 132 mmol/L (137-145); Total Protein 5.7 g/dL (6.3-8.2)
[2025-03-22] MEDS: CELECOXIB 200 MG CAPSULE PO (09:32)
[2025-03-22] MEDS: ESCITALOPRAM OXALATE 10 MG TABLET 20 MG PO (09:32)
[2025-03-22] MEDS: VITAMIN B COMPLEX CAPSULE 1 CAP PO (09:32)
[2025-03-22] MEDS: hydroCHLOROthiazide 6.25 MG TABLET PO (09:32)
[2025-03-22] MEDS: CHOLECALCIFEROL (VITAMIN D3) 25 MCG (1,000 UNITS) TABLET PO (09:33)
[2025-03-22] MEDS: OMEGA 3 POLYUNSAT FATTY ACIDS 1 GM CAP PO (09:33)
--- NOTE | 2025-03-22 10:32 | PM.IMPN ---
Progress Note: A&P Assessment and Plan (1) Displaced intertrochanteric fracture of left femur: Qualifiers: Encounter type: initial encounter Fracture type: closed Qualified Code(s): S72.142A - Displaced intertrochanteric fracture of left femur, initial encounter for closed fracture Code(s): S72.142A - Displaced intertrochanteric fracture of left femur, initial encounter for closed fracture Status: Acute Assessment and Plan: Patient sustained a mechanical ground level fall due to a missed that point. Reported left hip pain and low back pain post fall. Unable to ambulate. Trauma workup included a head CT, C-spine CT, hip/pelvic XR, CXR, and lumbar spine CT. Imaging significant for a displaced comminuted left intertrochanteric fracture, no other acute findings. Patient admitted for surgical management of her intratrochanteric fracture. analgesics p.r.n.: Tylenol, [place], morphine bowel regimen p.r.n.: Doculax p.r.n., MiraLax p.r.n. antiemetic p.r.n. check UA, monitor CBC and BMP preop SCDs encourage IS will need PT/OT postop orthopedics consulted >> left hip trochanteric nail Post op 03/20/2025 Left hip trochanteric intramedullary nail fixation Per orthopedic recommendations Continue weight-bearing as tolerated Continue p.r.n. pain control DVT prophylaxis with several toe SCDs, encourage incentive spirometer Regular dressing changes -transition to Mepilex silver Needs further rehab per PT/OT - working with CC regarding placement (2) HTN (hypertension): Qualifiers: Hypertension type: primary hypertension Qualified Code(s): I10 - Essential (primary) hypertension Code(s): I10 - Essential (primary) hypertension Status: Chronic Assessment and Plan: chronic, currently 104/80, stable hold home medication(s) due to impending surgery, hydralazine p.r.n. ordered for BP greater than 180/90 monitor (3) COPD (chronic obstructive pulmonary disease): Qualifiers: COPD type: unspecified COPD Qualified Code(s): J44.9 - Chronic obstructive pulmonary disease, unspecified Code(s): J44.9 - Chronic obstructive pulmonary disease, unspecified Status: Chronic Assessment and Plan: No current evidence of exacerbation on exam. continue albuterol p.r.n. and fluticasone-salmeterol b.i.d. (4) ANDRES (acute kidney injury): Code(s): N17.9 - Acute kidney failure, unspecified Status: Acute Assessment and Plan: Creatinine: 0.76 -> 1.49 , BUN: 16 -> 34 IV Fluids: NS @ 100 mls/hr Trend renal function Trend electrolytes, correct as needed 03/22: Kidney function improving, Cr down from 1.67 -> 1.27 (5) UTI (urinary tract infection): Code(s): N39.0 - Urinary tract infection, site not specified Status: Acute Assessment and Plan: States that she is feeling she urinary pressure that she feels any time she gets a UTI UA: 1+ protein, trace ketones +bilirubin 2+ leukocyte esterase, 51-100 WBC UC obtained on 03/20 started on Cefazolin Continue to monitor urine cultures, WBC Culture shows no growth - will discontinue Cefazolin Plan Diet: Heart healthy, NPO midnight GI Prophylaxis: Protonix DVT Prophylaxis: SCDs IV fluids: NS @ 100 mls/hr Lines/Tubes: Peripheral IV Code Status: Full code Subjective Date/time seen: 03/22/25 10:32 Interval history: 85 y/o F with PMH of hypertension, SBO, asthma, vitamin-D deficiency, hyperlipidemia, depression, and COPD presents here with left hip pain due to a ground level fall. 03/22/2025 Patient resting comfortably in bed at time of examination. Urine culture shows no growth - will discontinue Cefazolin. Leukocytosis has resolved and kidney function improving. Hyponatremia also improving. She will require rehab stay - working with CC regarding placement. Review of Systems Review of Systems: All systems reviewed & are unremarkable except as noted in HPI and below Exam Const: General: no acute distress Other: , female, elderly, uncomfortable secondary to hip pain HENMT: Face/Nose/Sinus: Normal nares present Mouth: Yes moist mucous membranes Eyes: General: appearance normal, both eyes and all related structures Sclera: sclerae normal Pupils: Equal, round and reactive pupils present EOM: EOMs intact bilaterally Resp: Effort & Inspection: normal respiratory effort Auscultation: clear to auscultation bilaterally Cardio: Rate: regular rate Rhythm: regular rhythm Other: S1-S2 present without murmur, rub, ectopy GI: Other: Abdomen soft. Hernia noted to the right mid quadrant, chronic for patient. Normoactive bowel sounds in all quadrants. No tenderness on exam. Skin: General skin exam: normal color and no rashes or lesions noted Wounds: no wounds Neuro: Cranial nerves: Yes Equal, round and reactive pupils present Speech: normal speech Motor exam (neuro): 5/5 motor strength present throughout Sensory Exam: normal sensation Other: A&O x4 Extrem: Other: No peripheral edema. Extremities warm and dry. DP 2+ in the right lower extremity and 1+ in the left lower extremity. Psych: Mental Status: mental status grossly normal Affect: normal affect Other: Good insight and judgment, pleasant Objective Data Vital Signs Vital Signs: Vital Signs - 24 hr 03/21/25 11:06 03/21/25 11:12 03/21/25 12:32 Temperature 98.3 F Pulse Rate 78 Respiratory Rate 14 Blood Pressure 120/79 Pulse Oximetry 84 L 91 99 Oxygen Delivery Room Air Nasal Cannula Oxygen Flow Rate 3 03/21/25 16:32 03/21/25 20:00 Temperature 98.6 F Pulse Rate 79 Respiratory Rate 16 Blood Pressure 119/71 Pulse Oximetry 99 94 Oxygen Delivery Nasal Cannula Oxygen Flow Rate 3 Intake/Output Intake/Output: Intake & Output 03/19/25 03/20/25 03/21/25 03/22/25 23:59 23:59 23:59 23:59 Intake Total 351 073 4503 344 Output Total 0 Balance 543 588 1010 344 Meds/Results Medications: Active Medications Generic Name Dose Route Start Last Admin Trade Name Freq PRN Reason Stop Dose Admin Acetaminophen 650 mg 03/19/25 13:31 Acetaminophen 325 Mg Tablet PO Q4H PRN Mild Pain (1-3) or Fever Hydrocodone Bitart/Acetaminophen 1 tab 03/19/25 13:31 03/22/25 09:50 Hydrocodone/Acetaminophen (*Crx) 5-325 Mg Tablet PO 1 tab Q4H PRN Administration Moderate Pain (4-6) Albuterol 2 puff 03/21/25 13:50 Albuterol Sulfate (*Sp) Aerosol 1 Puff INHALATION Q4-6H PRN SHORT OF BREATH WHEEZING Benzonatate 100 mg 03/21/25 13:49 Benzonatate 100 Mg Capsule PO TID PRN Cough Bisacodyl 5 mg 03/19/25 13:31 Bisacodyl 5 Mg Tablet Ec PO DAILY PRN Constipation Celecoxib 200 mg 03/21/25 08:00 03/22/25 09:32 Celecoxib 200 Mg Capsule PO 200 mg DAILY@0800 [facility] Administration Escitalopram Oxalate 20 mg 03/21/25 09:00 03/22/25 09:32 Escitalopram Oxalate 10 Mg Tablet PO 20 mg DAILY FANG Administration Fish Oil 1 gm 03/22/25 09:00 03/22/25 09:33 [place] 3 Polyunsat Fatty Acids 1 Gm Cap PO 1 gm DAILY FANG Administration Hydralazine HCl 10 mg 03/19/25 13:50 Hydralazine Hcl 20 Mg/Ml Vial IV PUSH Q8H PRN Blood Pressure - High, >180/90 Hydrochlorothiazide 6.25 mg 03/21/25 09:00 03/22/25 09:32 Hydrochlorothiazide 6.25 Mg Tablet PO 6.25 mg QAM FANG Administration Hydromorphone HCl 0.5 mg 03/20/25 14:47 Hydromorphone Hcl Inj (*Crx) 1 Mg/Ml Syr IV PUSH Q2H PRN Breakthrough Pain Rated 4-6 or NPO Hydroxyzine Pamoate 50 mg 03/20/25 14:47 Hydroxyzine Pamoate 25 Mg Capsule PO Q4H PRN Itching Ibuprofen 800 mg in 200 mls @ 400 mls/hr 03/20/25 15:00 Caldolor 800 Mg/200 Ml IVPB Q6H PRN Breakthrough Pain Rated 1-3 or NPO Sodium Chloride 1,000 mls @ 100 mls/hr 03/21/25 07:30 03/22/25 04:08 Normal Saline Iv IV CONT Not Given .Q10H [facility] Cefazolin Sodium 2 gm/ Sodium 50 mls @ 100 mls/hr 03/21/25 22:00 03/22/25 05:08 Chloride IVPB 100 mls/hr Q8HR FANG Administration Lisinopril 5 mg 03/21/25 09:00 03/22/25 09:32 Lisinopril 5 Mg Tablet PO 5 mg QAM [facility] Administration Morphine Sulfate 2 mg 03/19/25 13:31 03/22/25 04:04 Morphine Sulfate (*Crx) 4 Mg/Ml Inj IV PUSH 2 mg Q4H PRN Administration Pain Rated 7-10 Naloxone HCl 0.1 mg 03/20/25 14:47 Naloxone Hcl 0.4 Mg/Ml Vial IV PUSH Q2M PRN Opiate Reversal Ondansetron HCl 4 mg 03/19/25 13:31 03/20/25 04:48 Ondansetron Inj 4 Mg/2 Ml Vial IV PUSH 4 mg Q6H PRN Administration Nausea And Vomiting Pantoprazole Sodium 40 mg 03/22/25 09:41 Pantoprazole 40 Mg Tablet PO Q12HR PRN Indigestion Polyethylene Glycol 17 gm 03/19/25 13:31 Polyethylene Glycol 3350 17 Gm Powd.Pack PO QAM PRN Constipation Polyethylene Glycol 17 gm 03/21/25 09:00 03/22/25 09:33 Polyethylene Glycol 3350 17 Gm Powd.Pack PO Not Given QAM [facility]ANG Rivaroxaban 10 mg 03/20/25 21:00 03/21/25 17:11 Rivaroxaban 10 Mg Tablet PO 10 mg DAILY@17 [facility] Administration Vitamin B Complex 1 cap 03/22/25 09:00 03/22/25 09:32 Vitamin B Complex Capsule PO 1 cap DAILY [facility]ANG Administration Vitamin D 25 mcg 03/21/25 09:00 03/22/25 09:33 Cholecalciferol (Vitamin D3) 25 Mcg (1,000 Units) Tablet PO 25 mcg DAILY [facility]ANG Administration Radiology Results: ITS Impressions Head CT 03/19/25 10:34 IMPRESSION: No acute brain findings. No significant abnormality is seen. All CT scans at this facility are performed using low dose modulation techniques as appropriate to perform exam including the following: automated exposure control; use of iterative reconstruction technique; adjustment of the mA and/or kV according to patient size (this includes techniques or standardized protocols for targeted exams where dose is matched to indication/reason for exam). Cervical Spine CT 03/19/25 10:38 IMPRESSION: 1. No acute findings. Hip/Pelvis X-Ray 03/19/25 10:44 Impression: Fractures detailed above Lumbar Spine CT 03/19/25 10:50 IMPRESSION: 1. Mild S-shaped scoliosis of the lumbar and lower thoracic spine with mild to moderate spondylosis. No acute osseous abnormality. Chest X-Ray 03/20/25 12:12 IMPRESSION: No acute findings. Intraoperative X-Ray 03/20/25 13:54 IMPRESSION: As above. See also operative/surgical notes for complete details. Labs Labs: Laboratory Results - last 24 hr 03/22/25 07:12 WBC 9.9 RBC 3.20 L Hgb 10.0 L Hct 31.1 L MCV 97.2 MCH 31.3 MCHC 32.2 RDW 13.3 Plt Count 206 MPV 10.5 H Immature Gran % (Auto) 0.8 H Neut % (Auto) 76.3 H Lymph % (Auto) 10.2 L [place] % (Auto) 11.3 H Eos % (Auto) 1.0 Baso % (Auto) 0.4 Lymph # (Auto) 1.01 [place] # (Auto) 1.1 H Eos # (Auto) 0.1 Baso # (Auto) 0.0 Abs Immat Gran (auto) 0.08 H Absolute Neuts (auto) 7.5 H Absolute Nucleated RBC 0.000 Nucleated RBC % 0.0 Sodium 132 L Potassium 4.5 Chloride 102 Carbon Dioxide 26 Anion Gap 4 BUN 38 H Creatinine 1.27 H Estim Creat Clear Calc 29 Estimated GFR 40 L Glucose 91 Calcium 9.0 Total Bilirubin 0.3 AST 34 ALT 8 Alkaline Phosphatase 59 Total Protein 5.7 L Albumin 3.2 L Quality VTE Prophylaxis VTE prophylaxis: mechanical ordered
[2025-03-22] MEDS: SODIUM CHLORIDE 0.9% IV 1,000 ML 100 ML IV CONT ×2 (13:31→21:42)
[2025-03-22 14:28] VITALS: O2SAT 92
[2025-03-22 14:55] VITALS: O2SAT 94
[2025-03-22] MEDS: RIVAROXABAN 10 MG TABLET PO (17:30)
[2025-03-22 20:00] VITALS: O2SAT 93
[2025-03-22 20:22] VITALS: O2SAT 93
[2025-03-22 23:20] VITALS: BP 107/77; PULSE 101; RESP 18; TEMP 37.2; O2SAT 94
[2025-03-23] VITALS (8 sets, daily range): BP systolic 130–148; BP diastolic 66–122; PULSE 95–100; RESP 14–18; TEMP 35.8–36.6; O2SAT 90–100
[2025-03-23] MEDS: HYDROcodone/acetaminophen (*CRX) 5-325 MG TABLET 1 TAB PO ×3 (02:33→21:05)
[2025-03-23] MEDS: MORPHINE SULFATE (*CRX) 4 MG/ML INJ 2 MG IV PUSH (05:28)
[2025-03-23] MEDS: ceFAZolin 2 GM in SODIUM CHLORIDE 0.9% IV 50 ML 100 ML IVPB (05:28)
[2025-03-23 06:35] LABS: Hematocrit 30.0 % (37.0-47.0); Hemoglobin 9.4 g/dL (12.0-15.0); Immature Granulocyte Percent A 0.8 % (0-0.5); Lymphocytes Absolute Auto 1.31 K/mm3 (0.9-3.2); Mean Corpuscular HGB Conc 31.3 g/dl (32-36); Mean Corpuscular Hemoglobin 31.3 pg (26-34); Mean Corpuscular Volume 100.0 fl (80-100); Nucleated Red Blood Cells Absolute Auto 0.000 K/mm3 (0.0-0.012); Nucleated Red Blood Cells Perc 0.0 % (0.0-0.2); Platelet Count Result 219 k/mm3 (150-375); Red Blood Count 3.00 M/mm3 (4.2-5.4); White Blood Count 9.2 K/mm3 (4.5-10.0)
[2025-03-23 06:49] LABS: Alanine Aminotransferase 6 U/L (6-35); Albumin Level 3.3 g/dL (3.5-5.1); Alkaline Phosphatase 64 U/L (38-126); Anion Gap 4 mmol/L (4-12); Aspartate Amino Transferase 27 U/L (14-36); Bilirubin,Total 0.6 mg/dL (0.2-1.3); Blood Urea Nitrogen 31 mg/dL (7-17); Calcium 9.0 mg/dL (8.4-10.2); Carbon Dioxide 25 mmol/L (22-30); Chloride 105 mmol/L (98-107); Estimated CRCL calculation 39 ml/min; Estimated Glomerular Filt Rate 58; Glucose 91 mg/dL (65-110); Sodium 134 mmol/L (137-145); Total Protein 5.9 g/dL (6.3-8.2)
[2025-03-23 06:54] LABS: Potassium 4.2 mmol/L (3.4-5.0)
--- NOTE | 2025-03-23 07:33 | P.PNIM_ITS ---
Progress Note: A&P Assessment and Plan (1) Displaced intertrochanteric fracture of left femur: Qualifiers: Encounter type: initial encounter Fracture type: closed Qualified Code(s): S72.142A - Displaced intertrochanteric fracture of left femur, initial encounter for closed fracture Code(s): S72.142A - Displaced intertrochanteric fracture of left femur, initial encounter for closed fracture Status: Acute Assessment and Plan: Patient sustained a mechanical ground level fall due to a missed that point. Reported left hip pain and low back pain post fall. Unable to ambulate. Trauma workup included a head CT, C-spine CT, hip/pelvic XR, CXR, and lumbar spine CT. Imaging significant for a displaced comminuted left intertrochanteric fracture, no other acute findings. Patient admitted for surgical management of her intratrochanteric fracture. * analgesics p.r.n.: Tylenol, [place], morphine * bowel regimen p.r.n.: Doculax p.r.n., MiraLax p.r.n. * antiemetic p.r.n. * check UA, monitor CBC and BMP preop * SCDs * encourage IS * will need PT/OT postop * orthopedics consulted >> left hip trochanteric nail * Post op 03/20/2025 Left hip trochanteric intramedullary nail fixation * Per orthopedic recommendations * Continue weight-bearing as tolerated * Continue p.r.n. pain control * DVT prophylaxis with several toe * SCDs, encourage incentive spirometer * Regular dressing changes -transition to Mepilex silver * Needs further rehab per PT/OT - working with [facility] regarding placement * [facility] accepted, pending auth (2) HTN (hypertension): Qualifiers: Hypertension type: primary hypertension Qualified Code(s): I10 - Essential (primary) hypertension Code(s): I10 - Essential (primary) hypertension Status: Chronic Assessment and Plan: * chronic, currently 104/80, stable * hold home medication(s) due to impending surgery, hydralazine p.r.n. ordered for BP greater than 180/90 * monitor (3) COPD (chronic obstructive pulmonary disease): Qualifiers: COPD type: unspecified COPD Qualified Code(s): J44.9 - Chronic obstructive pulmonary disease, unspecified Code(s): J44.9 - Chronic obstructive pulmonary disease, unspecified Status: Chronic Assessment and Plan: No current evidence of exacerbation on exam. * continue albuterol p.r.n. and fluticasone-salmeterol b.i.d. (4) ANDRES (acute kidney injury): Code(s): N17.9 - Acute kidney failure, unspecified Status: Resolved Assessment and Plan: * Creatinine: 0.76 -> 1.49 , BUN: 16 -> 34 * IV Fluids: NS @ 100 mls/hr * Trend renal function * Trend electrolytes, correct as needed * 03/22: Kidney function improving, Cr down from 1.67 -> 1.27 * Resolved (5) UTI (urinary tract infection): Code(s): N39.0 - Urinary tract infection, site not specified Status: Ruled-out Assessment and Plan: * States that she is feeling she urinary pressure that she feels any time she gets a UTI * UA: 1+ protein, trace ketones +bilirubin 2+ leukocyte esterase, 51-100 WBC * UC obtained on 03/20 * started on Cefazolin * Continue to monitor urine cultures, WBC * Culture shows no growth - will discontinue Cefazolin Plan Diet: Heart healthy, NPO midnight GI Prophylaxis: Protonix DVT Prophylaxis: SCDs IV fluids: NS @ 100 mls/hr Lines/Tubes: Peripheral IV Code Status: Full code Subjective Date/time seen: 03/23/25 07:33 Interval history: 85 y/o F with PMH of hypertension, SBO, asthma, vitamin-D deficiency, hyperlipidemia, depression, and COPD presents here with left hip pain due to a ground level fall. 03/23/2025 Patient resting comfortably at bedside at time of examination. Still endorsing some L hip discomfort but otherwise feels good at this time. Remains on 1L NC, o2 % 95%. Remains afebrile without leukocytosis. Has been accepted at [facility] also likely can also accept. Pending authorization. Review of Systems Review of Systems: All systems reviewed & are unremarkable except as noted in HPI and below Exam Const: General: no acute distress Other: , female, elderly, uncomfortable secondary to hip pain HENMT: Face/Nose/Sinus: Normal nares present Mouth: Yes moist mucous membranes Eyes: General: appearance normal, both eyes and all related structures Sclera: sclerae normal Pupils: Equal, round and reactive pupils present EOM: EOMs intact bilaterally Resp: Effort & Inspection: normal respiratory effort Auscultation: clear to auscultation bilaterally Cardio: Rate: regular rate Rhythm: regular rhythm Other: S1-S2 present without murmur, rub, ectopy GI: Other: Abdomen soft. Hernia noted to the right mid quadrant, chronic for patient. Normoactive bowel sounds in all quadrants. No tenderness on exam. Skin: General skin exam: normal color and no rashes or lesions noted Wounds: no wounds Neuro: Cranial nerves: Yes Equal, round and reactive pupils present Speech: normal speech Motor exam (neuro): 5/5 motor strength present throughout Sensory Exam: normal sensation Other: A&O x4 Extrem: Other: No peripheral edema. Extremities warm and dry. DP 2+ in the right lower extremity and 1+ in the left lower extremity. Psych: Mental Status: mental status grossly normal Affect: normal affect Other: Good insight and judgment, pleasant Objective Data Vital Signs Vital Signs: Vital Signs - 24 hr 03/22/25 08:00 03/22/25 14:28 03/22/25 14:55 Temperature Pulse Rate Respiratory Rate Blood Pressure Pulse Oximetry 94 92 94 Oxygen Delivery Nasal Cannula Nasal Cannula Nasal Cannula Oxygen Flow Rate 3 2.5 2.5 03/22/25 20:00 03/22/25 20:22 03/22/25 23:20 Temperature 98.9 F Pulse Rate 101 H Respiratory Rate 18 Blood Pressure 107/77 Pulse Oximetry 93 93 94 Oxygen Delivery Nasal Cannula Nasal Cannula Oxygen Flow Rate 2 1 Intake/Output Intake/Output: Intake & Output 03/20/25 03/21/25 03/22/25 03/23/25 23:59 23:59 23:59 23:59 Intake Total 390 2120 2896.3 Output Total 0 Balance 390 2120 2896.3 Meds/Results Medications: Active Medications Generic Name Dose Route Start Last Admin Trade Name Freq PRN Reason Stop Dose Admin Acetaminophen 650 mg 03/19/25 13:31 Acetaminophen 325 Mg Tablet PO Q4H PRN Mild Pain (1-3) or Fever Hydrocodone Bitart/Acetaminophen 1 tab 03/19/25 13:31 03/23/25 02:33 Hydrocodone/Acetaminophen (*Crx) 5-325 Mg Tablet PO 1 tab Q4H PRN Administration Moderate Pain (4-6) Albuterol 2 puff 03/21/25 13:50 Albuterol Sulfate (*Sp) Aerosol 1 Puff INHALATION Q4-6H PRN SHORT OF BREATH WHEEZING Benzonatate 100 mg 03/21/25 13:49 Benzonatate 100 Mg Capsule PO TID PRN Cough Bisacodyl 5 mg 03/19/25 13:31 Bisacodyl 5 Mg Tablet Ec PO DAILY PRN Constipation Celecoxib 200 mg 03/21/25 08:00 03/22/25 09:32 Celecoxib 200 Mg Capsule PO 200 mg DAILY@0800 FANG Administration Escitalopram Oxalate 20 mg 03/21/25 09:00 03/22/25 09:32 Escitalopram Oxalate 10 Mg Tablet PO 20 mg DAILY FANG Administration Fish Oil 1 gm 03/22/25 09:00 03/22/25 09:33 [place] 3 Polyunsat Fatty Acids 1 Gm Cap PO 1 gm DAILY FANG Administration Hydralazine HCl 10 mg 03/19/25 13:50 Hydralazine Hcl 20 Mg/Ml Vial IV PUSH Q8H PRN Blood Pressure - High, >180/90 Hydrochlorothiazide 6.25 mg 03/21/25 09:00 03/22/25 09:32 Hydrochlorothiazide 6.25 Mg Tablet PO 6.25 mg QAM FANG Administration Hydromorphone HCl 0.5 mg 03/20/25 14:47 Hydromorphone Hcl Inj (*Crx) 1 Mg/Ml Syr IV PUSH Q2H PRN Breakthrough Pain Rated 4-6 or NPO Hydroxyzine Pamoate 50 mg 03/20/25 14:47 Hydroxyzine Pamoate 25 Mg Capsule PO Q4H PRN Itching Ibuprofen 800 mg in 200 mls @ 400 mls/hr 03/20/25 15:00 Caldolor 800 Mg/200 Ml IVPB Q6H PRN Breakthrough Pain Rated 1-3 or NPO Sodium Chloride 1,000 mls @ 100 mls/hr 03/21/25 07:30 03/22/25 21:42 Normal Saline Iv IV CONT 100 mls/hr .Q10H FANG Administration Cefazolin Sodium 2 gm/ Sodium 50 mls @ 100 mls/hr 03/21/25 22:00 03/23/25 05:28 Chloride IVPB 100 mls/hr Q8HR FANG Administration Lisinopril 5 mg 03/21/25 09:00 03/22/25 09:32 Lisinopril 5 Mg Tablet PO 5 mg QAM FANG Administration Morphine Sulfate 2 mg 03/19/25 13:31 03/23/25 05:28 Morphine Sulfate (*Crx) 4 Mg/Ml Inj IV PUSH 2 mg Q4H PRN Administration Pain Rated 7-10 Naloxone HCl 0.1 mg 03/20/25 14:47 Naloxone Hcl 0.4 Mg/Ml Vial IV PUSH Q2M PRN Opiate Reversal Ondansetron HCl 4 mg 03/19/25 13:31 03/20/25 04:48 Ondansetron Inj 4 Mg/2 Ml Vial IV PUSH 4 mg Q6H PRN Administration Nausea And Vomiting Pantoprazole Sodium 40 mg 03/22/25 09:41 Pantoprazole 40 Mg Tablet PO Q12HR PRN Indigestion Polyethylene Glycol 17 gm 03/19/25 13:31 Polyethylene Glycol 3350 17 Gm Powd.Pack PO QAM PRN Constipation Polyethylene Glycol 17 gm 03/21/25 09:00 03/22/25 09:33 Polyethylene Glycol 3350 17 Gm Powd.Pack PO Not Given QAM FANG Rivaroxaban 10 mg 03/20/25 21:00 03/22/25 17:30 Rivaroxaban 10 Mg Tablet PO 10 mg DAILY@17 FANG Administration Vitamin B Complex 1 cap 03/22/25 09:00 03/22/25 09:32 Vitamin B Complex Capsule PO 1 cap DAILY FANG Administration Vitamin D 25 mcg 03/21/25 09:00 03/22/25 09:33 Cholecalciferol (Vitamin D3) 25 Mcg (1,000 Units) Tablet PO 25 mcg DAILY [facility] Administration Radiology Results: ITS Impressions Head CT 03/19/25 10:34 IMPRESSION: No acute brain findings. No significant abnormality is seen. All CT scans at this facility are performed using low dose modulation techniq ues as appropriate to perform exam including the following: automated exposure control; use of iterative reconstruction technique; adjustment of the mA and/or kV according to patient size (this includes techniques or standardized protocols for targeted exams where dose is matched to indication/reason for exam). Cervical Spine CT 03/19/25 10:38 IMPRESSION: 1. No acute findings. Hip/Pelvis X-Ray 03/19/25 10:44 Impression: Fractures detailed above Lumbar Spine CT 03/19/25 10:50 IMPRESSION: 1. Mild S-shaped scoliosis of the lumbar and lower thoracic spine with mild to moderate spondylosis. No acute osseous abnormality. Chest X-Ray 03/20/25 12:12 IMPRESSION: No acute findings. Intraoperative X-Ray 03/20/25 13:54 IMPRESSION: As above. See also operative/surgical notes for complete details. Labs Labs: Laboratory Results - last 24 hr 03/22/25 03/23/25 07:12 06:09 WBC 9.9 9.2 RBC 3.20 L 3.00 L Hgb 10.0 L 9.4 L Hct 31.1 L 30.0 L MCV 97.2 100.0 MCH 31.3 31.3 MCHC 32.2 31.3 L RDW 13.3 13.5 Plt Count 206 219 MPV 10.5 H 10.2 Immature Gran % (Auto) 0.8 H 0.8 H Neut % (Auto) 76.3 H 71.2 Lymph % (Auto) 10.2 L 14.2 L [place] % (Auto) 11.3 H 10.7 H Eos % (Auto) 1.0 2.5 Baso % (Auto) 0.4 0.6 Lymph # (Auto) 1.01 1.31 [place] # (Auto) 1.1 H 1.0 H Eos # (Auto) 0.1 0.2 Baso # (Auto) 0.0 0.1 Abs Immat Gran (auto) 0.08 H 0.07 H Absolute Neuts (auto) 7.5 H 6.6 Absolute Nucleated RBC 0.000 0.000 Nucleated RBC % 0.0 0.0 Sodium 132 L 134 L Potassium 4.5 4.2 Chloride 102 105 Carbon Dioxide 26 25 Anion Gap 4 4 BUN 38 H 31 H Creatinine 1.27 H 0.92 Estim Creat Clear Calc 29 39 Estimated GFR 40 L 58 L Glucose 91 91 Calcium 9.0 9.0 Total Bilirubin 0.3 0.6 AST 34 27 ALT 8 6 Alkaline Phosphatase 59 64 Total Protein 5.7 L 5.9 L Albumin 3.2 L 3.3 L Quality VTE Prophylaxis VTE prophylaxis: mechanical ordered
[2025-03-23] MEDS: OMEGA 3 POLYUNSAT FATTY ACIDS 1 GM CAP PO (08:40)
[2025-03-23] MEDS: VITAMIN B COMPLEX CAPSULE 1 CAP PO (08:40)
[2025-03-23] MEDS: hydroCHLOROthiazide 6.25 MG TABLET PO (08:40)
[2025-03-23] MEDS: ESCITALOPRAM OXALATE 10 MG TABLET 20 MG PO (08:40)
[2025-03-23] MEDS: CELECOXIB 200 MG CAPSULE PO (08:40)
[2025-03-23] MEDS: CHOLECALCIFEROL (VITAMIN D3) 25 MCG (1,000 UNITS) TABLET PO (08:40)
[2025-03-23] MEDS: SODIUM CHLORIDE 0.9% IV 1,000 ML 100 ML IV CONT (08:46)
[2025-03-23] MEDS: RIVAROXABAN 10 MG TABLET PO (16:13)
[2025-03-23] MEDS: NICOTINE (*PBKC) 7 MG PATCH 1 PATCH TRANSDERM (21:04)
[2025-03-24 05:01] VITALS: BP 161/93; PULSE 107; RESP 15; TEMP 36.7; O2SAT 88
[2025-03-24 08:00] VITALS: O2SAT 93
[2025-03-24 09:00] LABS: Hematocrit 31.1 % (37.0-47.0); Hemoglobin 9.9 g/dL (12.0-15.0); Immature Granulocyte Percent A 1.2 % (0-0.5); Lymphocytes Absolute Auto 1.48 K/mm3 (0.9-3.2); Mean Corpuscular HGB Conc 31.8 g/dl (32-36); Mean Corpuscular Hemoglobin 31.1 pg (26-34); Mean Corpuscular Volume 97.8 fl (80-100); Nucleated Red Blood Cells Absolute Auto 0.000 K/mm3 (0.0-0.012); Nucleated Red Blood Cells Perc 0.0 % (0.0-0.2); Platelet Count Result 283 k/mm3 (150-375); Red Blood Count 3.18 M/mm3 (4.2-5.4); White Blood Count 10.4 K/mm3 (4.5-10.0)
[2025-03-24 09:21] LABS: Alanine Aminotransferase 8 U/L (6-35); Albumin Level 3.4 g/dL (3.5-5.1); Alkaline Phosphatase 67 U/L (38-126); Anion Gap 2 mmol/L (4-12); Aspartate Amino Transferase 30 U/L (14-36); Bilirubin,Total 1.0 mg/dL (0.2-1.3); Blood Urea Nitrogen 25 mg/dL (7-17); Calcium 9.7 mg/dL (8.4-10.2); Carbon Dioxide 32 mmol/L (22-30); Chloride 101 mmol/L (98-107); Estimated CRCL calculation 42 ml/min; Estimated Glomerular Filt Rate > 60; Glucose 109 mg/dL (65-110); Potassium 4.1 mmol/L (3.4-5.0); Sodium 135 mmol/L (137-145); Total Protein 6.2 g/dL (6.3-8.2)
[2025-03-24] MEDS: HYDROcodone/acetaminophen (*CRX) 5-325 MG TABLET 1 TAB PO ×3 (09:38→20:51)
[2025-03-24] MEDS: ESCITALOPRAM OXALATE 10 MG TABLET 20 MG PO (09:38)
[2025-03-24] MEDS: VITAMIN B COMPLEX CAPSULE 1 CAP PO (09:38)
[2025-03-24] MEDS: hydroCHLOROthiazide 6.25 MG TABLET PO (09:38)
[2025-03-24] MEDS: CELECOXIB 200 MG CAPSULE PO (09:39)
[2025-03-24] MEDS: NICOTINE (*PBKC) 7 MG PATCH 1 PATCH TRANSDERM (09:39)
[2025-03-24] MEDS: CHOLECALCIFEROL (VITAMIN D3) 25 MCG (1,000 UNITS) TABLET PO (09:39)
[2025-03-24] MEDS: BENZONATATE 100 MG CAPSULE PO ×2 (09:39→16:14)
[2025-03-24] MEDS: OMEGA 3 POLYUNSAT FATTY ACIDS 1 GM CAP PO (09:40)
[2025-03-24 13:47] VITALS: BP 151/81; PULSE 104; RESP 16; TEMP 36.1; O2SAT 90
--- NOTE | 2025-03-24 14:13 | P.PNIM_ITS ---
Progress Note: A&P Assessment and Plan (1) Displaced intertrochanteric fracture of left femur: Qualifiers: Encounter type: initial encounter Fracture type: closed Qualified Code(s): S72.142A - Displaced intertrochanteric fracture of left femur, initial encounter for closed fracture Code(s): S72.142A - Displaced intertrochanteric fracture of left femur, initial encounter for closed fracture Status: Acute Assessment and Plan: Patient sustained a mechanical ground level fall due to a missed that point. Reported left hip pain and low back pain post fall. Unable to ambulate. Trauma workup included a head CT, C-spine CT, hip/pelvic XR, CXR, and lumbar spine CT. Imaging significant for a displaced comminuted left intertrochanteric fracture, no other acute findings. Patient admitted for surgical management of her intratrochanteric fracture. * analgesics p.r.n.: Tylenol, [place], morphine * bowel regimen p.r.n.: Doculax p.r.n., MiraLax p.r.n. * antiemetic p.r.n. * check UA, monitor CBC and BMP preop * SCDs * encourage IS * will need PT/OT postop * orthopedics consulted >> left hip trochanteric nail * Post op 03/20/2025 Left hip trochanteric intramedullary nail fixation * Per orthopedic recommendations * Continue weight-bearing as tolerated * Continue p.r.n. pain control * DVT prophylaxis with several toe * SCDs, encourage incentive spirometer * Regular dressing changes -transition to Mepilex silver * Needs further rehab per PT/OT - working with [facility] regarding placement * [facility] accepted, pending auth (2) HTN (hypertension): Qualifiers: Hypertension type: primary hypertension Qualified Code(s): I10 - Essential (primary) hypertension Code(s): I10 - Essential (primary) hypertension Status: Chronic Assessment and Plan: * chronic, currently 104/80, stable * hold home medication(s) due to impending surgery, hydralazine p.r.n. ordered for BP greater than 180/90 * monitor (3) COPD (chronic obstructive pulmonary disease): Qualifiers: COPD type: unspecified COPD Qualified Code(s): J44.9 - Chronic obstructive pulmonary disease, unspecified Code(s): J44.9 - Chronic obstructive pulmonary disease, unspecified Status: Chronic Assessment and Plan: No current evidence of exacerbation on exam. * continue albuterol p.r.n. and fluticasone-salmeterol b.i.d. (4) ANDRES (acute kidney injury): Code(s): N17.9 - Acute kidney failure, unspecified Status: Resolved Assessment and Plan: * Creatinine: 0.76 -> 1.49 , BUN: 16 -> 34 * IV Fluids: NS @ 100 mls/hr * Trend renal function * Trend electrolytes, correct as needed * 03/22: Kidney function improving, Cr down from 1.67 -> 1.27 * Resolved (5) UTI (urinary tract infection): Code(s): N39.0 - Urinary tract infection, site not specified Status: Ruled-out Assessment and Plan: * States that she is feeling she urinary pressure that she feels any time she gets a UTI * UA: 1+ protein, trace ketones +bilirubin 2+ leukocyte esterase, 51-100 WBC * UC obtained on 03/20 * started on Cefazolin * Continue to monitor urine cultures, WBC * Culture shows no growth - will discontinue Cefazolin Plan Diet: Heart healthy, NPO midnight GI Prophylaxis: Protonix DVT Prophylaxis: SCDs IV fluids: NS @ 100 mls/hr Lines/Tubes: Peripheral IV Code Status: Full code Subjective Date/time seen: 03/24/25 14:13 Interval history: 85 y/o F with PMH of hypertension, SBO, asthma, vitamin-D deficiency, hyperlipidemia, depression, and COPD presents here with left hip pain due to a ground level fall. 03/24/2025 Patient resting comfortably at bedside at time of examination. Patient feeling well today, however remains sore in the L hip. Pending approval for discharge to [facility]. Pt is otherwise hemodynamically stable. Review of Systems Review of Systems: All systems reviewed & are unremarkable except as noted in HPI and below Exam Const: General: no acute distress Other: , female, elderly, uncomfortable secondary to hip pain HENMT: Face/Nose/Sinus: Normal nares present Mouth: Yes moist mucous membranes Eyes: General: appearance normal, both eyes and all related structures Sclera: sclerae normal Pupils: Equal, round and reactive pupils present EOM: EOMs intact bilaterally Resp: Effort & Inspection: normal respiratory effort Auscultation: clear to auscultation bilaterally Cardio: Rate: regular rate Rhythm: regular rhythm Other: S1-S2 present without murmur, rub, ectopy GI: Other: Abdomen soft. Hernia noted to the right mid quadrant, chronic for patient. Normoactive bowel sounds in all quadrants. No tenderness on exam. Skin: General skin exam: normal color and no rashes or lesions noted Wounds: no wounds Neuro: Cranial nerves: Yes Equal, round and reactive pupils present Speech: normal speech Motor exam (neuro): 5/5 motor strength present throughout Sensory Exam: normal sensation Other: A&O x4 Extrem: Other: No peripheral edema. Extremities warm and dry. DP 2+ in the right lower extremity and 1+ in the left lower extremity. Psych: Mental Status: mental status grossly normal Affect: normal affect Other: Good insight and judgment, pleasant Objective Data Vital Signs Vital Signs: Vital Signs - 24 hr 03/23/25 20:55 03/24/25 05:01 03/24/25 08:00 Temperature 97.8 F 98.1 F Pulse Rate 99 107 H Respiratory Rate 16 15 Blood Pressure 135/69 161/93 H Pulse Oximetry 90 88 L 93 Oxygen Delivery Nasal Cannula Oxygen Flow Rate 1 03/24/25 13:47 Temperature 97.0 F L Pulse Rate 104 H Respiratory Rate 16 Blood Pressure 151/81 H Pulse Oximetry 90 Oxygen Delivery Oxygen Flow Rate Intake/Output Intake/Output: Intake & Output 03/21/25 03/22/25 03/23/25 03/24/25 23:59 23:59 23:59 23:59 Intake Total 0 2896.3 1790 480 Balance 2119 2896.3 1790 480 Meds/Results Medications: Active Medications Generic Name Dose Route Start Last Admin Trade Name Freq PRN Reason Stop Dose Admin Acetaminophen 650 mg 03/19/25 13:31 Acetaminophen 325 Mg Tablet PO Q4H PRN Mild Pain (1-3) or Fever Hydrocodone Bitart/Acetaminophen 1 tab 03/19/25 13:31 03/24/25 09:38 Hydrocodone/Acetaminophen (*Crx) 5-325 Mg Tablet PO 1 tab Q4H PRN Administration Moderate Pain (4-6) Albuterol 2 puff 03/21/25 13:50 Albuterol Sulfate (*Sp) Aerosol 1 Puff INHALATION Q4-6H PRN SHORT OF BREATH WHEEZING Benzonatate 100 mg 03/21/25 13:49 03/24/25 09:39 Benzonatate 100 Mg Capsule PO 100 mg TID PRN Administration Cough Bisacodyl 5 mg 03/19/25 13:31 Bisacodyl 5 Mg Tablet Ec PO DAILY PRN Constipation Celecoxib 200 mg 03/21/25 08:00 03/24/25 09:39 Celecoxib 200 Mg Capsule PO 200 mg DAILY@0800 FANG Administration Escitalopram Oxalate 20 mg 03/21/25 09:00 03/24/25 09:38 Escitalopram Oxalate 10 Mg Tablet PO 20 mg DAILY FANG Administration Fish Oil 1 gm 03/22/25 09:00 03/24/25 09:40 [place] 3 Polyunsat Fatty Acids 1 Gm Cap PO 1 gm DAILY FANG Administration Hydralazine HCl 10 mg 03/19/25 13:50 Hydralazine Hcl 20 Mg/Ml Vial IV PUSH Q8H PRN Blood Pressure - High, >180/90 Hydrochlorothiazide 6.25 mg 03/21/25 09:00 03/24/25 09:38 Hydrochlorothiazide 6.25 Mg Tablet PO 6.25 mg QAM [facility] Administration Hydromorphone HCl 0.5 mg 03/20/25 14:47 Hydromorphone Hcl Inj (*Crx) 1 Mg/Ml Syr IV PUSH Q2H PRN Breakthrough Pain Rated 4-6 or NPO Hydroxyzine Pamoate 50 mg 03/20/25 14:47 Hydroxyzine Pamoate 25 Mg Capsule PO Q4H PRN Itching Ibuprofen 800 mg in 200 mls @ 400 mls/hr 03/20/25 15:00 Caldolor 800 Mg/200 Ml IVPB Q6H PRN Breakthrough Pain Rated 1-3 or NPO Lisinopril 5 mg 03/21/25 09:00 03/24/25 09:38 Lisinopril 5 Mg Tablet PO 5 mg QAM [facility] Administration Morphine Sulfate 2 mg 03/19/25 13:31 03/23/25 05:28 Morphine Sulfate (*Crx) 4 Mg/Ml Inj IV PUSH 2 mg Q4H PRN Administration Pain Rated 7-10 Naloxone HCl 0.1 mg 03/20/25 14:47 Naloxone Hcl 0.4 Mg/Ml Vial IV PUSH Q2M PRN Opiate Reversal Nicotine 1 patch 03/23/25 20:35 03/24/25 09:39 Nicotine (*Pbkc) 7 Mg Patch TRANSDERM 1 patch DAILY FANG Administration Ondansetron HCl 4 mg 03/19/25 13:31 03/20/25 04:48 Ondansetron Inj 4 Mg/2 Ml Vial IV PUSH 4 mg Q6H PRN Administration Nausea And Vomiting Pantoprazole Sodium 40 mg 03/22/25 09:41 Pantoprazole 40 Mg Tablet PO Q12HR PRN Indigestion Polyethylene Glycol 17 gm 03/19/25 13:31 Polyethylene Glycol 3350 17 Gm Powd.Pack PO QAM PRN Constipation Polyethylene Glycol 17 gm 03/21/25 09:00 03/24/25 09:40 Polyethylene Glycol 3350 17 Gm Powd.Pack PO 17 gm QAM FANG Administration Rivaroxaban 10 mg 03/20/25 21:00 03/23/25 16:13 Rivaroxaban 10 Mg Tablet PO 10 mg DAILY@17 FANG Administration Vitamin B Complex 1 cap 03/22/25 09:00 03/24/25 09:38 Vitamin B Complex Capsule PO 1 cap DAILY FANG Administration Vitamin D 25 mcg 03/21/25 09:00 03/24/25 09:39 Cholecalciferol (Vitamin D3) 25 Mcg (1,000 Units) Tablet PO 25 mcg DAILY FANG Administration Radiology Results: ITS Impressions Head CT 03/19/25 10:34 IMPRESSION: No acute brain findings. No significant abnormality is seen. All CT scans at this facility are performed using low dose modulation techniques as appropriate to perform exam including the following: automated exposure control; use of iterative reconstruction technique; adjustment of the mA and/or kV according to patient size (this includes techniques or standardized protocols for targeted exams where dose is matched to indication/reason for exam). Cervical Spine CT 03/19/25 10:38 IMPRESSION: 1. No acute findings. Hip/Pelvis X-Ray 03/19/25 10:44 Impression: Fractures detailed above Lumbar Spine CT 03/19/25 10:50 IMPRESSION: 1. Mild S-shaped scoliosis of the lumbar and lower thoracic spine with mild to moderate spondylosis. No acute osseous abnormality. Chest X-Ray 03/20/25 12:12 IMPRESSION: No acute findings. Intraoperative X-Ray 03/20/25 13:54 IMPRESSION: As above. See also operative/surgical notes for complete details. Labs Labs: Laboratory Results - last 24 hr 03/24/25 08:47 WBC 10.4 H RBC 3.18 L Hgb 9.9 L Hct 31.1 L MCV 97.8 MCH 31.1 MCHC 31.8 L RDW 13.3 Plt Count 283 MPV 10.0 Immature Gran % (Auto) 1.2 H Neut % (Auto) 71.3 Lymph % (Auto) 14.3 L [place] % (Auto) 10.4 H Eos % (Auto) 2.3 Baso % (Auto) 0.5 Lymph # (Auto) 1.48 [place] # (Auto) 1.1 H Eos # (Auto) 0.2 Baso # (Auto) 0.1 Abs Immat Gran (auto) 0.12 H Absolute Neuts (auto) 7.4 H Absolute Nucleated RBC 0.000 Nucleated RBC % 0.0 Sodium 135 L Potassium 4.1 Chloride 101 Carbon Dioxide 32 H Anion Gap 2 L BUN 25 H Creatinine 0.85 Estim Creat Clear Calc 42 Estimated GFR > 60 Glucose 109 Calcium 9.7 Total Bilirubin 1.0 AST 30 ALT 8 Alkaline Phosphatase 67 Total Protein 6.2 L Albumin 3.4 L Quality VTE Prophylaxis VTE prophylaxis: mechanical ordered
--- NOTE | 2025-03-24 15:28 | PM.PNORT ---
Progress Note: A&P Assessment and Plan (1) Displaced intertrochanteric fracture of left femur: Qualifiers: Encounter type: initial encounter Fracture type: closed Qualified Code(s): S72.142A - Displaced intertrochanteric fracture of left femur, initial encounter for closed fracture Code(s): S72.142A - Displaced intertrochanteric fracture of left femur, initial encounter for closed fracture Status: Acute Assessment and Plan: POD #4: Left hip trochanteric intramedullary nail fixation Continue PT/OT. WBAT. Walker. HIGH FALL RISK. Continue pain control. Ice Hip. Protect skin. DVT prophylaxis with Xarelto. SCDs. Incentive Spirometry Use reviewed and encouraged. Monitor Dressing. Change daily. Bowel Regimen. Dispo: [facility] pending progress with PT/OT Plan Reviewed history, exam, radiographs and current labs with attending MD and covering surgeon, Dr. Velez, who agrees with current plan as indicated above. No further recommendations from Dr. Velez at this time. Subjective Subjective Date/Time Seen: 03/24/25 15:28 Post Op day: 2 Interval history: POD #2: Left hip trochanteric intramedullary nail fixation Patient doing well. Pain well controlled. Review of Systems Constitutional: Constitutional: Denies chills, Denies fatigue, Denies fever(s), Denies night sweats and Denies weakness Cardiovascular: Cardiovascular: Denies chest pain, Denies lightheadedness, Denies palpitations and Denies dyspnea Respiratory: Respiratory: Denies cough, Denies dyspnea and Denies wheezing Gastrointestinal: Gastrointestinal: Denies abdominal pain, Denies diarrhea, Denies nausea and Denies vomiting Musculoskeletal: Musculoskeletal: Reports arthralgias (left hip ), Reports joint swelling (left hip ) and Denies numbness Neurologic: Denies numbness and Denies weakness Endocrine: Endocrine: Denies fatigue and Denies palpitations Allergic/Immunologic: Allergic/Immunologic: Denies wheezing Exam Const: General: comfortable and no acute distress Orientation/consciousness: patient oriented x3 Limitations: no limitations Resp: Effort & Inspection: normal respiratory effort Cardio: Rate: regular rate Rhythm: regular rhythm GI: Inspection: non-distended Skin: General skin exam: normal color and wounds noted (incision left hip C/D/I ) Wounds: wounds noted (incision left hip C/D/I ) Neuro: General: patient oriented x3 Extrem: Left lower extremity: hip/thigh Details: tenderness Location: of the hip Location: laterally and anteriorly, swelling (thigh soft ) Location: of the hip (lateral. ), abnormal ROM (limitations with internal/external rotation and flexion/extension due to recent surgical intervention ) and other (incision lateral hip c/d/i. ), knee Details: normal to inspection and normal ROM; no tenderness and no swelling, lower leg (Negative Humberto's Sign ) Details: no edema, ankle (+ankle dorsiflexion/plantarflexion ) Details: normal to inspection, no edema and normal ROM; no tenderness, no swelling and no warmth and foot Details: normal capillary refill, toes with normal ROM, vascular exam Details: dorsalis pedis pulse present and motor-sensory exam light-touch normal in all toes; no tenderness, no ecchymosis and no crepitus Psych: Mental Status: mental status grossly normal Affect: normal affect Objective Data Vital Signs Vital Signs: Vital Signs - 24 hr 03/23/25 20:55 03/24/25 05:01 03/24/25 08:00 Temperature 36.6 C 36.7 C Pulse Rate 99 107 H Respiratory Rate 16 15 Blood Pressure 135/69 161/93 H Pulse Oximetry 90 88 L 93 Oxygen Delivery Nasal Cannula Oxygen Flow Rate 1 03/24/25 13:47 Temperature 36.1 C L Pulse Rate 104 H Respiratory Rate 16 Blood Pressure 151/81 H Pulse Oximetry 90 Oxygen Delivery Oxygen Flow Rate Intake/Output Intake/Output: Intake & Output 03/21/25 03/22/25 03/23/25 03/24/25 23:59 23:59 23:59 23:59 Intake Total 0 2896.3 1790 480 Balance 0 2896.3 1790 480 Meds/Results Medications: Active Medications Generic Name Dose Route Start Last Admin Trade Name Freq PRN Reason Stop Dose Admin Acetaminophen 650 mg 03/19/25 13:31 Acetaminophen 325 Mg Tablet PO Q4H PRN Mild Pain (1-3) or Fever Hydrocodone Bitart/Acetaminophen 1 tab 03/19/25 13:31 03/24/25 09:38 Hydrocodone/Acetaminophen (*Crx) 5-325 Mg Tablet PO 1 tab Q4H PRN Administration Moderate Pain (4-6) Albuterol 2 puff 03/21/25 13:50 Albuterol Sulfate (*Sp) Aerosol 1 Puff INHALATION Q4-6H PRN SHORT OF BREATH WHEEZING Benzonatate 100 mg 03/21/25 13:49 03/24/25 09:39 Benzonatate 100 Mg Capsule PO 100 mg TID PRN Administration Cough Bisacodyl 5 mg 03/19/25 13:31 Bisacodyl 5 Mg Tablet Ec PO DAILY PRN Constipation Celecoxib 200 mg 03/21/25 08:00 03/24/25 09:39 Celecoxib 200 Mg Capsule PO 200 mg DAILY@0800 FANG Administration Escitalopram Oxalate 20 mg 03/21/25 09:00 03/24/25 09:38 Escitalopram Oxalate 10 Mg Tablet PO 20 mg DAILY FANG Administration Fish Oil 1 gm 03/22/25 09:00 03/24/25 09:40 [place] 3 Polyunsat Fatty Acids 1 Gm Cap PO 1 gm DAILY FANG Administration Hydralazine HCl 10 mg 03/19/25 13:50 Hydralazine Hcl 20 Mg/Ml Vial IV PUSH Q8H PRN Blood Pressure - High, >180/90 Hydrochlorothiazide 6.25 mg 03/21/25 09:00 03/24/25 09:38 Hydrochlorothiazide 6.25 Mg Tablet PO 6.25 mg QAM [facility] Administration Hydromorphone HCl 0.5 mg 03/20/25 14:47 Hydromorphone Hcl Inj (*Crx) 1 Mg/Ml Syr IV PUSH Q2H PRN Breakthrough Pain Rated 4-6 or NPO Hydroxyzine Pamoate 50 mg 03/20/25 14:47 Hydroxyzine Pamoate 25 Mg Capsule PO Q4H PRN Itching Ibuprofen 800 mg in 200 mls @ 400 mls/hr 03/20/25 15:00 Caldolor 800 Mg/200 Ml IVPB Q6H PRN Breakthrough Pain Rated 1-3 or NPO Lisinopril 5 mg 03/21/25 09:00 03/24/25 09:38 Lisinopril 5 Mg Tablet PO 5 mg QAM [facility] Administration Morphine Sulfate 2 mg 03/19/25 13:31 03/23/25 05:28 Morphine Sulfate (*Crx) 4 Mg/Ml Inj IV PUSH 2 mg Q4H PRN Administration Pain Rated 7-10 Naloxone HCl 0.1 mg 03/20/25 14:47 Naloxone Hcl 0.4 Mg/Ml Vial IV PUSH Q2M PRN Opiate Reversal Nicotine 1 patch 03/23/25 20:35 03/24/25 09:39 Nicotine (*Pbkc) 7 Mg Patch TRANSDERM 1 patch DAILY FANG Administration Ondansetron HCl 4 mg 03/19/25 13:31 03/20/25 04:48 Ondansetron Inj 4 Mg/2 Ml Vial IV PUSH 4 mg Q6H PRN Administration Nausea And Vomiting Pantoprazole Sodium 40 mg 03/22/25 09:41 Pantoprazole 40 Mg Tablet PO Q12HR PRN Indigestion Polyethylene Glycol 17 gm 03/19/25 13:31 Polyethylene Glycol 3350 17 Gm Powd.Pack PO QAM PRN Constipation Polyethylene Glycol 17 gm 03/21/25 09:00 03/24/25 09:40 Polyethylene Glycol 3350 17 Gm Powd.Pack PO 17 gm QAM FANG Administration Rivaroxaban 10 mg 03/20/25 21:00 03/23/25 16:13 Rivaroxaban 10 Mg Tablet PO 10 mg DAILY@17 FANG Administration Vitamin B Complex 1 cap 03/22/25 09:00 03/24/25 09:38 Vitamin B Complex Capsule PO 1 cap DAILY FANG Administration Vitamin D 25 mcg 03/21/25 09:00 03/24/25 09:39 Cholecalciferol (Vitamin D3) 25 Mcg (1,000 Units) Tablet PO 25 mcg DAILY FANG Administration Radiology Results: ITS Impressions Head CT 03/19/25 10:34 IMPRESSION: No acute brain findings. No significant abnormality is seen. All CT scans at this facility are performed using low dose modulation techniques as appropriate to perform exam including the following: automated exposure control; use of iterative reconstruction technique; adjustment of the mA and/or kV according to patient size (this includes techniques or standardized protocols for targeted exams where dose is matched to indication/reason for exam). Cervical Spine CT 03/19/25 10:38 IMPRESSION: 1. No acute findings. Hip/Pelvis X-Ray 03/19/25 10:44 Impression: Fractures detailed above Lumbar Spine CT 03/19/25 10:50 IMPRESSION: 1. Mild S-shaped scoliosis of the lumbar and lower thoracic spine with mild to moderate spondylosis. No acute osseous abnormality. Chest X-Ray 03/20/25 12:12 IMPRESSION: No acute findings. Intraoperative X-Ray 03/20/25 13:54 IMPRESSION: As above. See also operative/surgical notes for complete details. Labs Labs: Laboratory Results - last 24 hr 03/24/25 08:47 WBC 10.4 H RBC 3.18 L Hgb 9.9 L Hct 31.1 L MCV 97.8 MCH 31.1 MCHC 31.8 L RDW 13.3 Plt Count 283 MPV 10.0 Immature Gran % (Auto) 1.2 H Neut % (Auto) 71.3 Lymph % (Auto) 14.3 L [place] % (Auto) 10.4 H Eos % (Auto) 2.3 Baso % (Auto) 0.5 Lymph # (Auto) 1.48 [place] # (Auto) 1.1 H Eos # (Auto) 0.2 Baso # (Auto) 0.1 Abs Immat Gran (auto) 0.12 H Absolute Neuts (auto) 7.4 H Absolute Nucleated RBC 0.000 Nucleated RBC % 0.0 Sodium 135 L Potassium 4.1 Chloride 101 Carbon Dioxide 32 H Anion Gap 2 L BUN 25 H Creatinine 0.85 Estim Creat Clear Calc 42 Estimated GFR > 60 Glucose 109 Calcium 9.7 Total Bilirubin 1.0 AST 30 ALT 8 Alkaline Phosphatase 67 Total Protein 6.2 L Albumin 3.4 L
[2025-03-24] MEDS: RIVAROXABAN 10 MG TABLET PO (16:14)
[2025-03-24 20:33] VITALS: BP 167/81; PULSE 102; RESP 20; TEMP 36.8; O2SAT 93
[2025-03-24 21:10] VITALS: PULSE 87; RESP 20; O2SAT 90
[2025-03-25 04:51] VITALS: BP 155/88; PULSE 100; RESP 20; TEMP 36.8; O2SAT 100
[2025-03-25 06:06] LABS: Hematocrit 29.9 % (37.0-47.0); Hemoglobin 9.6 g/dL (12.0-15.0); Immature Granulocyte Percent A 1.4 % (0-0.5); Lymphocytes Absolute Auto 1.48 K/mm3 (0.9-3.2); Mean Corpuscular HGB Conc 32.1 g/dl (32-36); Mean Corpuscular Hemoglobin 31.4 pg (26-34); Mean Corpuscular Volume 97.7 fl (80-100); Nucleated Red Blood Cells Absolute Auto 0.000 K/mm3 (0.0-0.012); Nucleated Red Blood Cells Perc 0.0 % (0.0-0.2); Platelet Count Result 269 k/mm3 (150-375); Red Blood Count 3.06 M/mm3 (4.2-5.4); White Blood Count 8.9 K/mm3 (4.5-10.0)
[2025-03-25] MEDS: HYDROcodone/acetaminophen (*CRX) 5-325 MG TABLET 1 TAB PO (06:39)
[2025-03-25 06:41] LABS: Alanine Aminotransferase 8 U/L (6-35); Albumin Level 3.3 g/dL (3.5-5.1); Alkaline Phosphatase 72 U/L (38-126); Anion Gap 2 mmol/L (4-12); Aspartate Amino Transferase 28 U/L (14-36); Bilirubin,Total 1.0 mg/dL (0.2-1.3); Blood Urea Nitrogen 22 mg/dL (7-17); Calcium 9.8 mg/dL (8.4-10.2); Carbon Dioxide 32 mmol/L (22-30); Chloride 99 mmol/L (98-107); Estimated CRCL calculation 42 ml/min; Estimated Glomerular Filt Rate > 60; Glucose 106 mg/dL (65-110); Potassium 4.1 mmol/L (3.4-5.0); Sodium 133 mmol/L (137-145); Total Protein 6.0 g/dL (6.3-8.2)
[2025-03-25 08:00] VITALS: BP 144/96; PULSE 78; RESP 16; TEMP 36.9; O2SAT 99
[2025-03-25] MEDS: VITAMIN B COMPLEX CAPSULE 1 CAP PO (09:20)
[2025-03-25] MEDS: hydroCHLOROthiazide 6.25 MG TABLET PO (09:21)
[2025-03-25] MEDS: CELECOXIB 200 MG CAPSULE PO (09:21)
[2025-03-25] MEDS: CHOLECALCIFEROL (VITAMIN D3) 25 MCG (1,000 UNITS) TABLET PO (09:21)
[2025-03-25] MEDS: OMEGA 3 POLYUNSAT FATTY ACIDS 1 GM CAP PO (09:21)
[2025-03-25] MEDS: NICOTINE (*PBKC) 7 MG PATCH 1 PATCH TRANSDERM (09:22)
[2025-03-25] MEDS: ESCITALOPRAM OXALATE 10 MG TABLET 20 MG PO (09:25)
--- NOTE | 2025-03-25 11:08 | P.DS_ITS ---
DS: Admitting Diagnosis Discharge Date 03/25/2025 Admitting Diagnosis Displaced intertrochanteric fracture of the left femur DS: Discharge Diagnosis Discharge Diagnosis (1) Displaced intertrochanteric fracture of left femur: Qualifiers: Encounter type: initial encounter Fracture type: closed Qualified Code(s): S72.142A - Displaced intertrochanteric fracture of left femur, initial encounter for closed fracture Code(s): S72.142A - Displaced intertrochanteric fracture of left femur, initial encounter for closed fracture Status: Acute Assessment and Plan: Patient sustained a mechanical ground level fall due to a missed that point. Reported left hip pain and low back pain post fall. Unable to ambulate. Trauma workup included a head CT, C-spine CT, hip/pelvic XR, CXR, and lumbar spine CT. Imaging significant for a displaced comminuted left intertrochanteric fracture, no other acute findings. Patient admitted for surgical management of her intratrochanteric fracture. * analgesics p.r.n.: Tylenol, [place], morphine * bowel regimen p.r.n.: Doculax p.r.n., MiraLax p.r.n. * antiemetic p.r.n. * check UA, monitor CBC and BMP preop * SCDs * encourage IS * will need PT/OT postop * orthopedics consulted >> left hip trochanteric nail * Post op 03/20/2025 Left hip trochanteric intramedullary nail fixation * Per orthopedic recommendations * Continue weight-bearing as tolerated * Continue p.r.n. pain control * DVT prophylaxis with several toe * SCDs, encourage incentive spirometer * Regular dressing changes -transition to Mepilex silver * Needs further rehab per PT/OT - working with [facility] regarding placement * [facility] accepted, pending auth (2) HTN (hypertension): Qualifiers: Hypertension type: primary hypertension Qualified Code(s): I10 - Essential (primary) hypertension Code(s): I10 - Essential (primary) hypertension Status: Chronic Assessment and Plan: * chronic, currently 104/80, stable * hold home medication(s) due to impending surgery, hydralazine p.r.n. ordered for BP greater than 180/90 * monitor (3) COPD (chronic obstructive pulmonary disease): Qualifiers: COPD type: unspecified COPD Qualified Code(s): J44.9 - Chronic o bstructive pulmonary disease, unspecified Code(s): J44.9 - Chronic obstructive pulmonary disease, unspecified Status: Chronic Assessment and Plan: No current evidence of exacerbation on exam. * continue albuterol p.r.n. and fluticasone-salmeterol b.i.d. (4) ANDRES (acute kidney injury): Code(s): N17.9 - Acute kidney failure, unspecified Status: Resolved Assessment and Plan: * Creatinine: 0.76 -> 1.49 , BUN: 16 -> 34 * IV Fluids: NS @ 100 mls/hr * Trend renal function * Trend electrolytes, correct as needed * 03/22: Kidney function improving, Cr down from 1.67 -> 1.27 * Resolved (5) UTI (urinary tract infection): Code(s): N39.0 - Urinary tract infection, site not specified Status: Ruled-out Assessment and Plan: * States that she is feeling she urinary pressure that she feels any time she gets a UTI * UA: 1+ protein, trace ketones +bilirubin 2+ leukocyte esterase, 51-100 WBC * UC obtained on 03/20 * started on Cefazolin * Continue to monitor urine cultures, WBC * Culture shows no growth - will discontinue Cefazolin Plan Diet: Heart healthy, NPO midnight GI Prophylaxis: Protonix DVT Prophylaxis: SCDs IV fluids: NS @ 100 mls/hr Lines/Tubes: Peripheral IV Code Status: Full code DS: Summary Hospital Course Reason for hospitalization: Fall Hospital Course: Per HPI: 85 y/o F with PMH of hypertension, SBO, asthma, vitamin-D deficiency, hyp erlipidemia, depression, and COPD presents here with left hip pain due to a ground level fall. The patient presents here from home via EMS for left hip pain following a ground level fall. The patient reports a mechanical fall he after she was going down the steps and missed the last step causing her to fall backwards onto her buttocks. She denies head strike or loss of consciousness. After the fall she had pain to her left hip and low back. She was unable to ambulate. Upon arrival to the ER she was noted have a shortened and rotated left lower extremity. She denies any other injury or neck pain. She is not currently on anticoagulation. At baseline it she intermittently uses an assistive device. Will use a cane when she is leaving the house for long periods or she has to go long distances. Initial VS at presentation: 98.2? F, HR 89, RR 16, 150/105, and 100% on 2 L nasal cannula. ED workup showed: WBC 16.7, no anemia, normal coags, sodium 135, creatinine 0.76 and GFR >60. Head CT showed no acute findings and no significant abnormality seen. C-spine CT showed no acute findings. Hip/pelvic XR showed a displaced comminuted left intertrochanteric fracture. CXR showed no acute cardiopulmonary findings. L-spine CT showed mild S shaped scoliosis in the lumbar and lower thoracic spine with [id number] spondylosis, no acute osseous abnormality. EKG showed sinus rhythm, rate 90. Hospital course: Orthopedics was consulted regarding displaced intertrochanteric fracture of the left femur. Patient opted for operative treatment. Left hip trochanteric intramedullary nail fixation was performed on 03/20 of the any complications. Orthopedics continued to assess patient throughout hospitalization. They recommended continue DVT prophylaxis with Xarelto, continuing PT/OT, weight- bearing as tolerated with a walker, continuing pain control and icing the hip in protecting the skin as much as possible. Urinary culture was obtained as the patient endorse some urinary pressure similar to previous times that she has had urinary tract infections, however the urinary culture was negative. She was initially placed on antibiotics but this was discontinued once the urine culture was negative. Patient continued to work with PT/OT throughout hospitalization. She did require some oxygen supplementation postoperatively but this was eventually weaned to room air gradually throughout hospitalization. PT/OT initially recommended [facility]SNF. Patient was accepted to [facility] and by 03/25, was hemodynamically stable and medically cleared for discharge. Xa relto will be continued for 4 weeks after discharge and follow-up instructions will be given for Orthopedics in the outpatient setting. She has been given appropriate discharge instructions and will be given further p.r.n. pain control for the next few days but otherwise can be discharged safely at this time. Status at Discharge Functional status at discharge: uses cane/walker Overall status at discharge: patient is progressing back to baseline Time Spent with Patient Time attestation: Total time spent providing and/or coordinating discharge services: 29 Exam Const: General: no acute distress Other: , female, elderly, uncomfortable secondary to hip pain HENMT: Face/Nose/Sinus: Normal nares present Mouth: Yes moist mucous membranes Eyes: General: appearance normal, both eyes and all related structures Sclera: sclerae normal Pupils: Equal, round and reactive pupils present EOM: EOMs intact bilaterally Resp: Effort & Inspection: normal respiratory effort Auscultation: clear to auscultation bilaterally Cardio: Rate: regular rate Rhythm: regular rhythm Other: S1-S2 present without murmur, rub, ectopy GI: Other: Abdomen soft. Hernia noted to the right mid quadrant, chronic for patient. Normoactive bowel sounds in all quadrants. No tenderness on exam. Skin: General skin exam: normal color and no rashes or lesions noted Wounds: no wounds Neuro: Cranial nerves: Yes Equal, round and reactive pupils present Speech: normal speech Motor exam (neuro): 5/5 motor strength present throughout Sensory Exam: normal sensation Other: A&O x4 Extrem: General: normal to inspection Other: No peripheral edema. Extremities warm and dry. Tenderness to palpation to the left lateral/anterior hip, some limited ROM due to recent surgery. Incision clean dry and intact. Psych: Mental Status: mental status grossly normal Affect: normal affect Other: Good insight and judgment, pleasant DS: Data Data Completed and Pending Labs on day of discharge: Labs from last 24 hours 03/25/25 05:49 WBC 8.9 RBC 3.06 L Hgb 9.6 L Hct 29.9 L MCV 97.7 MCH 31.4 MCHC 32.1 RDW 13.6 Plt Count 269 MPV 9.9 Immature Gran % (Auto) 1.4 H Neut % (Auto) 67.9 Lymph % (Auto) 16.7 L [place] % (Auto) 10.1 H Eos % (Auto) 3.3 Baso % (Auto) 0.6 Lymph # (Auto) 1.48 [place] # (Auto) 0.9 H Eos # (Auto) 0.3 Baso # (Auto) 0.1 Abs Immat Gran (auto) 0.12 H Absolute Neuts (auto) 6.0 Absolute Nucleated RBC 0.000 Nucleated RBC % 0.0 Sodium 133 L Potassium 4.1 Chloride 99 Carbon Dioxide 32 H Anion Gap 2 L BUN 22 H Creatinine 0.85 Estim Creat Clear Calc 42 Estimated GFR > 60 Glucose 106 Calcium 9.8 Total Bilirubin 1.0 AST 28 ALT 8 Alkaline Phosphatase 72 Total Protein 6.0 L Albumin 3.3 L Discharge Plan Discharge Attending physician on discharge: Jessica Mckeon Consulting providers: Jose M Kilgore; Adryan Velez Discharging Clinician: Jose M Kilgore Anticipated Discharge Date/Time: 03/25/25 11:04 Patient Disposition: SNF Activity: as tolerated and follow weight bearing status Diet: regular Discharge Instructions: Discharge disposition: [facility] Take medications as prescribed. Continue Xarelto for the next 4 weeks. Weight-bearing as tolerated Continue to ice hip the next several days and keep the surgical site clean and dry Monitor blood pressures Take caution while standing, rising, or moving Change positions slowly taking a break between each position change If you standing feel dizzy sit back down and take a break Encouraged to continue with yearly vaccinations Return to the emergency department if you develop sudden shortness of breath, chest pain, nausea, vomiting, upset stomach or intractable diarrhea Return to the emergency department if you develop fever greater than 101.5 Follow-up with the primary care physician within 1-2 weeks Follow-up with the orthopedic team as directed. Thank you for [facility] for your healthcare needs Patient Instructions: Antibiotic Form, Rivaroxaban (By mouth), How to Stop Smoking (DC) Patient Language: Grenadian Stand Alone Forms: General Discharge Information Follow-up/Referrals: Adryan Velez MD [Physician, Orthopedics] - 6 Weeks Rojelio Zhang MD [Primary Care Provider, Internal Medicine] Discharge Medications: New hydrocodone-acetaminophen 5-325 mg Tablet 1 tablet PO Q4H PRN (Reason: Moderate Pain (4-6)) Qty: 10 0RF Xarelto 10 mg Tablet 10 mg PO DAILY@17 24 Days Qty: 24 0RF Continued ibuprofen 800 mg tablet 800 mg PO TID albuterol sulfate 90 mcg/actuation HFA aerosol inhaler See Rx Instructions .ROUTE .COMPLEX Qty: 8.5 2RF Dose Instruction: INHALE 2 PUFFS BY MOUTH EVERY 4 TO 6 HOURS NEEDED FOR SHORTNESS OF BREATH OR WHEEZING Rx Instructions: INHALE 2 PUFFS BY MOUTH EVERY 4 TO 6 HOURS NEEDED FOR SHORTNESS OF BREATH OR WHEEZING omega-3 fatty acids-fish oil [Fish Oil] 360-1,200 mg capsule 1 cap PO DAILY Qty: 90 2RF guaifenesin [Mucinex] 600 mg tablet extended release 12hr 600 mg PO Q12H PRN (Reason: cough) benzonatate 100 mg capsule 100 mg PO TID PRN (Reason: cough) montelukast 10 mg tablet See Rx Instructions .ROUTE .COMPLEX Qty: 90 2RF Dose Instruction: TAKE 1 TABLET BY MOUTH EVERY DAY Rx Instructions: TAKE 1 TABLET BY MOUTH EVERY DAY cholecalciferol (vitamin D3) [Vitamin D3] 25 mcg (1,000 unit) capsule 25 mcg PO DAILY ibuprofen [Advil] 200 mg tablet 400 mg PO Q6H PRN (Reason: pain) vitamin B complex Capsule 1 cap PO DAILY escitalopram oxalate 20 mg tablet 20 mg PO DAILY Rx Instructions: TAKE 1 TABLET BY MOUTH EVERY DAY fluticasone propion-salmeterol 250-50 mcg/dose blister with device 1 inh inhalation Q12H Rx Instructions: INHALE 1 PUFF TWICE A DAY lisinopril-hydrochlorothiazide 10-12.5 mg tablet 0.5 tablet PO DAILY Rx Instructions: TAKE 1/2 TABLET BY MOUTH DAILY Date of admission: 03/19/25 13:30 Primary Care Provider: Rojelio Zhang Admitting Provider: Jessica Mckeon Attending physician on admission: Jessica Mckeon Condition: Stable Quality VTE Prophylaxis VTE prophylaxis: mechanical ordered
== END 2025-03-25 14:15 | DRG 481 ==
LOC: ANHED 10:33 → ANH3MEDSUR 13:27
PROVIDERS: Orthopaedic Surgery; Student in an Organized Health Care Education/Training Program; Admitting Provider Family Medicine; Emergency Provider Physician Assistant; PCP Emergency Medicine; Visit Provider Physician Assistant
PROC: 0QS736Z Reposition Left Upper Femur with Intramedullary Internal Fixation Device, Percutaneous Approach (ICD-10-PCS; CPT 27245; principal; 2025-03-20 10:30)
DX: S72.142A Displaced intertrochanteric fracture of left femur, initial encounter for closed fracture (principal); E87.1 Hypo-osmolality and hyponatremia; N17.9 Acute kidney failure, unspecified; R39.89 Other symptoms and signs involving the genitourinary system; I10 Essential (primary) hypertension; M41.85 Other forms of scoliosis, thoracolumbar region; E78.5 Hyperlipidemia, unspecified; J44.9 Chronic obstructive pulmonary disease, unspecified; K43.2 Incisional hernia without obstruction or gangrene; M47.895 Other spondylosis, thoracolumbar region; E55.9 Vitamin D deficiency, unspecified; F32.A Depression, unspecified; F17.210 Nicotine dependence, cigarettes, uncomplicated; F10.90 Alcohol use, unspecified, uncomplicated; Z79.51 Long term (current) use of inhaled steroids; Z87.19 Personal history of other diseases of the digestive system; W10.8XXA Fall (on) (from) other stairs and steps, initial encounter
CPT/HCPCS: 36415; 70450; 71045; 72125; 72131; 73502; 80048; 80053; 81001; 85025; 85610; 85730; 86850; 86900; 86901; 87086; 93005; 94640; 96374; 96375; 96376; 97110; 97116; 97162; 97166; 97530; 97535; 99199; 99285; J0690; A9270; C1713; G0378; J1100; J1171; J1885; J2270; J2371; J2405; J2704; J3010; J3290; J7030; J7120